=== PATIENT | male | born 1930 | race Caucasian/White ===

== ENCOUNTER 2016-06-14 10:45 | Inpatient (IN) ==
--- NOTE | 2016-06-14 15:35 | Pulmonology History & Physical ---
Date of Encounter: 06/14/16 Time of Encounter: 15:21 Assessment and Plan (1) Sepsis associated hypotension Current visit: Yes Status: Acute This elderly male with multiple comorbidities as previously outlined [facility] with [facility] shock secondary to MSSA bacteremia related to an infected left upper extremity AV fistula. The patient underwent surgical resection of the fistula, temporary hemodialysis catheter insertion and was treated appropriate antimicrobial agents based upon patient's allergy profile in the identification of MSSA from the blood. Patient is currently not hypotensive and has seemingly responded appropriately to medical measures for treatment of septic shock bacteremia and short-lived acute respiratory failure with hypoxia (underlying COPD plus possible aspiration pneumonia). Patient will be maintained on medications as delineated in his transfer sheet but most importantly he is to continue and complete a 6 week course of antibiotic therapy for MSSA endovascular infection (daptomycin). I also note the patient underwent evaluation for dysphagia and certainly is at risk of aspiration. Apparently from the speech pathology evaluation performed in [place], the patient was prescribed a grade honey thickened liquid diet. He will be reevaluated for this same situation while at [place]. Other medical therapies will be for provided for treatment of atrial fibrillation including anticoagulation with Coumadin. Should the patient's clinical status remained stable and he does not require ICU -type care. Nephrology service is aware of the patient and will be consulted for provision of dialytic support. Code(s): A41.9 - Sepsis, unspecified organism SNOMED Code(s): 58013516 History of Present Illness Chief complaint: Sepsis HPI: Mr. Stapleton is a 86 year old male transferred via life flight from [place] per request of the family as I understand it for continued care at [facility]. The patient presented to the local facility in [place] with altered mental status and fever. Ultimately, the patient was discovered to have localized infection of his left upper extremity AV fistula (end-stage renal disease patient) required resection of the same (2 1517) and underwent placement of a temporary left IJ catheter for hemodynamic dialysis. The other hospital course seemingly was complicated by the development of respiratory failure for which the patient required intubation for at least 1 or 2 days, possible aspiration pneumonia, encephalopathy. Patient did require administration of intravenous pressor agent for at least several days and at the time of the call to transfer this individual last week, he remained on low- dose pressor however that was titrated off perhaps 24-48 hours prior to the time of his transfer. This patient has an extensive past medical history which includes COPD, peripheral vascular disease for which she has a known abdominal aortic aneurysm , chronic atrial fibrillation and diastolic heart dysfunction, dementia, prostate cancer in the aforenoted end-stage renal disease. From review of the most recent progress note, the patient is currently receiving both daptomycin and meropenem for treatment of MSSA fistula infection (with bacteremia) and aspiration pneumonia respectively. The therapy for the aspiration pneumonia is seemingly complete at this time. Given the fact the patient had bacteremia however, will require a protracted course of daptomycin likely for 4 to 6 weeks assuming that he has sterilized blood cultures at this time and there is no evidence of dissemination of MSSA to other end organs. Patient is awake alert and communicative can answer very simple questions but is unable to provide any meaningful medical history. Past Med Surg Social Fam HX - Past Medical History Source: old records reviewed Medical history: aortic aneurysm, atrial fibrillation (Chronic), CHF, COPD, dementia, dialysis - Social History Smoking Status: Former smoker ROS unobtainable: due to mental status All Systems: A 10-system review of systems was performed and is negative for pertinent findings except as documented above in the HPI. Physical Examination Vital Signs: Vital Signs, Last 4 Hours Temp Pulse Resp BP Pulse Ox 06/14/16 15:01 100 06/14/16 15:00 97.6 F 82 16 114/81 97 General appearance: no acute distress, other (Elderly male appears chronically ill vitals reviewed) ENT: oropharynx moist Mallampati (class): 2 Neck: no lymphadenopathy Auscultation: bilateral: diminished breath sounds (Rhonchi bilaterally) Cardiovascular: irregular rhythm Gastrointestinal: normoactive bowel sounds Integumentary: other (No areas of hyperpigmentation over the feet and legs and arms bandaged left upper extremity from the site of AV fistula removal) Extremities: other (Note purple discoloration of left fifth toe) normal mental status, non-focal exam Results - Laboratory Findings Abnormal lab findings: Abnormal lab results POC Glucose 92 (58-89) H 06/14/16 14:52
[2016-06-14] MEDS ORDERED: Acetaminophen 325 MG TABLET PO PRN (15:57)
[2016-06-14] MEDS ORDERED: Naloxone 0.4 MG/ML INJ IVP PRN (15:57)
--- NOTE | 2016-06-14 16:25 | Event Note ---
Date of Encounter: 06/14/16 Time of Encounter: 16:22 I have reviewed outside laboratory data and we will listed in this note so that the information is not lost to the chart. From earlier today, the white count was 8.4 hemoglobin 9.5 platelet count of 85 the INR was 2.8 the INR the day before was 2.2 sodium 135 potassium 5.1 chloride 97 CO2 30 glucose 1:15 BUN 29 creatinine 3.25
[2016-06-14 17:46] LABS: INR 3.9
[2016-06-14 17:52] LABS: Prothrombin Time 43.6 Seconds (9.4-12.1)
[2016-06-14] MEDS: *HR* Warfarin 5 MG TABLET PO SCH (17:59)
[2016-06-14] MEDS: Famotidine 20 MG TABLET PO SCH (20:30)
[2016-06-14] MEDS ORDERED: traZODone 50 MG TABLET PO PRN (21:00)
[2016-06-14] MEDS: Ipratropium/Albuterol Neb 3 ML IH SCH (22:18)
[2016-06-15 03:25] LABS: Hematocrit 27.1 % (37.5-50.1); Hemoglobin 8.7 g/dL (12.9-16.9); Mean Corpuscular HGB Conc 32.1 g/dL (31.6-35.5); Mean Corpuscular Hemoglobin 34.8 pg (28.0-33.3); Mean Corpuscular Volume 108.4 fL (83.0-100.0); Nucleated Red Blood Cells 0.8 /100 WBC (0)
[2016-06-15 03:27] LABS: Immature Platelets 20.3 % (1.1-6.1); Mean Platelet Volume 12.3 fL (9.4-12.4); Red Cell Distribution Width 21.1 % (11.5-14.5)
[2016-06-15 03:38] LABS: Calcium 8.3 mg/dL (8.6-10.8); Potassium 5.2 mEq/L (3.5-4.5)
[2016-06-15 03:43] LABS: Platelet Count 91 K/mcL (140-400)
[2016-06-15 03:47] LABS: Lymphocytes # 0.5 K/mcL (0.6-4.6); Monocytes # 0.8 K/mcL (0.0-1.3); Neutrophils # 6.2 K/mcL (1.6-8.9); Platelet Estimate Decreased (Normal)
[2016-06-15 03:48] LABS: Large Platelets Present (Not Present); Polychromasia 1+ (Not Present); Target Cells 1+ (Not Present)
[2016-06-15 03:49] LABS: Anisocytosis 1+ (Not Present); Stomatocytes 1+ (Not Present)
[2016-06-15] MEDS: Ipratropium/Albuterol Neb 3 ML IH SCH ×4 (04:10→22:32)
[2016-06-15] MEDS: Levothyroxine 25 MCG TABLET PO SCH (06:41)
[2016-06-15 08:23] LABS: INR 5.6; Prothrombin Time 63.2 Seconds (9.4-12.1)
[2016-06-15] MEDS: predniSONE 10 MG TABLET PO SCH (08:34)
[2016-06-15] MEDS: Famotidine 20 MG TABLET PO SCH (08:34)
[2016-06-15] MEDS: Multivitamin Liquid 15 ML UDC PO SCH (08:35)
[2016-06-15] MEDS: *HR* Amiodarone 200 MG TABLET PO SCH (08:35)
--- NOTE | 2016-06-15 08:51 | Pulmonology Progress Note ---
Date of Encounter: 06/15/16 Time of Encounter: 08:49 Assessment and Plan (1) Sepsis associated hypotension Current Visit: Yes Status: Acute This elderly male with multiple comorbidities as previously outlined was [facility] with [facility] shock secondary to MSSA bacteremia related to an infected left upper extremity AV fistula. The patient underwent surgical resection of the fistula, temporary hemodialysis catheter insertion and was treated appropriate antimicrobial agents based upon patient's allergy profile in the identification of MSSA from the blood. Patient is currently not hypotensive and has seemingly responded appropriately to medical measures for treatment of septic shock bacteremia and short-lived acute respiratory failure with hypoxia (underlying COPD plus possible aspiration pneumonia). Patient will be maintained on medications as delineated in his transfer sheet but most importantly he is to continue and complete a 6 week course of antibiotic therapy for MSSA endovascular infection (daptomycin). Daptomycin was chosen as the antibiotic of choice given development of rash as a result of exposure to lactam drugs or my review of the infectious disease note from the [place] facility. Repeat blood cultures have been ordered in order to ensure the patient's bloodstream has been sterilized particularly in light of the need for placement of a more durable hemodialysis catheter. I also note the patient underwent evaluation for dysphagia and certainly is at risk of aspiration. Apparently from the speech pathology evaluation performed in [place], the patient was prescribed a grade honey thickened liquid diet. He will be reevaluated for this same situation while at [place]. Other medical therapies will be for provided for treatment of atrial fibrillation including anticoagulation with Coumadin. Coumadin is currently being held given elevation of INR which persists from evaluation of today's laboratory results. Should the patient's clinical status remained stable and he does not require ICU -type care. Nephrology service is aware of the patient and will be consulted for provision of dialytic support. Code(s): A41.9 - Sepsis, unspecified organism SNOMED Code(s): 50712285 Subjective Principal diagnosis: Sepsis Interval history: No acute overnight issues were noted per discussion with nursing staff. Patient 's hemodynamics are acceptable. He requires low-flow supplemental oxygen maintaining saturations in the upper 90% range. The patient is awake and alert this morning. He voices no complaints. He is mildly confused. Objective PUL Vital signs: Last Vital Signs Temp 97.5 F L 06/15/16 07:56 Pulse 93 06/15/16 07:00 Resp 14 06/15/16 07:00 BP 97/55 06/15/16 07:00 Pulse Ox 98 06/15/16 07:00 General appearance: no acute distress, other (Elderly male) Eyes: nonicteric ENT: oropharynx moist Neck: no lymphadenopathy, other (Left IJ HD catheter) Auscultation: bilateral: diminished breath sounds (Rhonchi bilaterally) Cardiovascular: irregular rhythm Gastrointestinal: normoactive bowel sounds, non-distended Integumentary: normal Extremities: edema, other (Note discoloration cyanosis of the left great toe, bluish discoloration of the other toes (similar to yesterday's evaluation). Pulses intact via Doppler per discussion with nursing staff.) Results - Laboratory Findings CBC and BMP: 06/15/16 03:17 06/15/16 03:17 PT/INR, D-dimer PT 63.2 Seconds (9.4-12.1) H* 06/15/16 07:42 Abnormal lab findings: Abnormal lab results RBC 2.50 M/mcL (4.19-5.50) L 06/15/16 03:17 Hgb 8.7 g/dL (12.9-16.9) L 06/15/16 03:17 Hct 27.1 % (37.5-50.1) L 06/15/16 03:17 MCV 108.4 fL (83.0-100.0) H 06/15/16 03:17 MCH 34.8 pg (28.0-33.3) H 06/15/16 03:17 RDW 21.1 % (11.5-14.5) H 06/15/16 03:17 Plt Count 91 K/mcL (140-400) L 06/15/16 03:17 Band Neutrophils % 10.0 % (0-4) H 06/15/16 03:17 Metamyelocytes % 2.0 % (0) H 06/15/16 03:17 Lymphocytes # 0.5 K/mcL (0.6-4.6) L 06/15/16 03:17 Nucleated RBCs/100 WBC 0.8 /100 WBC (0) H 06/15/16 03:17 Platelet Estimate Decreased (Normal) L 06/15/16 03:17 Large Platelets Present (Not Present) A 06/15/16 03:17 Immature Plt Fraction 20.3 % (1.1-6.1) H 06/15/16 03:17 Polychromasia 1+ (Not Present) A 06/15/16 03:17 Anisocytosis 1+ (Not Present) A 06/15/16 03:17 Target Cells 1+ (Not Present) A 06/15/16 03:17 Stomatocytes 1+ (Not Present) A 06/15/16 03:17 PT 63.2 Seconds (9.4-12.1) H* 06/15/16 07:42 INR 5.6 H* 06/15/16 07:42 Sodium 135 mEq/L (136-145) L 06/15/16 03:17 Potassium 5.2 mEq/L (3.5-4.5) H 06/15/16 03:17 BUN 43 mg/dL (8-26) H 06/15/16 03:17 Creatinine 4.36 mg/dL (0.72-1.25) H 06/15/16 03:17 Est GFR ( Amer) 16 (> 60) L 06/15/16 03:17 Est GFR (Non-Af Amer) 13 (> 60) L 06/15/16 03:17 POC Glucose 92 (58-89) H 06/14/16 14:52 Calcium 8.3 mg/dL (8.6-10.8) L 06/15/16 03:17 - Clinical Findings Intake & Output: Intake & Output 06/14/16 06/15/16 06/15/16 23:59 07:59 15:59 Intake Total 0 / 0 Output Total 0 / 0 0 / 0 Balance 0 / 0 0 / 0 Consult Discharge Plan - Plan Referrals: Carl Cormier DO [Primary Care Provider] -
[2016-06-15] MEDS ORDERED: Aspirin Enteric Coated 81 MG Tablet PO SCH (09:00)
--- NOTE | 2016-06-15 10:10 | Nephrology Consult Note ---
Date of Encounter: 06/15/16 Time of Encounter: 08:30 Assessment and Plan (1) ESRD (end stage renal disease) on dialysis Current Visit: Yes Status: Chronic Hx of ESRD on HD M/W/F. Patient of my colleague's Dr. Woodard. I search for his chronic/outpatient orders on the [facility], but since he has been out of the [facility] dialysis unit for so long (he was hospitalized in [place] since Apr), there were chronic orders, so I will empirically set him for HD tomorrow as follows: 3.5hr, 2K, 2.5Ca, 135Na, 35 CO2. He does not have much edema, so will target a weight near 88-89kg. Renal diet. Start Renal MTV CKD-BMD: trend Phos, Ca, Albumin (goal is 4 in the ESRD population) Anemia: see below Access: will check BCx to ensure that there is no ongoing bacteremia, which would then allow for placement of a Permacath. Please hold heparin (and if necessary consider heparin bridging) in anticipation of placing a Permacath. [facility] typically prefers to have "finalized" BCx before placing a Permacath and an INR <1.2. Will utilize the current left temporary HD catheter for HD tomorrow. Thank you for consulting the [facility] group. Will follow with you. (2) Anemia of chronic disease Current Visit: Yes Status: Chronic Could be multifactorial: ESRD, recent infection. I'll check iron studies and will empirically add BIJAN for a goal Hgb of 10-11. (3) MSSA (methicillin susceptible Staphylococcus aureus) infection Current Visit: Yes Status: Acute He was placed on Dapto; the pt had a reported allergic type response to Cephalosporins. Wound Care consult for the LUE: may need a wound vac Of note, if the pt will require Dapto, he may need a tunneled CVC (ideally avoid PICC lines in ESRD patients). At the outpatient dialysis unit, antiobiotic options are Vanco or Gent. (4) Hyperphosphatemia Current Visit: Yes Status: Chronic Will trend and continue the phos binder at current dosing Renal diet (low Phos and low K+) History of Present Illness - Reason for Consult Consult date: 06/15/16 end stage renal disease Requesting physician: Francesco Middleton - Chief Complaint ESRD, MSSA bacteremia and AVF infection - History of Present Illness 86 y/o WM with a pmh of ESRD, dementia, AF and et al who presented as a transfer from a distant outside hospital in [place]. The pt said he is from [place], [place], and his primary eclectic doctor is my colleague Dr. Woodard. His LUE AVF was excised per report and the wound in the LUE is draining. There is a left temporary dialysis catheter (it is placed rather odd and could be either in the base of the IJ or perhaps subclavian vein). He was not able to provide any signifiant or meaningful history. No family was present at bedside. I reviewed the progress notes and summarized history and discussed with Dr Middleton. He did not affirm N/V/D or chest pain. He voiced having a good appetite. I reviewed the [facility] to review his outpatient dialysis records: which did not have any recent findings, since he has been out of the local unit for at least a month. Past Med Surg Social Fam HX - Past Medical History Medical history: aortic aneurysm, atrial fibrillation (Chronic), CHF, COPD, dementia, dialysis - Past Surgical History Surgical History: cholecystectomy, IVC Filter - Social History Smoking Status: Former smoker Alcohol use: none Drug use: none - Family History Father Age: 70 Living Status: Age at : 70 Cause of : heart issues and stroke Hx Family Cardiac Disorders: Yes Hx Family Respiratory Disorders: No Hx Family Cancer: No Hx Family GI Disorders: No Hx Family Genitourinary Disorders: No Hx Family Endocrine Disorder: No Hx Family Musculoskeletal Disorders: No Hx Family Neuromuscular Disorders: No Hx Family Neurologic Disorders: No Hx Family HEENT Disorders: No Hx Family Autoimmune Disorders: No Hx Family Reproductive Disorders: No Hx Family Psychosocial Disorders: No Hx Family Medical Disorders: No Mother Living Status: Age at : 70 Cause of : cancer Medications and Allergies Amiodarone [Cordarone] 100 mg PO DAILY 06/14/16 [History] Aspirin [Lo-Dose Aspirin EC] 81 mg PO DAILY 06/14/16 [History] Donepezil [Aricept] 5 mg PO DAILY 06/14/16 [History] Famotidine [Heartburn Prevention] 20 mg PO DAILY 06/14/16 [History] Folic Acid/Vit Bcomp,C [Dialyvite Tablet] 1 tab PO DAILY 06/14/16 [History] Lactobacillus Acidophilus [Acidophilus] 1 tab PO BID 06/14/16 [History] Levothyroxine [Synthroid] 25 mcg PO DAILY 06/14/16 [History] Metoprolol Succinate/Hctz [Metoprolol ER-Hctz 25-12.5 mg] 1 tab PO BID 06/14/16 [History] Midodrine HCl 10 mg PO DAILY 06/14/16 [History] Sevelamer [Renvela] 800 mg PO TID 06/14/16 [History] Warfarin [Coumadin] 3.5 mg PO DAILY 06/14/16 [History] Allergies No Known Allergies Allergy (Verified 06/14/16 15:41) Review of Systems All Systems: reviewed and no additional remarkable complaints except as stated Exam - Vital Signs Vital signs: Initial Vital Signs Temp Pulse Resp BP Pulse Ox 97.6 F 82 16 114/81 97 06/14/16 15:00 06/14/16 15:00 06/14/16 15:00 06/14/16 15:00 06/14/16 15:00 Vital Signs - Last 8 Hours Temp Pulse Resp BP Pulse Ox 06/15/16 08:00 91 16 113/62 98 06/15/16 07:56 97.5 F L 06/15/16 07:00 93 14 97/55 98 06/15/16 06:00 88 18 90/55 100 06/15/16 05:00 98 14 119/74 99 06/15/16 04:10 18 98 06/15/16 04:00 83 14 119/68 99 06/15/16 03:00 87 12 104/64 98 Intake and Output 06/14/16 06/15/16 06/15/16 23:59 07:59 15:59 Intake Total 0 / 0 Output Total 0 / 0 0 / 0 Balance 0 / 0 0 / 0 Intake: Oral 0 / 0 Output: Urine 0 / 0 0 / 0 - General Appearance General appearance: well-developed, chronically ill, fatigue, frail EENT: ATNC, PERRL, mucous membranes moist Neck: supple Respiratory: clear Cardiology: no edema, regular rate, irregular rhythm, normal S1, normal S2 - Dialysis Access Additional Comments: LUE dressing was dirty and with the dressing off was draining. There is a left temporary HD catheter (appears to be either the base of the IJ or in the subclavian vein). Gastrointestinal: normoactive bowel sounds, no tenderness, no guarding Additional Comments: LUE wound Neurologic: no focal deficit, no asterixis, disoriented Musculoskeletal: no deformities, no erythema, no cyanosis Psychiatric: mood/affect appropriate, cooperative Results - Lab Results 06/15/16 03:17 06/15/16 03:17 Most recent lab results Calcium 8.3 mg/dL (8.6-10.8) L 06/15/16 03:17 I reviewed the above auto generated labs, meds, history, vitals, and available records plus progress notes. Consult Discharge Plan - Plan Referrals: Carl Cormier DO [Primary Care Provider] -
[2016-06-15] MEDS ORDERED: DAPTOmycin 600 MG in 0.9 % Sodium Chloride 100 ML IVPB SCH (17:00)
[2016-06-15] MEDS: *HR* Warfarin 5 MG TABLET PO SCH (18:40)
[2016-06-16 04:40] LABS: Basophils % 0.1 %; Hemoglobin 8.8 g/dL (12.9-16.9)
[2016-06-16 04:41] LABS: Eosinophils # 0.1 K/mcL (0.0-0.6); Hematocrit 27.8 % (37.5-50.1); Immature Granulocytes % 2.4 % (0-4); Immature Platelets 18.3 % (1.1-6.1); Lymphocytes # 0.5 K/mcL (0.6-4.6); Lymphocytes % 6.1 %; Mean Corpuscular HGB Conc 31.7 g/dL (31.6-35.5); Mean Corpuscular Hemoglobin 34.8 pg (28.0-33.3); Mean Corpuscular Volume 109.9 fL (83.0-100.0); Mean Platelet Volume 12.9 fL (9.4-12.4); Monocytes # 0.8 K/mcL (0.0-1.3); Monocytes % 9.1 %; Platelet Count 106 K/mcL (140-400); Red Blood Count 2.53 M/mcL (4.19-5.50); Red Cell Distribution Width 20.6 % (11.5-14.5); Segmented Neutrophils % 81.3 %
[2016-06-16 04:48] LABS: Neutrophils # 6.8 K/mcL (1.6-8.9)
[2016-06-16] MEDS: Ipratropium/Albuterol Neb 3 ML IH SCH ×4 (04:56→22:54)
[2016-06-16 04:58] LABS: Albumin 2.3 g/dL (3.5-5.0); Calcium 8.4 mg/dL (8.6-10.8); Phosphorous 6.9 mg/dL (2.3-4.7); Potassium 5.5 mEq/L (3.5-4.5)
[2016-06-16] MEDS: Levothyroxine 25 MCG TABLET PO SCH (06:16)
[2016-06-16] MEDS ORDERED: 0.9 % Sodium Chloride 250 ML IV PRN ×2 (07:49→11:56)
[2016-06-16] MEDS ORDERED: Albumin 25% 12.5gm/50mL 12.5 GM/50 ML IV.SOLN IVPB PRN ×2 (07:49→11:56)
--- NOTE | 2016-06-16 08:24 | Pulmonology Progress Note ---
<Leobardo Phipps - Last Filed: 06/16/16 18:22> Date of Encounter: 06/16/16 Time of Encounter: 08:10 Assessment and Plan (1) Sepsis associated hypotension Current Visit: Yes Status: Acute Patient transferred from [place], originally admitted for sepsis with hypotension. with MSSA Bacteremia, noted to have contaiminated dialysis fistula. Procedure note in records states fistula excised. In reviewing records it appears patient had a reaction to oxacillin. Patient has been continued on Daptomycin for what appears to be 12 days. Repeat cultures pending, if negative, IR to place permacath. (2) MSSA (methicillin susceptible Staphylococcus aureus) infection Current Visit: Yes Status: Acute Blood cultures pending, see plan above. (3) ESRD (end stage renal disease) on dialysis Current Visit: Yes Status: Chronic In discussion with nephrology, if blood cultures negative they plan to have patient NPO at midnight and permacath placed the following day by IR. Then can be discharged to continue dialysis through [facility] in [place]. Dialysis on Mon-Wed-Fri If needed, could consider tunnelled catheter placement. (4) Atrial fibrillation Current Visit: Yes Status: Chronic Chronic A fib on Warfarin. INR 5.6 yesterday, pending repeat INR today. Warfarin switched to dosing per pharmacy. Consider agents to reverse INR. Qualifiers: Atrial fibrillation type: chronic Qualified Code(s): I48.2 - Chronic atrial fibrillation (5) Anemia of chronic disease Current Visit: Yes Status: Chronic Stable, Hgb 8.7>8.8. (6) Hyperkalemia Current Visit: Yes Status: Acute Elevated at 5.5. Dialysis today. (7) Hyperphosphatemia Current Visit: Yes Status: Chronic Elevated at 6.9. Dialysis today Subjective Principal diagnosis: Sepsis Interval history: No acute overnight issues were noted per discussion with nursing staff. Patient 's hemodynamics are acceptable. He requires low-flow supplemental oxygen maintaining saturations in the upper 90% range. The patient is awake and alert this morning. He voices no complaints. States lack of appetite. Objective PUL Vital signs: Last Vital Signs Temp 95.8 F L 06/16/16 07:14 Pulse 82 06/16/16 08:04 Resp 16 06/16/16 06:00 BP 93/57 06/16/16 06:00 Pulse Ox 99 06/16/16 06:00 General appearance: no acute distress Eyes: nonicteric ENT: oropharynx moist Neck: supple Effort: normal Auscultation: bilateral: wheezes, rhonchi Cardiovascular: irregular rhythm Gastrointestinal: normoactive bowel sounds, soft, non-tender, non-distended Integumentary: other (areas of hyperpigmentation over the feet and legs and arms ; bandaged left upper extremity from the site of AV fistula removal.) Extremities: no edema, no clubbing, cool, other (1+ pulses bilaterally) Musculoskeletal: no deformities non-focal exam mood appropriate Results - Laboratory Findings CBC and BMP: 06/16/16 04:20 06/16/16 04:20 PT/INR, D-dimer PT 63.2 Seconds (9.4-12.1) H* 06/15/16 07:42 Abnormal lab findings: Abnormal lab results RBC 2.53 M/mcL (4.19-5.50) L 06/16/16 04:20 Hgb 8.8 g/dL (12.9-16.9) L 06/16/16 04:20 Hct 27.8 % (37.5-50.1) L 06/16/16 04:20 MCV 109.9 fL (83.0-100.0) H 06/16/16 04:20 MCH 34.8 pg (28.0-33.3) H 06/16/16 04:20 RDW 20.6 % (11.5-14.5) H 06/16/16 04:20 Plt Count 106 K/mcL (140-400) L 06/16/16 04:20 MPV 12.9 fL (9.4-12.4) H 06/16/16 04:20 Band Neutrophils % 10.0 % (0-4) H 06/15/16 03:17 Metamyelocytes % 2.0 % (0) H 06/15/16 03:17 Lymphocytes # 0.5 K/mcL (0.6-4.6) L 06/16/16 04:20 Nucleated RBCs/100 WBC 1.0 /100 WBC (0) H 06/16/16 04:20 Platelet Estimate Decreased (Normal) L 06/15/16 03:17 Large Platelets Present (Not Present) A 06/15/16 03:17 Immature Plt Fraction 18.3 % (1.1-6.1) H 06/16/16 04:20 Polychromasia 1+ (Not Present) A 06/15/16 03:17 Anisocytosis 1+ (Not Present) A 06/15/16 03:17 Target Cells 1+ (Not Present) A 06/15/16 03:17 Stomatocytes 1+ (Not Present) A 06/15/16 03:17 PT 63.2 Seconds (9.4-12.1) H* 06/15/16 07:42 INR 5.6 H* 06/15/16 07:42 Sodium 135 mEq/L (136-145) L 06/16/16 04:20 Potassium 5.5 mEq/L (3.5-4.5) H 06/16/16 04:20 BUN 55 mg/dL (8-26) H D 06/16/16 04:20 Creatinine 5.46 mg/dL (0.72-1.25) H 06/16/16 04:20 Est GFR ( Amer) 12 (> 60) L 06/16/16 04:20 Est GFR (Non-Af Amer) 10 (> 60) L 06/16/16 04:20 Glucose 114 mg/dL (70-99) H 06/16/16 04:20 POC Glucose 92 (58-89) H 06/14/16 14:52 Calcium 8.4 mg/dL (8.6-10.8) L 06/16/16 04:20 Phosphorus 6.9 mg/dL (2.3-4.7) H 06/16/16 04:20 Iron 51 mcg/dL (65-175) L 06/16/16 04:20 Transferrin 167 mg/dL (174-364) L 06/16/16 04:20 Ferritin 1381 ng/ml (22-275) H 06/16/16 04:20 Albumin 2.3 g/dL (3.5-5.0) L 06/16/16 04:20 PTH Intact 199.7 pg/ml (8.5-72.5) H 06/16/16 04:20 - Clinical Findings Intake & Output: Intake & Output 06/15/16 06/16/16 06/16/16 23:59 07:59 15:59 Intake Total 50 / 50 Balance 50 / 50 Weight 89.7 kg Consult Discharge Plan - Plan Referrals: Carl Cormier DO [Primary Care Provider] - <DaoNicole Daisy - Last Filed: 06/16/16 19:57> Date of Encounter: 06/16/16 Objective PUL Vital signs: Last Vital Signs Temp 97.9 F 06/16/16 15:43 Pulse 83 06/16/16 15:43 Resp 18 06/16/16 16:49 BP 92/60 06/16/16 15:43 Pulse Ox 98 06/16/16 16:49 Results - Laboratory Findings CBC and BMP: 06/16/16 04:20 06/16/16 04:20 PT/INR, D-dimer PT 64.5 Seconds (9.4-12.1) H* 06/16/16 11:25 Abnormal lab findings: Abnormal lab results RBC 2.53 M/mcL (4.19-5.50) L 06/16/16 04:20 Hgb 8.8 g/dL (12.9-16.9) L 06/16/16 04:20 Hct 27.8 % (37.5-50.1) L 06/16/16 04:20 MCV 109.9 fL (83.0-100.0) H 06/16/16 04:20 MCH 34.8 pg (28.0-33.3) H 06/16/16 04:20 RDW 20.6 % (11.5-14.5) H 06/16/16 04:20 Plt Count 106 K/mcL (140-400) L 06/16/16 04:20 MPV 12.9 fL (9.4-12.4) H 06/16/16 04:20 Band Neutrophils % 10.0 % (0-4) H 06/15/16 03:17 Metamyelocytes % 2.0 % (0) H 06/15/16 03:17 Lymphocytes # 0.5 K/mcL (0.6-4.6) L 06/16/16 04:20 Nucleated RBCs/100 WBC 1.0 /100 WBC (0) H 06/16/16 04:20 Platelet Estimate Decreased (Normal) L 06/15/16 03:17 Large Platelets Present (Not Present) A 06/15/16 03:17 Immature Plt Fraction 18.3 % (1.1-6.1) H 06/16/16 04:20 Polychromasia 1+ (Not Present) A 06/15/16 03:17 Anisocytosis 1+ (Not Present) A 06/15/16 03:17 Target Cells 1+ (Not Present) A 06/15/16 03:17 Stomatocytes 1+ (Not Present) A 06/15/16 03:17 PT 64.5 Seconds (9.4-12.1) H* 06/16/16 11:25 INR 5.7 H* 06/16/16 11:25 Sodium 135 mEq/L (136-145) L 06/16/16 04:20 Potassium 5.5 mEq/L (3.5-4.5) H 06/16/16 04:20 BUN 55 mg/dL (8-26) H D 06/16/16 04:20 Creatinine 5.46 mg/dL (0.72-1.25) H 06/16/16 04:20 Est GFR ( Amer) 12 (> 60) L 06/16/16 04:20 Est GFR (Non-Af Amer) 10 (> 60) L 06/16/16 04:20 Glucose 114 mg/dL (70-99) H 06/16/16 04:20 POC Glucose 92 (58-89) H 06/14/16 14:52 Calcium 8.4 mg/dL (8.6-10.8) L 06/16/16 04:20 Phosphorus 6.9 mg/dL (2.3-4.7) H 06/16/16 04:20 Iron 51 mcg/dL (65-175) L 06/16/16 04:20 Transferrin 167 mg/dL (174-364) L 06/16/16 04:20 Ferritin 1381 ng/ml (22-275) H 06/16/16 04:20 Creatine Kinase 20 Units/L (30-200) L 06/16/16 11:25 Albumin 2.3 g/dL (3.5-5.0) L 06/16/16 04:20 PTH Intact 199.7 pg/ml (8.5-72.5) H 06/16/16 04:20 - Clinical Findings Intake & Output: Intake & Output 06/16/16 06/16/16 06/16/16 07:59 15:59 23:59 Intake Total 600 / 600 0 / 0 Output Total 2099 / 2099 Balance -1500 / -1500 0 / 0 Weight 89.7 kg - Attending Attestation I examined this patient and my medical decision-making was reviewed with the AIRPLANE FLIGHT ATTENDANT/PA/Advanced Practice Nurse/Resident Physician. I agree with the documented findings, disposition and treatment plan as described except to the extent set forth below. Patient seen and examined. Labs, radiology, chart personally reviewed. 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 Nephrology following up with patient. Endorcine: blood glucose is monitored Lines: all lines checked and no evidence of infections Skin: skin care to prevent pressure ulcers per nursing routine care
[2016-06-16] MEDS: *HR* Amiodarone 200 MG TABLET PO SCH (08:34)
[2016-06-16] MEDS: Multivitamin Liquid 15 ML UDC PO SCH ×3 (08:36→10:51)
[2016-06-16] MEDS: predniSONE 10 MG TABLET PO SCH (08:37)
[2016-06-16] MEDS ORDERED: Aspirin 81 MG TAB.CHEW PO SCH (09:00)
[2016-06-16] MEDS ORDERED: Famotidine 20 MG TABLET PO SCH (09:00)
[2016-06-16] MEDS ORDERED: Renal Vitamin 1 MG CAPSULE PO SCH (09:00)
[2016-06-16] MEDS ORDERED: 0.9 % Sodium Chloride 2,000 ML ONE (09:38)
[2016-06-16] MEDS ORDERED: Albumin 25% 12.5gm/50mL 12.5 GM/50 ML IV.SOLN ONE (10:08)
--- NOTE | 2016-06-16 10:57 | Nephrology Progress Note ---
Date of Encounter: 06/16/16 Time of Encounter: 08:20 - Assessment and Plan (1) ESRD (end stage renal disease) on dialysis Current Visit: Yes Status: Chronic HD today. Pt was s/e while on HD this AM. Vitals, access pressures were reviewed. When his BCx return finalized, then he will need a Permacath. If he needs chronic Dapto, he may need a tunneled CVC vs a PICC Thank you. (2) Anemia of chronic disease Current Visit: Yes Status: Chronic (3) MSSA (methicillin susceptible Staphylococcus aureus) infection Current Visit: Yes Status: Acute (4) Hyperphosphatemia Current Visit: Yes Status: Chronic Subjective Principal diagnosis: Sepsis Interval history: Pt was seen/examined while on HD. He did not affirm N/V/D. Objective - Vital Signs Vital signs: Vital Signs Temp Pulse Resp BP Pulse Ox 06/16/16 10:42 81 22 81/55 99 06/16/16 09:55 77/51 06/16/16 09:40 77/51 06/16/16 09:25 95/56 06/16/16 09:10 93/60 06/16/16 09:00 85 22 83/55 99 06/16/16 08:55 97.5 F L 22 96/60 06/16/16 08:04 82 06/16/16 07:14 95.8 F L 06/16/16 06:00 82 16 93/57 99 06/16/16 05:00 82 12 97/64 100 06/16/16 04:56 16 98 06/16/16 04:00 81 14 99/62 100 06/16/16 03:00 96.8 F L 89 18 122/71 97 06/16/16 02:00 86 16 113/74 99 06/16/16 01:00 91 14 114/68 95 06/16/16 00:00 96.7 F L 94 16 118/85 96 06/15/16 23:00 91 12 121/59 95 06/15/16 22:32 17 95 06/15/16 22:00 88 14 131/79 96 06/15/16 21:00 96 16 125/68 94 L 06/15/16 20:00 100 16 130/68 93 L 06/15/16 19:00 97.5 F L 89 16 115/70 97 06/15/16 18:00 91 16 109/70 96 06/15/16 17:00 97 16 99/79 98 06/15/16 16:34 16 99 06/15/16 16:00 95 16 117/70 97 06/15/16 15:10 97.6 F 06/15/16 15:00 79 14 105/68 99 06/15/16 14:00 84 116/66 99 06/15/16 13:00 92 14 103/79 96 06/15/16 12:00 90 16 103/73 96 06/15/16 11:00 97.6 F 96 16 114/52 98 Intake and Output 06/15/16 06/16/16 06/16/16 23:59 07:59 15:59 Intake Total 50 / 50 15 / 15 600 / 600 Balance 50 / 50 15 / 15 600 / 600 Intake: Oral 50 / 50 15 / 15 Intake, Rinseback and 600 / 600 Flushes Other: Weight 89.7 kg Hemodialysis Net Fluid 600 Removed (mL) Patient Weight 06/16/16 23:59 Weight 89.7 kg - General Appearance Exam: General appearance: well-developed, chronically ill, fatigue, frail EENT: ATNC, PERRL, mucous membranes moist Neck: supple Respiratory: clear Cardiology: no edema, regular rate, irregular rhythm, normal S1, normal S2 - Dialysis Access Additional Comments: LUE dressing was dirty and with the dressing off was draining. There is a left temporary HD catheter (appears to be either the base of the IJ or in the subclavian vein). Gastrointestinal: normoactive bowel sounds, no tenderness, no guarding Additional Comments: LUE wound Neurologic: no focal deficit, no asterixis, disoriented Musculoskeletal: no deformities, no erythema, no cyanosis Psychiatric: mood/affect appropriate, cooperative - Lab 06/16/16 04:20 06/16/16 04:20 Most recent lab results Calcium 8.4 mg/dL (8.6-10.8) L 06/16/16 04:20 Phosphorus 6.9 mg/dL (2.3-4.7) H 06/16/16 04:20 Consult Discharge Plan - Plan Referrals: Carl Cormier DO [Primary Care Provider] -
[2016-06-16] MEDS ORDERED: traZODone 50 MG TABLET PO PRN (11:56)
[2016-06-16] MEDS ORDERED: Acetaminophen 325 MG TABLET PO PRN (11:56)
[2016-06-16] MEDS ORDERED: Naloxone 0.4 MG/ML INJ IVP PRN (11:56)
[2016-06-16 12:00] LABS: INR 5.7; Prothrombin Time 64.5 Seconds (9.4-12.1)
--- NOTE | 2016-06-16 13:25 | Internal Med History&Physical ---
<Dior Escobedo - Last Filed: 06/16/16 17:26> Date of Encounter: 06/16/16 Time of Encounter: 13:00 Assessment and Plan (1) Sepsis associated hypotension Current visit: Yes Status: Acute 1 improved- presently not on any pressers, continues on midorine- will continue to monitor BP- maintain >100 2 will hold metoprolol for systolic <100 3 we will continue with present ATB regime of Daptomycin. (2) Supratherapeutic INR Current visit: Yes Status: Acute 1 presently INR 5.7 - no s/sx of active bleed. Will hold coumadin for now. Monitor INR- Vit K (3) MSSA (methicillin susceptible Staphylococcus aureus) infection Current visit: Yes Status: Acute 1 patient blood cultures positive for MSSA originally given OXACILLIN however did have a reaction-papular macular rash. He was switched to daptomycin he is to receive daptomycin total 42 days post fistula excision-last day is 07/16/16. 2 continue to monitor CBC (4) Anemia of chronic disease Current visit: Yes Status: Chronic 1 presently patient's hemoglobin stable at 8.8 to continue to monitor CBC and transfuse as needed 2 continue with aranesp (5) Atrial fibrillation Current visit: Yes Status: Chronic 1 presently controlled rate we will continue with metoprolol with parameters to hold for systolic less than 100 rate less than 60. 2 we will continue with Coumadin and monitor INR daily dose to maintain INR 2- 3. Presently INR 5.7 we will hold Coumadin Qualifiers: Atrial fibrillation type: chronic Qualified Code(s): I48.2 - Chronic atrial fibrillation (6) ESRD (end stage renal disease) on dialysis Current visit: Yes Status: Chronic 1 she receives dialysis Thursday. Nephrology consulted for dialysis 2 monitor intake and output 3 daily weights 4 when nephrotoxins renal dose and probiotics 5 renal diet (7) DVT prophylaxis Current visit: Yes Status: Acute 1 she is on Coumadin (8) Physical deconditioning Current visit: Yes Status: Acute 1 she has extended hospitalization over a month NICU. We will consult PT and OT 2. May Require admission to ECF for extended therapy and strengthening (9) Pericardial friction rub present Current visit: Yes Status: Acute 1 Upon assessment noted a faint pericardial friction rub. This appears to be new. He denies any CP, EKG appears stable no diffuse ST elevation or WI depression. will obtain echo Internal Medicine - H&P: HPI Chief complaint: sepsis Admitted From: Intrahospital Transfer Plans for Post Hospital Care: Home History of present illness: Mr. Stapleton is a 86 year old male past medical history of end-stage renal disease requiring dialysis Thursday chronic atrial fibrillation CHF COPD dementia aortic aneurysm. Patient is presently confused information obtained from medical records as well as nursing staff. According medical records this patient was transferred via med flight to this facility from outlying facility in [place] (per family request) where he had been hospitalized for a little over a month. He had been admitted for septic shock secondary to MSSA bacteria related to infected left upper extremity AV fistula. AV fistula was removed and antibiotic treatment was initiated . He initially received oxacillin however. He developed a rash and was switched to daptomycin. Due to MSSA endovascular infection daptomycin should be continued and complete 6 week course of antibiotic therapy. Presently he is not on any pressors he is on very little oxygen support maintain oxygen saturation greater than 92%. He is being followed by nephrology services and received dialysis this a.m. without any complications. During assessment did note a faint pericardial friction rub, this appears to be new. He denies any CP He appears to be hemodynamically stable and has been admitted to medical floor for further treatment. I reviewed case with Dr Del Castillo who agrees with plan Past Med Surg Social Fam HX - Past Medical History Medical history: aortic aneurysm, atrial fibrillation (Chronic), CHF, COPD, dementia, dialysis - Past Surgical History Surgical History: cholecystectomy, IVC Filter - Social History Smoking Status: Former smoker Alcohol use: none Drug use: none - Family History Father Age: 70 Living Status: Age at : 70 Cause of : heart issues and stroke Hx Family Cardiac Disorders: Yes Hx Family Respiratory Disorders: No Hx Family Cancer: No Hx Family GI Disorders: No Hx Family Genitourinary Disorders: No Hx Family Endocrine Disorder: No Hx Family Musculoskeletal Disorders: No Hx Family Neuromuscular Disorders: No Hx Family Neurologic Disorders: No Hx Family HEENT Disorders: No Hx Family Autoimmune Disorders: No Hx Family Reproductive Disorders: No Hx Family Psychosocial Disorders: No Hx Family Medical Disorders: No Mother Living Status: Age at : 70 Cause of : cancer Internal Medicine - H&P: Meds Amiodarone [Cordarone] 100 mg PO DAILY 06/14/16 [History] Aspirin [Lo-Dose Aspirin EC] 81 mg PO DAILY 06/14/16 [History] Donepezil [Aricept] 5 mg PO DAILY 06/14/16 [History] Famotidine [Heartburn Prevention] 20 mg PO DAILY 06/14/16 [History] Folic Acid/Vit Bcomp,C [Dialyvite Tablet] 1 tab PO DAILY 06/14/16 [History] Lactobacillus Acidophilus [Acidophilus] 1 tab PO BID 06/14/16 [History] Levothyroxine [Synthroid] 25 mcg PO DAILY 06/14/16 [History] Metoprolol Succinate/Hctz [Metoprolol ER-Hctz 25-12.5 mg] 1 tab PO BID 06/14/16 [History] Midodrine HCl 10 mg PO DAILY 06/14/16 [History] Sevelamer [Renvela] 800 mg PO TID 06/14/16 [History] Warfarin [Coumadin] 3.5 mg PO DAILY 06/14/16 [History] Allergies Oxacillin Allergy (Verified 06/16/16 14:31) Rash ROS unobtainable: due to mental status All Systems PM: A 10-system review of systems was performed and is negative for pertinent findings except as documented above in the HPI. - Constitutional Vitals: Temp Pulse Resp BP Pulse Ox 97.5 F L 87 22 90/44 99 06/16/16 08:55 06/16/16 11:00 06/16/16 12:10 06/16/16 12:10 06/16/16 11:00 General appearance: Present: disheveled, A&O X 2, pleasant - Head Head exam: Present: atraumatic, normocephalic - Respiratory Respiratory exam: Present: rhonchi, wheezes. Absent: accessory muscle use, rales - Cardiovascular Cardiovascular exam: Present: irregular rhythm, rubs, +S1, +S2. Absent: diastolic murmur, gallop, systolic murmur - GI/Abdominal GI/Abdominal exam: Present: normal bowel sounds, soft, no peritoneal signs. Absent: distended, tenderness - Extremities Exam Extremities exam: Present: warm, radial pulses palpable and symetrical. Absent : calf tenderness, cyanotic, pedal edema - Neurological Exam Neurological exam: Present: alert, no focal deficits, strengths equal and symetr throughout. Absent: pronater drift, facial droop, speech deficit - Skin Skin exam: Present: dry, intact Additional comments: Ecchymotic areas covering upper and lower extremities at various stages of healing Internal Med - H&P Results - Labs CBC & Chem 7: 06/16/16 04:20 06/16/16 04:20 Labs: Short CBC 06/16/16 Range/Units 04:20 WBC 8.3 (4.3-11.1) K/mcL Hgb 8.8 L (12.9-16.9) g/dL Hct 27.8 L (37.5-50.1) % Plt Count 106 L (140-400) K/mcL Neutrophils # 6.8 (1.6-8.9) K/mcL BMP 06/16/16 04:20 Sodium 135 L Potassium 5.5 H Chloride 100 Carbon Dioxide 23 BUN 55 H D Creatinine 5.46 H Glucose 114 H Calcium 8.4 L Liver Function 06/16/16 Range/Units 04:20 Albumin 2.3 L (3.5-5.0) g/dL <García Del Castillo - Last Filed: 06/17/16 15:21> Date of Encounter: 06/17/16 Internal Medicine - H&P: HPI History of present illness: Mr. Stapleton is a 86 year old male All Systems PM: A 10-system review of systems was performed and is negative for pertinent findings except as documented above in the HPI. - Constitutional Vitals: Temp Pulse Resp BP Pulse Ox 97.5 F L 78 16 88/44 100 06/17/16 12:58 06/17/16 12:58 06/17/16 12:58 06/17/16 12:58 06/17/16 12:58 Internal Med - H&P Results - Labs CBC & Chem 7: 06/17/16 09:25 06/17/16 06:31 Labs: Short CBC 06/17/16 Range/Units 09:25 WBC 7.1 (4.3-11.1) K/mcL Hgb 8.4 L (12.9-16.9) g/dL Hct 26.8 L (37.5-50.1) % Plt Count 101 L (140-400) K/mcL Neutrophils # 5.5 (1.6-8.9) K/mcL BMP 06/17/16 06:31 Sodium 136 Potassium 4.6 H Chloride 99 Carbon Dioxide 26 BUN 35 H D Creatinine 3.90 H Glucose 71 Calcium 8.2 L - ABG Interpretation ABG results: 06/17/16 13:30 ABG pH 7.31 L ABG pCO2 56 H ABG pO2 98 ABG HCO3 28.2 H ABG Total CO2 29.9 H ABG O2 Saturation 97 ABG Base Excess 1.4 - Impressions ITS Impressions Chest X-Ray 06/17/16 10:49 IMPRESSION: 1. Airspace and interstitial opacities bilaterally which either reflect pulmonary edema or multifocal pneumonia. 2. Small bilateral pleural effusions. 3. Left central venous catheter with the tip overlying the distal left brachiocephalic vein. D/ / 06/17/2016 13:08:07 Erin Henriquez MD / Adriane Davies Interpreting Provider: Erin Henriquez MD - Attending Attestation I examined this patient and my medical decision-making was reviewed with the Advanced Practice Provider. I agree with the documented findings, disposition and treatment plan as described except to the extent set forth below. The patient was transferred to our care from the ICU today after being treated for MSSA sepsis. On exam he is in no acute distress, confused. Heart is regular S1-S2. Lungs are coarse bilaterally. We will continue treatment with intravenous daptomycin as the patient has a well -documented allergy to oxacillin. We will hold Lasix today given the rising creatinine. The patient is full code and this was discussed with patient's family at the bedside.
[2016-06-16] MEDS: Silvasorb 44.4 ML TUBE TP SCH (17:08)
[2016-06-16] MEDS ORDERED: *HR* Phytonadione 5 MG TABLET PO ONE ×3 (17:26→20:07)
[2016-06-16] MEDS ORDERED: Warfarin perPT PO PRN ×2 (18:00)
[2016-06-16 19:14] LABS: Hepatitis B Surface Antigen Nonreactive (Nonreactive)
[2016-06-17] MEDS: Ipratropium/Albuterol Neb 3 ML IH SCH ×4 (04:28→22:35)
[2016-06-17] MEDS ORDERED: Levothyroxine 25 MCG TABLET PO SCH (06:30)
[2016-06-17 06:42] LABS: Prothrombin Time 52.6 Seconds (9.4-12.1)
[2016-06-17 06:44] LABS: INR 4.6
[2016-06-17 06:48] LABS: Calcium 8.2 mg/dL (8.6-10.8); Potassium 4.6 mEq/L (3.5-4.5)
[2016-06-17] MEDS ORDERED: Famotidine 20 MG TABLET PO SCH (09:00)
[2016-06-17] MEDS ORDERED: *HR* Amiodarone 200 MG TABLET PO SCH (09:00)
[2016-06-17] MEDS ORDERED: predniSONE 10 MG TABLET PO SCH (09:00)
[2016-06-17] MEDS ORDERED: Multivitamin Liquid 15 ML UDC PO SCH (09:00)
[2016-06-17] MEDS ORDERED: Aspirin 81 MG TAB.CHEW PO SCH (09:00)
[2016-06-17 09:35] LABS: Basophils % 0.1 %; Eosinophils # 0.1 K/mcL (0.0-0.6); Eosinophils % 1.1 %; Hematocrit 26.8 % (37.5-50.1); Hemoglobin 8.4 g/dL (12.9-16.9); Immature Granulocytes % 1.5 % (0-4); Lymphocytes # 0.5 K/mcL (0.6-4.6); Lymphocytes % 7.4 %; Mean Corpuscular HGB Conc 31.3 g/dL (31.6-35.5); Mean Corpuscular Hemoglobin 34.3 pg (28.0-33.3); Mean Corpuscular Volume 109.4 fL (83.0-100.0); Mean Platelet Volume 13.2 fL (9.4-12.4); Monocytes # 0.9 K/mcL (0.0-1.3); Neutrophils # 5.5 K/mcL (1.6-8.9); Nucleated Red Blood Cells 0.4 /100 WBC (0); Platelet Count 101 K/mcL (140-400); Red Blood Count 2.45 M/mcL (4.19-5.50); Red Cell Distribution Width 20.7 % (11.5-14.5); Segmented Neutrophils % 76.9 %
--- NOTE | 2016-06-17 09:45 | Internal Med Progress Note ---
<Manish Gardner - Last Filed: 06/17/16 09:43> Date of Encounter: 06/17/16 Time of Encounter: 09:43 - Assessment and plan (1) AV fistula infection Current Visit: Yes Status: Acute Assessment and plan: Diagnosed at facility in [place] supposedly with MSSA. Patient was initially treated with oxacillin and had an allergic reaction. Patient is currently on daptomycin. This infection was surgically addressed in [place]. Infection appears to be improving, white count was normal, no other signs or symptoms of Infection. Continue daptomycin. Qualifiers: Encounter type: subsequent encounter Qualified Code(s): T82.7XXD - Infection and inflammatory reaction due to other cardiac and vascular devices, implants and grafts, subsequent encounter (2) Sepsis associated hypotension Current Visit: Yes Status: Acute Assessment and plan: Secondary to infected AV fistula Improving at this time. Blood pressure stable. Continue current antibiotic treatment with daptomycin. (3) Supratherapeutic INR Current Visit: Yes Status: Acute Assessment and plan: INR is 4.6 today. Was 5.7 yesterday and patient was given 3.75 mg of vitamin K. There is no evidence of active bleeding. No indication for FFP at this time. Continue to hold Coumadin. (4) Anemia of chronic disease Current Visit: Yes Status: Chronic Assessment and plan: Stable at this time. No evidence of active bleeding. Continue erythropoietin stimulating agents per nephrology. (5) Atrial fibrillation Current Visit: Yes Status: Chronic Assessment and plan: Rate controlled. Currently anticoagulated with Coumadin. Coumadin is being held due to supratherapeutic INR as discussed above. Qualifiers: Atrial fibrillation type: chronic Qualified Code(s): I48.2 - Chronic atrial fibrillation (6) ESRD (end stage renal disease) on dialysis Current Visit: Yes Status: Chronic Assessment and plan: Nephrology is following. Patient currently has a temporary hemodialysis catheter for access. Once INR is suitable patient will likely need permacath placement by interventional radiology. (7) Physical deconditioning Current Visit: Yes Status: Acute Assessment and plan: Patient is extremely weak this time. Will likely require ECF at discharge. PT/ OT is seeing the patient. (8) DVT prophylaxis Current Visit: Yes Status: Acute Assessment and plan: Not indicated at this time as the patient is on Coumadin and supratherapeutic with his INR as discussed above. - Subjective Interval history: Patient seen and examined at bedside. Patient is somewhat lethargic and confused. Alert and oriented 2. He does deny that he is in any pain. Spoke with the daughter bedside who states he appears weaker than normal but this is his baseline mental status. - Constitutional Vitals: Temp Pulse Resp BP Pulse Ox 97.4 F L 84 20 92/59 95 06/17/16 07:32 06/17/16 07:32 06/17/16 07:32 06/17/16 07:32 06/17/16 07:32 General appearance: Present: A&O X 2, pleasant, no acute distress - Respiratory Respiratory exam: Present: decreased breath sounds. Absent: rales, rhonchi, wheezes - Cardiovascular Cardiovascular exam: Present: irregular rhythm. Absent: gallop, rubs, systolic murmur, tachycardia - GI/Abdominal GI/Abdominal exam: Present: normal bowel sounds, soft. Absent: distended, tenderness - Extremities Exam Extremities exam: Present: pedal edema (Trace). Absent: tenderness - Neurological Exam Neurological exam: Present: alert, altered, no focal deficits. Absent: oriented X3 Internal Medicine: Result - Labs CBC & Chem 7: 06/16/16 04:20 06/17/16 06:31 Labs: BMP 06/17/16 06:31 Sodium 136 Potassium 4.6 H Chloride 99 Carbon Dioxide 26 BUN 35 H D Creatinine 3.90 H Glucose 71 Calcium 8.2 L - ABG Interpretation ABG results: PT/INR, D-dimer PT 52.6 Seconds (9.4-12.1) H* 06/17/16 06:31 Consult Discharge Plan - Plan Referrals: Carl Cormier DO [Primary Care Provider] - <Trae Angel H - Last Filed: 06/17/16 10:51> Date of Encounter: 06/17/16 - Constitutional Vitals: Temp Pulse Resp BP Pulse Ox 97.4 F L 84 20 92/59 95 06/17/16 07:32 06/17/16 07:32 06/17/16 07:32 06/17/16 07:32 06/17/16 07:32 Internal Medicine: Result - Labs CBC & Chem 7: 06/17/16 09:25 06/17/16 06:31 Labs: Short CBC 06/17/16 Range/Units 09:25 WBC 7.1 (4.3-11.1) K/mcL Hgb 8.4 L (12.9-16.9) g/dL Hct 26.8 L (37.5-50.1) % Plt Count 101 L (140-400) K/mcL Neutrophils # 5.5 (1.6-8.9) K/mcL BMP 06/17/16 06:31 Sodium 136 Potassium 4.6 H Chloride 99 Carbon Dioxide 26 BUN 35 H D Creatinine 3.90 H Glucose 71 Calcium 8.2 L - ABG Interpretation ABG results: PT/INR, D-dimer PT 52.6 Seconds (9.4-12.1) H* 06/17/16 06:31 - Attending Attestation Sepsis secondary to left upper extremity AV fistula wound infection, likely MSSA We will try to obtain the cultures from [place] to consider other antibiotic. Daptomycin day 13 of 42? repeat wound culture COmpleted 7 days of merrem. Check CXR consider CT scan of the chest /ABG if the patient's mental status worsens I examined this patient and my medical decision-making was reviewed with the CLINICAL RESEARCH ASSISTANT/PA/Advanced Practice Nurse/Resident Physician. I agree with the documented findings, disposition and treatment plan as described except to the extent set forth below.
--- NOTE | 2016-06-17 09:54 | ECHO - Doppler Report ---
Echocardiogram Name: Tawanda Stapleton Date of Study: 06/17/2016 Date: 1930 Ht: 66.0 in Medical Record#: [id number] Age: 86 Wt: 195.0 lb Gender: Male BSA: 1.98 Order #: [id number] Location: [facility] Room #: 2A47 Reading Physician: Rosie Alva DO Pot[employer] Sacking Machine Operator: Wilver Cueva RN Ordering Physician: Dior Escobedo CNP Primary Physician: Carl Cormier DO Indications: Friction Rub Impressions: LVEF 50-55%. Normal left ventricular size and systolic function. Indeterminate diastolic function. RV is normal in size with moderate reduction in function. Mild aortic regurgitation. Moderate mitral regurgitation. Moderate tricuspid regurgitation. Mild pulmonic regurgitation. Moderate pulmonary hypertension. There is a small sized pericardial effusion. There is no echocardiographic evidence of tamponade physiology. Left Ventricular Wall Motion: Rest Echo Findings The apex wall was hypokinetic. The apical septal, mid inferior septal, basal inferior septal, mid anterior septal and basal anterior septal yarbrough were dyskinetic. All other wall segments showed normal motion. Findings: Study Quality * Technically adequate exam. ECG Findings * Atrial fibrillation. Left Ventricle * Indeterminate diastolic function. * LVEF 50-55%. * LV size and wall thickness appear normal. Left Atrium * Severely dilated left atrium. Mitral Valve * No mitral stenosis. * Mildly calcified mitral valve leaflets. * Moderate mitral regurgitation. Aortic Valve * Aortic valve not well visualized. * Mild aortic regurgitation. * No aortic stenosis. Tricuspid Valve * Normal tricuspid valve structure. * Estimated RA pressure is 8 mmHg. * Estimated RVSP is 54 mmHg. * Moderate pulmonary hypertension. * Moderate tricuspid regurgitation. Pulmonic Valve * Pulmonic valve is not well visualized. * No pulmonic stenosis. * Mild pulmonic regurgitation. Pulmonary Artery * Normal visualized portions of the main pulmonary artery. Right Ventricle * Normal RV size with moderate reduction in function. Right Atrium * Mildly dilated right atrium. Interatrial Septum * No evidence of PFO by color Doppler. IVC * The IVC is not dilated. * < 50% respiratory change. Aorta * Normally sized aortic root. Pericardium * There is a small pericardial effusion present. No tamponade. History Hypertension History of CAD/PTCA Myocardial Infarction Congestive Heart Failure 03/03/2013 a Previous Echo was performed. Measurements: BP: 92/ 59 2D Normal Values IVSd: 1.00 cm 0.6 - 1.0 cm LVIDd: 4.80 cm 3.7 - 5.6 cm LVPWd: 1.00 cm 0.6 - 1.1 cm LVIDs: 3.50 cm 1.5 - 3.6 cm LA: 5.20 cm 2.0 - 4.0cm %FS: 27.10 cm >25 % LVOT Diam: 2.00 cm LA volume: 148 Mitral Valve Peak E:1.11 m/sec Peak E' Lat Daniel:6.24 cm/s Peak E' Med Daniel:6.04 cm/s E/E' Lat Ratio:17.8 E/E' Med Ratio:18.4 Aortic Valve AI pressure Half-time: 397.00 msec Tricuspid Valve TV Regurg Peak Grad: 46.00mmHg Updated by Rosie Alva on 06/17/2016 9:47:31 AM electronically signed on 06/17/2016 9:48:20 AM with status of Final Wall Motion Choi: 1=Normal, 2=Hypokinesis, 3=Akinesis, 4=Dyskinesis, 5=Aneurysmal, 6=Hyperkinetic, X=Not Visualized (Blank)=Missing
--- NOTE | 2016-06-17 10:57 | Nephrology Progress Note ---
Date of Encounter: 06/17/16 Time of Encounter: 09:15 - Assessment and Plan (1) ESRD (end stage renal disease) on dialysis Current Visit: Yes Status: Chronic Next HD is planned for tomorrow. Met his daughter who works here at [place] Follow a renal protective strategy Renal diet When his BCx return finalized, then he will need a Permacath. If he needs chronic Dapto, he may need a tunneled CVC vs a PICC Thank you. (2) Anemia of chronic disease Current Visit: Yes Status: Chronic Goal Hgb is 10-11 (3) MSSA (methicillin susceptible Staphylococcus aureus) infection Current Visit: Yes Status: Acute See above (4) Hyperphosphatemia Current Visit: Yes Status: Chronic Renal diet Subjective Principal diagnosis: Sepsis Interval history: Pt was seen/examined. He did not affirm N/V/D. Objective - Vital Signs Vital signs: Vital Signs Temp Pulse Resp BP Pulse Ox 06/17/16 10:52 20 95 06/17/16 07:32 97.4 F L 84 20 92/59 95 06/17/16 04:28 20 75 L 06/17/16 03:56 97.5 F L 84 19 76/43 97 06/17/16 00:19 97.4 F L 87 19 92/62 96 06/16/16 22:54 18 77 L 06/16/16 19:57 98.1 F 84 18 92/27 95 06/16/16 16:49 18 98 06/16/16 15:43 97.9 F 83 18 92/60 98 06/16/16 14:11 131/68 06/16/16 13:50 97.4 F L 88 18 131/68 95 06/16/16 12:10 22 90/44 06/16/16 11:55 90/44 06/16/16 11:40 90/45 06/16/16 11:25 92/45 06/16/16 11:10 79/50 06/16/16 11:00 87 20 79/50 99 06/16/16 10:57 20 99 Intake and Output 06/16/16 06/17/16 06/17/16 23:59 07:59 15:59 Intake Total 0 / 0 Balance 0 / 0 Intake: Oral 0 / 0 Other: Meal Dinner Percent of Meal Consumed 0% Weight 88.8 kg Patient Weight 06/17/16 23:59 Weight 88.8 kg - General Appearance Exam: General appearance: well-developed, chronically ill, fatigue, frail EENT: ATNC, PERRL, mucous membranes moist Neck: supple Respiratory: clear Cardiology: no edema, regular rate, irregular rhythm, normal S1, normal S2 - Dialysis Access Additional Comments: LUE dressing was dirty and with the dressing off was draining. There is a left temporary HD catheter (appears to be either the base of the IJ or in the subclavian vein). Gastrointestinal: normoactive bowel sounds, no tenderness, no guarding Additional Comments: LUE wound Neurologic: no focal deficit, no asterixis, disoriented Musculoskeletal: no deformities, no erythema, no cyanosis Psychiatric: mood/affect appropriate, cooperative - Lab 06/18/16 05:40 06/18/16 05:40 Most recent lab results Calcium 8.2 mg/dL (8.6-10.8) L 06/17/16 06:31 Phosphorus 6.9 mg/dL (2.3-4.7) H 06/16/16 04:20 Consult Discharge Plan - Plan Referrals: Carl Cormier DO [Primary Care Provider] - (possible ecf placement )
[2016-06-17] MEDS: Silvasorb 44.4 ML TUBE TP SCH (12:46)
--- NOTE | 2016-06-17 13:12 | Palliative - Consult Note ---
Date of Encounter: 06/17/16 Time of Encounter: 13:05 - Assessment and Plan (1) Decreased oral intake Current Visit: Yes Status: Acute Assessment and plan: Patient daughter states po liquids has been issues and pt dislikes thickened liquids. Albumin 2.3. D/W Janell passenger attendant, magic cups ordered. Will monitor po intake. (2) Counseling regarding advanced care planning and goals of care Current Visit: Yes Status: Acute Assessment and plan: Patient is pleasantly confused - unable to participate in goals of care discussion. Daughter Donna is at bedside and she works here at [place]. She states that pt has completed advanced directives and living will is found on the record. Daughter states pt and reside in [place] for winter and live in [facility]. She states that he was fairly independent, could do most of ADL's and ambulated on a walker until he fell on 2/5 and ended up in [facility]. Discussed code status - daughter states that he has expressed he wanted resuscitation, however, would not want prolonged life support. Will continue to follow hospital course, some concern over feeding and nutritional status. Daughter states pt dislikes thickened liquids. Will d/w dieticians. (3) AV fistula infection Current Visit: Yes Status: Acute Qualifiers: Encounter type: subsequent encounter Qualified Code(s): T82.7XXD - Infection and inflammatory reaction due to other cardiac and vascular devices, implants and grafts, subsequent encounter (4) ESRD (end stage renal disease) on dialysis Current Visit: Yes Status: Chronic (5) Supratherapeutic INR Current Visit: Yes Status: Acute Palliative-CN HPI - Data of Consult Consult date: 06/17/16 Requesting Physician: Trae Angel Primary Care Provider: Carl Cormier - Consult Narrative History of present illness: Mr. Stapleton is a 86 year old male with a history of end stage renal disease on dialysis, who was in [place] at the beginning of the month, fell out of bed, and was taken to hospital. Treated for sepsis and infection of fistula. Also has history of COPD, CHF, and dementia. He had prolonged hospital course and pt and desired to come closer to home for treatment, so arrangements made for transport to [place]. Patient remains on IV antibiotics. Temp dialysis catheter in place. Has had subtherapeutic INR - has decreased to 4.6 today - daughter states has been quite some time since pt had Coumadin. Blood cultures completed here at [place] negative thus far. Upon my visit, he appears comfortable and in no distress. He denies any pain or difficulty breathing. He is not oriented to place, but after re-orienting him, a few minutes later he was able to tell me he was in the hospital. Cannot tell me the names of his children. Asking to "lie down". Has recently ate breakfast - pt with wet cough upon my entering room. Explained to pt would be best to keep head elevated after eating. CC: Trae Angel Past Med Surg Social Fam HX - Past Medical History Medical history: aortic aneurysm, atrial fibrillation (Chronic), CHF, COPD, dementia, dialysis - Past Surgical History Surgical History: cholecystectomy, IVC Filter - Social History Smoking Status: Former smoker Alcohol use: none Drug use: none - Family History Father Age: 70 Living Status: Age at : 70 Cause of : heart issues and stroke Hx Family Cardiac Disorders: Yes Hx Family Respiratory Disorders: No Hx Family Cancer: No Hx Family GI Disorders: No Hx Family Genitourinary Disorders: No Hx Family Endocrine Disorder: No Hx Family Musculoskeletal Disorders: No Hx Family Neuromuscular Disorders: No Hx Family Neurologic Disorders: No Hx Family HEENT Disorders: No Hx Family Autoimmune Disorders: No Hx Family Reproductive Disorders: No Hx Family Psychosocial Disorders: No Hx Family Medical Disorders: No Mother Living Status: Age at : 70 Cause of : cancer Medications and Allergies Amiodarone [Cordarone] 100 mg PO DAILY 06/14/16 [History] Aspirin [Lo-Dose Aspirin EC] 81 mg PO DAILY 06/14/16 [History] Donepezil [Aricept] 5 mg PO DAILY 06/14/16 [History] Famotidine [Heartburn Prevention] 20 mg PO DAILY 06/14/16 [History] Folic Acid/Vit Bcomp,C [Dialyvite Tablet] 1 tab PO DAILY 06/14/16 [History] Lactobacillus Acidophilus [Acidophilus] 1 tab PO BID 06/14/16 [History] Levothyroxine [Synthroid] 25 mcg PO DAILY 06/14/16 [History] Metoprolol Succinate/Hctz [Metoprolol ER-Hctz 25-12.5 mg] 1 tab PO BID 06/14/16 [History] Midodrine HCl 10 mg PO DAILY 06/14/16 [History] Sevelamer [Renvela] 800 mg PO TID 06/14/16 [History] Warfarin [Coumadin] 3.5 mg PO DAILY 06/14/16 [History] Allergies Oxacillin Allergy (Verified 06/16/16 14:31) Rash ROS unobtainable: due to mental status Palliative Care-Exam - Constitutional Vitals: Temp Pulse Resp BP Pulse Ox 97.5 F L 78 16 88/44 100 06/17/16 12:58 06/17/16 12:58 06/17/16 12:58 06/17/16 12:58 06/17/16 12:58 General appearance: Present: no acute distress - Head Head Exam: Present: normal inspection, normocephalic - Eye Eye exam: Present: normal appearance, PERRL - Respiratory Respiratory exam: Present: decreased breath sounds, CTAB Additional comments: Shallow inspiratory effort - Cardiovascular Cardiovascular exam: Present: irregular rhythm - GI/Abdominal Exam GI/Abdominal exam: Present: normal bowel sounds, soft - Extremities Exam Additional comments: 2+ bilateral pedal edema - Neurological Exam Neurological exam: Present: alert Additional comments: Oriented to name only. Reoriented and was able to state a few minutes later he was in [facility] - Skin Skin exam: Present: dry, pallor, warm Internal Medicine - CN: Reslt - Labs CBC & Chem 7: 06/17/16 09:25 06/17/16 06:31 Labs: Short CBC 06/17/16 Range/Units 09:25 WBC 7.1 (4.3-11.1) K/mcL Hgb 8.4 L (12.9-16.9) g/dL Hct 26.8 L (37.5-50.1) % Plt Count 101 L (140-400) K/mcL Neutrophils # 5.5 (1.6-8.9) K/mcL BMP 06/17/16 06:31 Sodium 136 Potassium 4.6 H Chloride 99 Carbon Dioxide 26 BUN 35 H D Creatinine 3.90 H Glucose 71 Calcium 8.2 L - ABG Interpretation ABG results: PT/INR, D-dimer PT 52.6 Seconds (9.4-12.1) H* 06/17/16 06:31 - Impressions Impressions Chest X-Ray 06/17/16 10:49 IMPRESSION: 1. Airspace and interstitial opacities bilaterally which either reflect pulmonary edema or multifocal pneumonia. 2. Small bilateral pleural effusions. 3. Left central venous catheter with the tip overlying the distal left brachiocephalic vein. D/ / Erin Henriquez MD / Erin Henriquez MD Interpreting Provider: Erin Henriquez MD Consult Discharge Plan - Plan Referrals: Carl Cormier DO [Primary Care Provider] - (possible ecf placement ) Palliative Quality Palliative Quality: Screen for Code Status: Yes, Screen for Goals of Care: Yes, Screen for Pain: Yes, If Pain Regimen Started, Initiate Bowel Regimen: NA, Screen for Nausea/Vomitting: NA Code Status: 06/14/16 15:57 Resuscitation Status: Active [RES] Routine Comment: Resuscitation Status: Full Code
[2016-06-17 13:47] LABS: ABG Base Excess 1.4 mEq/L (-2.0 to 3.0); ABG HCO3 28.2 mEQ/L (21-27); ABG Oxygen Saturation 97 % (95-98); ABG PCO2 56 mmHg (35-45); ABG PH 7.31 pH Units (7.32-7.45); ABG PO2 98 mmHg (85-104); ABG TCO2 29.9 mEq/L (20-26)
[2016-06-17 13:48] LABS: Blood Gas Liter Flow 2 L/MIN; Blood Gas Respiration Rate 28
--- NOTE | 2016-06-17 16:17 | Electrocardiograph Report ---
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
[2016-06-17] MEDS ORDERED: Naloxone 0.4 MG/ML INJ IVP PRN (16:44)
[2016-06-17] MEDS ORDERED: Acetaminophen 325 MG TABLET PO PRN (16:44)
[2016-06-17] MEDS ORDERED: traZODone 50 MG TABLET PO PRN (16:44)
--- NOTE | 2016-06-17 16:55 | Pulmonology Progress Note ---
<Leobardo Phipps - Last Filed: 06/17/16 17:18> Date of Encounter: 06/17/16 Time of Encounter: 16:54 Assessment and Plan (1) Sepsis associated hypotension Current Visit: Yes Status: Acute Patient transferred from [place], originally admitted for sepsis with hypotension. with MSSA Bacteremia, noted to have contaiminated dialysis fistula. Procedure note in records states fistula excised. In reviewing records it appears patient had a reaction to oxacillin. Patient has been continued on Daptomycin, request sent to [place] to retrieve culture results and sensitivity. Continue Midodrine 10mg TID. Consider albumin if BP declines. (2) MSSA (methicillin susceptible Staphylococcus aureus) infection Current Visit: Yes Status: Acute Blood cultures pending and previous culture results requested. See plan above. (3) ESRD (end stage renal disease) on dialysis Current Visit: Yes Status: Chronic Plan for dialysis tomorrow. In discussion with nephrology, if blood cultures negative they plan to have patient NPO at midnight and permacath placed the following day by IR. Then can be discharged to continue dialysis through [facility] in [place]. Dialysis on Mon-Wed-Fri If needed, could consider tunnelled catheter placement. (4) Atrial fibrillation Current Visit: Yes Status: Chronic Chronic A fib on Warfarin. INR 4.6 today. Warfarin switched to dosing per pharmacy. Consider agents to reverse INR. Qualifiers: Atrial fibrillation type: chronic Qualified Code(s): I48.2 - Chronic atrial fibrillation (5) Anemia of chronic disease Current Visit: Yes Status: Chronic Stable, Hgb 8.7>8.8>8.4 (6) Hyperkalemia Current Visit: Yes Status: Acute Improved K+ 5.5>4.6. Plan for Dialysis tomorrow. (7) Hyperphosphatemia Current Visit: Yes Status: Chronic Elevated at 6.9 yesterday. Will recheck tomorrow. Plan for Dialysis tomorrow. 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 Cardiovascular: chronic A fib. GI: Nutrition per dietary and GI prophylaxis per routine Heme: Warfarin being held for supratheraputic INR. ID: Continue antibiotic Renal: Dialysis tomorrow. Nephrology following patient. Skin: skin care to prevent pressure ulcers per nursing routine care Subjective Principal diagnosis: Sepsis Interval history: Patient returned to ICU for concerns of oxygen saturation decline and hypotension. Current oxygen saturation 100% on 3 LMP via nasal cannula. Most recent BP 105/69. Objective PUL Vital signs: Last Vital Signs Temp 97.4 F L 06/17/16 15:44 Pulse 75 06/17/16 15:44 Resp 20 06/17/16 15:44 BP 105/69 06/17/16 15:44 Pulse Ox 90 L 06/17/16 15:44 General appearance: no acute distress, asleep, other ENT: oropharynx moist Neck: supple Effort: mildly labored (with abdominal involvement. ) Auscultation: bilateral: rhonchi (coarse upper airway sounds) Cardiovascular: irregular rhythm Gastrointestinal: normoactive bowel sounds, soft, non-tender, non-distended Integumentary: other (areas of hyperpigmentation over the feet and legs and arms ; bandaged left upper extremity from the site of AV fistula removal.) Extremities: no edema, no clubbing, cool Musculoskeletal: no deformities non-focal exam (opens eyes to voice, nodding to questioning.) Results - Laboratory Findings CBC and BMP: 06/17/16 09:25 06/17/16 06:31 ABG ABG pH 7.31 pH Units (7.32-7.45) L 06/17/16 13:30 ABG pCO2 56 mmHg (35-45) H 06/17/16 13:30 ABG pO2 98 mmHg (85-104) 06/17/16 13:30 ABG O2 Saturation 97 % (95-98) 06/17/16 13:30 PT/INR, D-dimer PT 52.6 Seconds (9.4-12.1) H* 06/17/16 06:31 Abnormal lab findings: Abnormal lab results RBC 2.45 M/mcL (4.19-5.50) L 06/17/16 09:25 Hgb 8.4 g/dL (12.9-16.9) L 06/17/16 09:25 Hct 26.8 % (37.5-50.1) L 06/17/16 09:25 MCV 109.4 fL (83.0-100.0) H 06/17/16 09:25 MCH 34.3 pg (28.0-33.3) H 06/17/16 09:25 MCHC 31.3 g/dL (31.6-35.5) L 06/17/16 09:25 RDW 20.7 % (11.5-14.5) H 06/17/16 09:25 Plt Count 101 K/mcL (140-400) L 06/17/16 09:25 MPV 13.2 fL (9.4-12.4) H 06/17/16 09:25 Band Neutrophils % 10.0 % (0-4) H 06/15/16 03:17 Metamyelocytes % 2.0 % (0) H 06/15/16 03:17 Lymphocytes # 0.5 K/mcL (0.6-4.6) L 06/17/16 09:25 Nucleated RBCs/100 WBC 0.4 /100 WBC (0) H 06/17/16 09:25 Platelet Estimate Decreased (Normal) L 06/15/16 03:17 Large Platelets Present (Not Present) A 06/15/16 03:17 Immature Plt Fraction 18.3 % (1.1-6.1) H 06/16/16 04:20 Polychromasia 1+ (Not Present) A 06/15/16 03:17 Anisocytosis 1+ (Not Present) A 06/15/16 03:17 Target Cells 1+ (Not Present) A 06/15/16 03:17 Stomatocytes 1+ (Not Present) A 06/15/16 03:17 PT 52.6 Seconds (9.4-12.1) H* 06/17/16 06:31 INR 4.6 H* 06/17/16 06:31 ABG pH 7.31 pH Units (7.32-7.45) L 06/17/16 13:30 ABG pCO2 56 mmHg (35-45) H 06/17/16 13:30 ABG HCO3 28.2 mEQ/L (21-27) H 06/17/16 13:30 ABG Total CO2 29.9 mEq/L (20-26) H 06/17/16 13:30 Potassium 4.6 mEq/L (3.5-4.5) H 06/17/16 06:31 BUN 35 mg/dL (8-26) H D 06/17/16 06:31 Creatinine 3.90 mg/dL (0.72-1.25) H 06/17/16 06:31 Est GFR ( Amer) 18 (> 60) L 06/17/16 06:31 Est GFR (Non-Af Amer) 15 (> 60) L 06/17/16 06:31 POC Glucose 107 (58-89) H 06/17/16 16:37 Calcium 8.2 mg/dL (8.6-10.8) L 06/17/16 06:31 Phosphorus 6.9 mg/dL (2.3-4.7) H 06/16/16 04:20 Iron 51 mcg/dL (65-175) L 06/16/16 04:20 Transferrin 167 mg/dL (174-364) L 06/16/16 04:20 Ferritin 1381 ng/ml (22-275) H 06/16/16 04:20 Creatine Kinase 20 Units/L (30-200) L 06/16/16 11:25 Albumin 2.3 g/dL (3.5-5.0) L 06/16/16 04:20 PTH Intact 199.7 pg/ml (8.5-72.5) H 06/16/16 04:20 - Microbiology Findings Microbiology Findings: Microbiology, Last 48 Hours 06/15/16 10:38 Blood Culture - Preliminary Peripheral Venipuncture No growth. 06/15/16 14:55 Blood Culture - Preliminary Peripheral Venipuncture No growth. - Clinical Findings Intake & Output: Intake & Output 06/17/16 06/17/16 06/17/16 07:59 15:59 23:59 Weight 88.8 kg Consult Discharge Plan - Plan Referrals: Carl Cormier DO [Primary Care Provider] - (possible ecf placement ) <Nicole Dc - Last Filed: 06/17/16 20:40> Date of Encounter: 06/17/16 Objective PUL Vital signs: Last Vital Signs Temp 97.6 F 06/17/16 20:29 Pulse 77 06/17/16 17:26 Resp 20 06/17/16 17:26 BP 81/56 06/17/16 17:26 Pulse Ox 99 06/17/16 17:26 Results - Laboratory Findings CBC and BMP: 06/17/16 09:25 06/17/16 06:31 ABG ABG pH 7.31 pH Units (7.32-7.45) L 06/17/16 13:30 ABG pCO2 56 mmHg (35-45) H 06/17/16 13:30 ABG pO2 98 mmHg (85-104) 06/17/16 13:30 ABG O2 Saturation 97 % (95-98) 06/17/16 13:30 PT/INR, D-dimer PT 52.6 Seconds (9.4-12.1) H* 06/17/16 06:31 Abnormal lab findings: Abnormal lab results RBC 2.45 M/mcL (4.19-5.50) L 06/17/16 09:25 Hgb 8.4 g/dL (12.9-16.9) L 06/17/16 09:25 Hct 26.8 % (37.5-50.1) L 06/17/16 09:25 MCV 109.4 fL (83.0-100.0) H 06/17/16 09:25 MCH 34.3 pg (28.0-33.3) H 06/17/16 09:25 MCHC 31.3 g/dL (31.6-35.5) L 06/17/16 09:25 RDW 20.7 % (11.5-14.5) H 06/17/16 09:25 Plt Count 101 K/mcL (140-400) L 06/17/16 09:25 MPV 13.2 fL (9.4-12.4) H 06/17/16 09:25 Band Neutrophils % 10.0 % (0-4) H 06/15/16 03:17 Metamyelocytes % 2.0 % (0) H 06/15/16 03:17 Lymphocytes # 0.5 K/mcL (0.6-4.6) L 06/17/16 09:25 Nucleated RBCs/100 WBC 0.4 /100 WBC (0) H 06/17/16 09:25 Platelet Estimate Decreased (Normal) L 06/15/16 03:17 Large Platelets Present (Not Present) A 06/15/16 03:17 Immature Plt Fraction 18.3 % (1.1-6.1) H 06/16/16 04:20 Polychromasia 1+ (Not Present) A 06/15/16 03:17 Anisocytosis 1+ (Not Present) A 06/15/16 03:17 Target Cells 1+ (Not Present) A 06/15/16 03:17 Stomatocytes 1+ (Not Present) A 06/15/16 03:17 PT 52.6 Seconds (9.4-12.1) H* 06/17/16 06:31 INR 4.6 H* 06/17/16 06:31 ABG pH 7.31 pH Units (7.32-7.45) L 06/17/16 13:30 ABG pCO2 56 mmHg (35-45) H 06/17/16 13:30 ABG HCO3 28.2 mEQ/L (21-27) H 06/17/16 13:30 ABG Total CO2 29.9 mEq/L (20-26) H 06/17/16 13:30 Potassium 4.6 mEq/L (3.5-4.5) H 06/17/16 06:31 BUN 35 mg/dL (8-26) H D 06/17/16 06:31 Creatinine 3.90 mg/dL (0.72-1.25) H 06/17/16 06:31 Est GFR ( Amer) 18 (> 60) L 06/17/16 06:31 Est GFR (Non-Af Amer) 15 (> 60) L 06/17/16 06:31 POC Glucose 107 (58-89) H 06/17/16 16:37 Calcium 8.2 mg/dL (8.6-10.8) L 06/17/16 06:31 Phosphorus 6.9 mg/dL (2.3-4.7) H 06/16/16 04:20 Iron 51 mcg/dL (65-175) L 06/16/16 04:20 Transferrin 167 mg/dL (174-364) L 06/16/16 04:20 Ferritin 1381 ng/ml (22-275) H 06/16/16 04:20 Creatine Kinase 20 Units/L (30-200) L 06/16/16 11:25 Albumin 2.3 g/dL (3.5-5.0) L 06/16/16 04:20 PTH Intact 199.7 pg/ml (8.5-72.5) H 06/16/16 04:20 - Microbiology Findings Microbiology Findings: Microbiology, Last 48 Hours 06/15/16 10:38 Blood Culture - Preliminary Peripheral Venipuncture No growth. 06/15/16 14:55 Blood Culture - Preliminary Peripheral Venipuncture No growth. - Clinical Findings Intake & Output: Intake & Output 06/17/16 06/17/16 06/17/16 07:59 15:59 23:59 Weight 88.8 kg - Attending Attestation I examined this patient and my medical decision-making was reviewed with the BENCH CHEMIST/PA/Advanced Practice Nurse/Resident Physician. I agree with the documented findings, disposition and treatment plan as described except to the extent set forth below. Patient seen and examined. Labs, radiology, chart personally reviewed. 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 Will treat with Albumin, if no response, will start vasopressors. GI: Nutrition per dietary and GI prophylaxis per routine Heme: DVT prophylaxis per routine ID: Continue antibiotics and plan to de-escalation Renal; urine out put and renal funtion reviewed Endorcine: blood glucose is monitored Lines: all lines checked and no evidence of infections Skin: skin care to prevent pressure ulcers per nursing routine care Patient has multiple medical problems and his condition could deteriorate quickly.
[2016-06-17] MEDS ORDERED: DAPTOmycin 600 MG in 0.9 % Sodium Chloride 100 ML IVPB SCH (17:00)
[2016-06-18] MEDS: Hydrocortisone Sodium Succ 100 MG/2 ML VIAL IVP SCH ×3 (00:29→17:01)
[2016-06-18] MEDS: Ipratropium/Albuterol Neb 3 ML IH SCH ×4 (04:07→22:03)
[2016-06-18 05:57] LABS: INR 2.1; Prothrombin Time 22.7 Seconds (9.4-12.1)
[2016-06-18 05:58] LABS: Calcium 8.3 mg/dL (8.6-10.8); Potassium 5.2 mEq/L (3.5-4.5)
[2016-06-18 05:59] LABS: Basophils % 0.1 %; Eosinophils % 0.1 %; Hematocrit 26.9 % (37.5-50.1); Hemoglobin 8.4 g/dL (12.9-16.9); Immature Granulocytes % 1.6 % (0-4); Lymphocytes # 0.5 K/mcL (0.6-4.6); Lymphocytes % 6.7 %; Mean Corpuscular HGB Conc 31.2 g/dL (31.6-35.5); Mean Corpuscular Volume 108.9 fL (83.0-100.0); Monocytes # 0.5 K/mcL (0.0-1.3); Monocytes % 6.4 %; Neutrophils # 6.3 K/mcL (1.6-8.9); Nucleated Red Blood Cells 0.3 /100 WBC (0); Platelet Count 124 K/mcL (140-400); Red Blood Count 2.47 M/mcL (4.19-5.50); Segmented Neutrophils % 85.1 %
[2016-06-18] MEDS: Levothyroxine 25 MCG TABLET PO SCH ×2 (05:59→09:05)
--- NOTE | 2016-06-18 06:27 | Event Note ---
Date of Encounter: 06/17/16 Time of Encounter: 16:00 Please note this is a late entry from yesterday, 06/17/16. Throughout the day the patient was experiencing relative hypotension with MAPs approximately 65. The patient was seen and examined by myself and there is no acute change in mental status noted. Patient was also noted to have decreasing oxygen saturation. Physical exam was concerning for pulmonary edema with diffuse rales bilaterally. Chest x-ray also performed revealed signs of pulmonary edema. Given that the patient is end-stage renal disease and anuric, and the concern for fluid overload, IV fluids were not an option for blood pressure support. 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 I also spoke with the ICU team and transferred the patient to the ICU for closer monitoring and to allow for the rapid institution of pressors and or continuous renal replacement due to hypotension in the setting of pulmonary edema. Sign out was given to the ICU team, consult was placed for critical care in the ICU team assumed care upon transfer. We appreciate their input.
--- NOTE | 2016-06-18 08:07 | Pulmonology Progress Note ---
<DaoNicole M - Last Filed: 06/18/16 10:59> Date of Encounter: 06/18/16 Objective PUL Vital signs: Last Vital Signs Temp 96 F L 06/18/16 08:00 Pulse 76 06/18/16 09:00 Resp 18 06/18/16 09:00 BP 109/77 06/18/16 09:00 Pulse Ox 100 06/18/16 09:00 Results - Laboratory Findings CBC and BMP: 06/18/16 05:40 06/18/16 05:40 ABG ABG pH 7.31 pH Units (7.32-7.45) L 06/17/16 13:30 ABG pCO2 56 mmHg (35-45) H 06/17/16 13:30 ABG pO2 98 mmHg (85-104) 06/17/16 13:30 ABG O2 Saturation 97 % (95-98) 06/17/16 13:30 PT/INR, D-dimer PT 22.7 Seconds (9.4-12.1) H D 06/18/16 05:40 Abnormal lab findings: Abnormal lab results RBC 2.47 M/mcL (4.19-5.50) L 06/18/16 05:40 Hgb 8.4 g/dL (12.9-16.9) L 06/18/16 05:40 Hct 26.9 % (37.5-50.1) L 06/18/16 05:40 MCV 108.9 fL (83.0-100.0) H 06/18/16 05:40 MCH 34.0 pg (28.0-33.3) H 06/18/16 05:40 MCHC 31.2 g/dL (31.6-35.5) L 06/18/16 05:40 RDW 20.0 % (11.5-14.5) H 06/18/16 05:40 Plt Count 124 K/mcL (140-400) L 06/18/16 05:40 MPV 13.0 fL (9.4-12.4) H 06/18/16 05:40 Band Neutrophils % 10.0 % (0-4) H 06/15/16 03:17 Metamyelocytes % 2.0 % (0) H 06/15/16 03:17 Lymphocytes # 0.5 K/mcL (0.6-4.6) L 06/18/16 05:40 Nucleated RBCs/100 WBC 0.3 /100 WBC (0) H 06/18/16 05:40 Platelet Estimate Decreased (Normal) L 06/15/16 03:17 Large Platelets Present (Not Present) A 06/15/16 03:17 Immature Plt Fraction 18.3 % (1.1-6.1) H 06/16/16 04:20 Polychromasia 1+ (Not Present) A 06/15/16 03:17 Anisocytosis 1+ (Not Present) A 06/15/16 03:17 Target Cells 1+ (Not Present) A 06/15/16 03:17 Stomatocytes 1+ (Not Present) A 06/15/16 03:17 PT 22.7 Seconds (9.4-12.1) H D 06/18/16 05:40 ABG pH 7.31 pH Units (7.32-7.45) L 06/17/16 13:30 ABG pCO2 56 mmHg (35-45) H 06/17/16 13:30 ABG HCO3 28.2 mEQ/L (21-27) H 06/17/16 13:30 ABG Total CO2 29.9 mEq/L (20-26) H 06/17/16 13:30 Potassium 5.2 mEq/L (3.5-4.5) H 06/18/16 05:40 BUN 48 mg/dL (8-26) H D 06/18/16 05:40 Creatinine 4.82 mg/dL (0.72-1.25) H 06/18/16 05:40 Est GFR ( Amer) 14 (> 60) L 06/18/16 05:40 Est GFR (Non-Af Amer) 12 (> 60) L 06/18/16 05:40 Glucose 113 mg/dL (70-99) H 06/18/16 05:40 POC Glucose 122 (58-89) H 06/18/16 07:14 Calcium 8.3 mg/dL (8.6-10.8) L 06/18/16 05:40 Phosphorus 6.9 mg/dL (2.3-4.7) H 06/16/16 04:20 Iron 51 mcg/dL (65-175) L 06/16/16 04:20 Transferrin 167 mg/dL (174-364) L 06/16/16 04:20 Ferritin 1381 ng/ml (22-275) H 06/16/16 04:20 Creatine Kinase 20 Units/L (30-200) L 06/16/16 11:25 Albumin 2.3 g/dL (3.5-5.0) L 06/16/16 04:20 PTH Intact 199.7 pg/ml (8.5-72.5) H 06/16/16 04:20 - Microbiology Findings Microbiology Findings: Microbiology, Last 48 Hours 06/15/16 10:38 Blood Culture - Preliminary Peripheral Venipuncture No growth. 06/15/16 14:55 Blood Culture - Preliminary Peripheral Venipuncture No growth. - Clinical Findings Intake & Output: Intake & Output 06/17/16 06/18/16 06/18/16 23:59 07:59 15:59 Intake Total 0 / 0 0 / 0 Output Total 0 / 0 Balance 0 / 0 0 / 0 Consult Discharge Plan - Plan Referrals: Carl Cormier DO [Primary Care Provider] - (possible ecf placement ) - Attending Attestation I examined this patient and my medical decision-making was reviewed with the MEAT CUTTING BLOCK REPAIRER/PA/Advanced Practice Nurse/Resident Physician. I agree with the documented findings, disposition and treatment plan as described except to the extent set forth below. Patient seen and examined. Labs, radiology, chart personally reviewed. 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 After HD, will consider thoracentesis. Patient has multiple medical problems and he is weak, physical therapy. Cardiovascular: BP acceptable, I suspect his baseline is low. GI: Nutrition per dietary and GI prophylaxis per routine Heme: DVT prophylaxis per routine ID: Continue antibiotics and plan to de-escalation Renal; urine out put and renal funtion reviewed Endorcine: blood glucose is monitored Lines: all lines checked and no evidence of infections Skin: skin care to prevent pressure ulcers per nursing routine care I'm hoping we can transfer him back to the floor in next 1-2 days. <Leobardo Phipps - Last Filed: 06/18/16 12:48> Date of Encounter: 06/18/16 Time of Encounter: 07:40 Assessment and Plan (1) Sepsis associated hypotension Current Visit: Yes Status: Acute Patient transferred from [place], originally admitted for sepsis with hypotension. with MSSA Bacteremia, noted to have contaiminated dialysis fistula. Procedure note in records states fistula excised. In reviewing records it appears patient had a reaction to oxacillin. Patient has been continued on Daptomycin, request sent to [place] to retrieve culture results and sensitivity. Continue Midodrine 10mg TID. Consider albumin if BP declines. (2) MSSA (methicillin susceptible Staphylococcus aureus) infection Current Visit: Yes Status: Acute Blood cultures pending and previous culture results requested. See plan above. (3) ESRD (end stage renal disease) on dialysis Current Visit: Yes Status: Chronic Plan for dialysis today. In discussion with nephrology, if blood cultures negative they plan to have patient NPO at midnight and permacath placed the following day by IR. Then can be discharged to continue dialysis through [facility] in [place]. Dialysis on Mon-Wed-Fri If needed, could consider tunnelled catheter placement. (4) Atrial fibrillation Current Visit: Yes Status: Chronic Chronic A fib on Warfarin. INR 2.1 today. Warfarin switched to dosing per pharmacy. Qualifiers: Atrial fibrillation type: chronic Qualified Code(s): I48.2 - Chronic atrial fibrillation (5) Anemia of chronic disease Current Visit: Yes Status: Chronic Stable, Hgb 8.7>8.8>8.4>8.4 (6) Hyperkalemia Current Visit: Yes Status: Acute K+ 5.5>4.6>5.2 Plan for Dialysis today. 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 Cardiovascular: chronic A fib. GI: Nutrition per dietary (thin liquids) and GI prophylaxis per routine Heme: Warfarin per pharmacy ID: Continue antibiotic Renal: Dialysis today. Nephrology following patient. Skin: skin care to prevent pressure ulcers per nursing routine care Subjective Principal diagnosis: Sepsis Interval history: Patient continues to remove nasal cannula with oxygen saturation dropping as result, though quickly returns to adequate levels with 3L via NC. Did require ventimask for a short period overnight. Objective PUL Vital signs: Last Vital Signs Temp 96 F L 06/18/16 07:15 Pulse 82 06/18/16 06:00 Resp 14 06/18/16 06:00 BP 111/65 03/01/17 06:00 Pulse Ox 100 06/18/16 06:00 General appearance: no acute distress, alert Eyes: nonicteric ENT: oropharynx moist Neck: supple Effort: normal Auscultation: bilateral: rhonchi Cardiovascular: irregular rhythm Gastrointestinal: hypoactive bowel sounds, soft, non-tender, non-distended Integumentary: other (areas of hyperpigmentation over the feet and legs and arms ; bandaged left upper extremity from the site of AV fistula removal.) Extremities: no edema, no clubbing, pink and warm Musculoskeletal: no deformities non-focal exam mood appropriate, affect normal Results - Laboratory Findings CBC and BMP: 06/18/16 05:40 06/18/16 05:40 ABG ABG pH 7.31 pH Units (7.32-7.45) L 06/17/16 13:30 ABG pCO2 56 mmHg (35-45) H 06/17/16 13:30 ABG pO2 98 mmHg (85-104) 06/17/16 13:30 ABG O2 Saturation 97 % (95-98) 06/17/16 13:30 PT/INR, D-dimer PT 22.7 Seconds (9.4-12.1) H D 06/18/16 05:40 Abnormal lab findings: Abnormal lab results RBC 2.47 M/mcL (4.19-5.50) L 06/18/16 05:40 Hgb 8.4 g/dL (12.9-16.9) L 06/18/16 05:40 Hct 26.9 % (37.5-50.1) L 06/18/16 05:40 MCV 108.9 fL (83.0-100.0) H 06/18/16 05:40 MCH 34.0 pg (28.0-33.3) H 06/18/16 05:40 MCHC 31.2 g/dL (31.6-35.5) L 06/18/16 05:40 RDW 20.0 % (11.5-14.5) H 06/18/16 05:40 Plt Count 124 K/mcL (140-400) L 06/18/16 05:40 MPV 13.0 fL (9.4-12.4) H 06/18/16 05:40 Band Neutrophils % 10.0 % (0-4) H 06/15/16 03:17 Metamyelocytes % 2.0 % (0) H 06/15/16 03:17 Lymphocytes # 0.5 K/mcL (0.6-4.6) L 06/18/16 05:40 Nucleated RBCs/100 WBC 0.3 /100 WBC (0) H 06/18/16 05:40 Platelet Estimate Decreased (Normal) L 06/15/16 03:17 Large Platelets Present (Not Present) A 06/15/16 03:17 Immature Plt Fraction 18.3 % (1.1-6.1) H 06/16/16 04:20 Polychromasia 1+ (Not Present) A 06/15/16 03:17 Anisocytosis 1+ (Not Present) A 06/15/16 03:17 Target Cells 1+ (Not Present) A 06/15/16 03:17 Stomatocytes 1+ (Not Present) A 06/15/16 03:17 PT 22.7 Seconds (9.4-12.1) H D 06/18/16 05:40 ABG pH 7.31 pH Units (7.32-7.45) L 06/17/16 13:30 ABG pCO2 56 mmHg (35-45) H 06/17/16 13:30 ABG HCO3 28.2 mEQ/L (21-27) H 06/17/16 13:30 ABG Total CO2 29.9 mEq/L (20-26) H 06/17/16 13:30 Potassium 5.2 mEq/L (3.5-4.5) H 06/18/16 05:40 BUN 48 mg/dL (8-26) H D 06/18/16 05:40 Creatinine 4.82 mg/dL (0.72-1.25) H 06/18/16 05:40 Est GFR ( Amer) 14 (> 60) L 06/18/16 05:40 Est GFR (Non-Af Amer) 12 (> 60) L 06/18/16 05:40 Glucose 113 mg/dL (70-99) H 06/18/16 05:40 POC Glucose 122 (58-89) H 06/18/16 07:14 Calcium 8.3 mg/dL (8.6-10.8) L 06/18/16 05:40 Phosphorus 6.9 mg/dL (2.3-4.7) H 06/16/16 04:20 Iron 51 mcg/dL (65-175) L 06/16/16 04:20 Transferrin 167 mg/dL (174-364) L 06/16/16 04:20 Ferritin 1381 ng/ml (22-275) H 06/16/16 04:20 Creatine Kinase 20 Units/L (30-200) L 06/16/16 11:25 Albumin 2.3 g/dL (3.5-5.0) L 06/16/16 04:20 PTH Intact 199.7 pg/ml (8.5-72.5) H 06/16/16 04:20 - Microbiology Findings Microbiology Findings: Microbiology, Last 48 Hours 06/15/16 10:38 Blood Culture - Preliminary Peripheral Venipuncture No growth. 06/15/16 14:55 Blood Culture - Preliminary Peripheral Venipuncture No growth. - Clinical Findings Intake & Output: Intake & Output 06/17/16 06/18/16 06/18/16 23:59 07:59 15:59 Intake Total 0 / 0 0 / 0 Output Total 0 / 0 Balance 0 / 0 0 / 0
[2016-06-18] MEDS ORDERED: 0.9 % Sodium Chloride 250 ML IV PRN (08:42)
[2016-06-18] MEDS ORDERED: Albumin 25% 12.5gm/50mL 12.5 GM/50 ML IV.SOLN IVPB PRN (08:42)
[2016-06-18] MEDS ORDERED: predniSONE 10 MG TABLET PO SCH (09:00)
[2016-06-18] MEDS: Multivitamin Liquid 15 ML UDC PO SCH (09:03)
[2016-06-18] MEDS: Aspirin 81 MG TAB.CHEW PO SCH (09:04)
[2016-06-18] MEDS: Famotidine 20 MG TABLET PO SCH (09:05)
[2016-06-18] MEDS: *HR* Amiodarone 200 MG TABLET PO SCH (09:06)
[2016-06-18] MEDS: Silvasorb 44.4 ML TUBE TP SCH (09:09)
--- NOTE | 2016-06-18 10:51 | Nephrology Progress Note ---
Date of Encounter: 06/18/16 Time of Encounter: 08:45 - Assessment and Plan (1) ESRD (end stage renal disease) on dialysis Current Visit: Yes Status: Chronic Next HD is planned for today. Will cautiously plan for Hemodialysis if his hemodynamics support it; adding prn Albumin for intradialytic hypotension If his volume status needs further correction on (tomorrow), then would plan for UF tomorrow. Follow a renal protective strategy including renal diet. When his BCx return finalized, then he will need a Permacath. If he needs chronic Dapto, he may need a tunneled CVC vs a PICC Thank you. (2) Anemia of chronic disease Current Visit: Yes Status: Chronic Goal Hgb is 10-11 (3) MSSA (methicillin susceptible Staphylococcus aureus) infection Current Visit: Yes Status: Acute (4) Hyperphosphatemia Current Visit: Yes Status: Chronic Subjective Principal diagnosis: Sepsis Interval history: Pt was seen/examined. He did not affirm N/V/D. Transferred back to the ICU d/t hypoxemia and hypotension. He did not affirm or report any new major complaints. Objective - Vital Signs Vital signs: Vital Signs Temp Pulse Resp BP Pulse Ox 06/18/16 09:00 76 18 109/77 100 06/18/16 08:00 96 F L 70 18 120/63 100 06/18/16 07:15 96 F L 06/18/16 07:00 70 18 109/89 100 06/18/16 06:00 82 14 111/65 100 06/18/16 05:00 80 12 103/62 91 L 06/18/16 04:07 16 92 L 06/18/16 04:00 96.2 F L 83 16 106/85 97 06/18/16 03:00 88 18 106/79 93 L 06/18/16 02:00 89 16 94/50 91 L 06/18/16 01:00 80 18 102/64 94 L 06/18/16 00:00 96.9 F L 70 14 97/62 97 06/17/16 23:00 89 16 101/60 96 06/17/16 22:35 20 98 06/17/16 22:00 70 20 108/62 98 06/17/16 21:00 69 20 90/58 100 06/17/16 20:29 97.6 F 06/17/16 17:26 77 20 81/56 99 06/17/16 16:47 74 06/17/16 15:44 97.4 F L 75 20 105/69 90 L 06/17/16 12:58 97.5 F L 78 16 88/44 100 06/17/16 10:52 20 95 Intake and Output 06/17/16 06/18/16 06/18/16 23:59 07:59 15:59 Intake Total 0 / 0 0 / 0 Output Total 0 / 0 Balance 0 / 0 0 / 0 Intake: Oral 0 / 0 0 / 0 Output: Urine 0 / 0 Other: # Voids 0 # Bowel Movement Diapers 0 Blood Glucose* 122 122 - General Appearance Exam: General appearance: well-developed, chronically ill, fatigue, frail EENT: ATNC, PERRL, mucous membranes moist Neck: supple Respiratory: clear Cardiology: no edema, regular rate, irregular rhythm, normal S1, normal S2 - Dialysis Access Additional Comments: LUE dressing was dirty and with the dressing off was draining. There is a left temporary HD catheter (appears to be either the base of the IJ or in the subclavian vein). Gastrointestinal: normoactive bowel sounds, no tenderness, no guarding Additional Comments: LUE wound Neurologic: no focal deficit, no asterixis, disoriented Musculoskeletal: no deformities, no erythema, no cyanosis Psychiatric: mood/affect appropriate, cooperative - Lab 06/18/16 05:40 06/18/16 05:40 Most recent lab results ABG pH 7.31 pH Units (7.32-7.45) L 06/17/16 13:30 ABG pCO2 56 mmHg (35-45) H 06/17/16 13:30 ABG pO2 98 mmHg (85-104) 06/17/16 13:30 ABG HCO3 28.2 mEQ/L (21-27) H 06/17/16 13:30 ABG O2 Saturation 97 % (95-98) 06/17/16 13:30 Calcium 8.3 mg/dL (8.6-10.8) L 06/18/16 05:40 Phosphorus 6.9 mg/dL (2.3-4.7) H 06/16/16 04:20 Consult Discharge Plan - Plan Referrals: Carl Cormier DO [Primary Care Provider] - (possible ecf placement )
[2016-06-18] MEDS ORDERED: Albumin 25% 12.5gm/50mL 12.5 GM/50 ML IV.SOLN ONE (15:36)
[2016-06-18] MEDS ORDERED: 0.9 % Sodium Chloride 2,000 ML ONE (15:36)
[2016-06-19] MEDS: Hydrocortisone Sodium Succ 100 MG/2 ML VIAL IVP SCH (01:19)
[2016-06-19] MEDS: Ipratropium/Albuterol Neb 3 ML IH SCH ×4 (04:12→23:02)
[2016-06-19 04:28] LABS: INR 1.7; Prothrombin Time 18.4 Seconds (9.4-12.1)
[2016-06-19 04:55] LABS: Calcium 8.3 mg/dL (8.6-10.8); Potassium 4.2 mEq/L (3.5-4.5)
[2016-06-19] MEDS: Levothyroxine 25 MCG TABLET PO SCH (06:33)
--- NOTE | 2016-06-19 07:51 | Pulmonology Progress Note ---
<Leobardo Phipps - Last Filed: 06/19/16 14:30> Date of Encounter: 06/19/16 Time of Encounter: 07:48 Assessment and Plan (1) Sepsis associated hypotension Current Visit: Yes Status: Acute Patient transferred from [place], originally admitted for sepsis with hypotension. with MSSA Bacteremia, noted to have contaminated dialysis graph. Procedure note in records states fistula excised. In reviewing records it appears patient had a reaction to oxacillin. Continue Daptomycin (last day 07/16/16), request sent to [place] to retrieve culture results and sensitivity. Continued conversation to confirm antibiotic schedule base on previous infected graph. Monitor CK weekly while on daptomycin. Continue Midodrine 10mg TID. (2) MSSA (methicillin susceptible Staphylococcus aureus) infection Current Visit: Yes Status: Acute Blood cultures pending and previous culture results requested. Preliminary cultures show no growth. See plan above. (3) ESRD (end stage renal disease) on dialysis Current Visit: Yes Status: Chronic Patient to be NPO at midnight and permacath placed by IR tomorrow morning. Need to touch base with IR to see about tunnelled catheter placement for continued antibiotics. Then can be discharged to continue dialysis through [facility] in [place]. Dialysis on Mon-Thu-Thu, seen by Dr. Fisher. (4) Atrial fibrillation Current Visit: Yes Status: Chronic Chronic A fib on Warfarin. Controlled currently with metoprolol INR 1.7 today. Warfarin dosing per pharmacy. Qualifiers: Atrial fibrillation type: chronic Qualified Code(s): I48.2 - Chronic atrial fibrillation (5) Anemia of chronic disease Current Visit: Yes Status: Chronic Stable, Hgb 8.7>8.8>8.4>8.4 (6) Hyperkalemia Current Visit: Yes Status: Acute K+ 5.5>4.6>5.2>4.2 Plan for Dialysis . (7) COPD exacerbation Current Visit: Yes Status: Acute Acceptable oxygenation and ventilation, current saturation 100% on 3L via NC. Continue Duoneb. Stress dose hydrocortisone discontinued, transitioned to prednisone. Can began to wean steroids. (8) DVT prophylaxis Current Visit: Yes Status: Acute CALL CENTER OPERATIONS MANAGER: Patient follows commands Pulmonary: Acceptable oxygenation and ventilation, current saturation 100% on 3L via NC. Can likely begin to taper steroids. Cardiovascular: chronic A fib. GI: Nutrition per dietary (thin liquids) and GI prophylaxis per routine Heme: Warfarin per pharmacy ID: Continue antibiotic Renal: Dialysis M-W-F. Nephrology following patient. Skin: skin care to prevent pressure ulcers per nursing routine care Subjective Principal diagnosis: Sepsis Interval history: Patient continues appropriate oxygenation with 3L via NC. States he is feeling better today. Denies having an appetite, but states he will try to eat breakfast. Objective PUL Vital signs: Last Vital Signs Temp 97.0 F L 06/19/16 04:23 Pulse 89 06/19/16 06:00 Resp 16 06/19/16 06:00 BP 111/62 06/19/16 06:00 Pulse Ox 100 06/19/16 06:00 General appearance: no acute distress, alert Eyes: nonicteric ENT: oropharynx moist Neck: supple Effort: normal Cardiovascular: irregular rhythm (rate controlled) Gastrointestinal: normoactive bowel sounds, soft, non-tender, non-distended Integumentary: other (areas of hyperpigmentation over the feet and legs and arms ; bandaged left upper extremity from the site of AV fistula removal.) Extremities: no edema, no clubbing, pink and warm Musculoskeletal: no deformities Gait: normal posture non-focal exam mood appropriate, affect normal Results - Laboratory Findings CBC and BMP: 06/18/16 05:40 06/19/16 03:45 ABG ABG pH 7.31 pH Units (7.32-7.45) L 06/17/16 13:30 ABG pCO2 56 mmHg (35-45) H 06/17/16 13:30 ABG pO2 98 mmHg (85-104) 06/17/16 13:30 ABG O2 Saturation 97 % (95-98) 06/17/16 13:30 PT/INR, D-dimer PT 18.4 Seconds (9.4-12.1) H 06/19/16 03:45 Abnormal lab findings: Abnormal lab results RBC 2.47 M/mcL (4.19-5.50) L 06/18/16 05:40 Hgb 8.4 g/dL (12.9-16.9) L 06/18/16 05:40 Hct 26.9 % (37.5-50.1) L 06/18/16 05:40 MCV 108.9 fL (83.0-100.0) H 06/18/16 05:40 MCH 34.0 pg (28.0-33.3) H 06/18/16 05:40 MCHC 31.2 g/dL (31.6-35.5) L 06/18/16 05:40 RDW 20.0 % (11.5-14.5) H 06/18/16 05:40 Plt Count 124 K/mcL (140-400) L 06/18/16 05:40 MPV 13.0 fL (9.4-12.4) H 06/18/16 05:40 Band Neutrophils % 10.0 % (0-4) H 06/15/16 03:17 Metamyelocytes % 2.0 % (0) H 06/15/16 03:17 Lymphocytes # 0.5 K/mcL (0.6-4.6) L 06/18/16 05:40 Nucleated RBCs/100 WBC 0.3 /100 WBC (0) H 06/18/16 05:40 Platelet Estimate Decreased (Normal) L 06/15/16 03:17 Large Platelets Present (Not Present) A 06/15/16 03:17 Immature Plt Fraction 18.3 % (1.1-6.1) H 06/16/16 04:20 Polychromasia 1+ (Not Present) A 06/15/16 03:17 Anisocytosis 1+ (Not Present) A 06/15/16 03:17 Target Cells 1+ (Not Present) A 06/15/16 03:17 Stomatocytes 1+ (Not Present) A 06/15/16 03:17 PT 18.4 Seconds (9.4-12.1) H 06/19/16 03:45 ABG pH 7.31 pH Units (7.32-7.45) L 06/17/16 13:30 ABG pCO2 56 mmHg (35-45) H 06/17/16 13:30 ABG HCO3 28.2 mEQ/L (21-27) H 06/17/16 13:30 ABG Total CO2 29.9 mEq/L (20-26) H 06/17/16 13:30 BUN 28 mg/dL (8-26) H D 06/19/16 03:45 Creatinine 3.30 mg/dL (0.72-1.25) H 06/19/16 03:45 Est GFR ( Amer) 22 (> 60) L 06/19/16 03:45 Est GFR (Non-Af Amer) 18 (> 60) L 06/19/16 03:45 POC Glucose 103 (58-89) H 06/19/16 07:14 Calcium 8.3 mg/dL (8.6-10.8) L 06/19/16 03:45 Phosphorus 6.9 mg/dL (2.3-4.7) H 06/16/16 04:20 Iron 51 mcg/dL (65-175) L 06/16/16 04:20 Transferrin 167 mg/dL (174-364) L 06/16/16 04:20 Ferritin 1381 ng/ml (22-275) H 06/16/16 04:20 Creatine Kinase 20 Units/L (30-200) L 06/16/16 11:25 Albumin 2.3 g/dL (3.5-5.0) L 06/16/16 04:20 PTH Intact 199.7 pg/ml (8.5-72.5) H 06/16/16 04:20 - Microbiology Findings Microbiology Findings: Microbiology, Last 48 Hours 06/17/16 11:20 Wound Culture - Final Incision No growth. 06/15/16 10:38 Blood Culture - Preliminary Peripheral Venipuncture No growth. 06/15/16 14:55 Blood Culture - Preliminary Peripheral Venipuncture No growth. - Clinical Findings Intake & Output: Intake & Output 06/18/16 06/18/16 06/19/16 15:59 23:59 07:59 Intake Total 600 / 600 30 / 30 Output Total 0 / 0 6600 / 6600 0 / 0 Balance 600 / 600 -6570 / -6570 0 / 0 Weight 88.8 kg 88.2 kg Consult Discharge Plan - Plan Referrals: Carl Cormier DO [Primary Care Provider] - (possible ecf placement ) <Nicole Dc - Last Filed: 06/19/16 15:19> Date of Encounter: 06/19/16 Objective PUL Vital signs: Last Vital Signs Temp 96.7 F L 06/19/16 11:28 Pulse 86 06/19/16 14:00 Resp 20 06/19/16 14:00 BP 104/63 06/19/16 14:00 Pulse Ox 100 06/19/16 14:00 Results - Laboratory Findings CBC and BMP: 06/18/16 05:40 06/19/16 03:45 ABG ABG pH 7.31 pH Units (7.32-7.45) L 06/17/16 13:30 ABG pCO2 56 mmHg (35-45) H 06/17/16 13:30 ABG pO2 98 mmHg (85-104) 06/17/16 13:30 ABG O2 Saturation 97 % (95-98) 06/17/16 13:30 PT/INR, D-dimer PT 18.4 Seconds (9.4-12.1) H 06/19/16 03:45 Abnormal lab findings: Abnormal lab results RBC 2.47 M/mcL (4.19-5.50) L 06/18/16 05:40 Hgb 8.4 g/dL (12.9-16.9) L 06/18/16 05:40 Hct 26.9 % (37.5-50.1) L 06/18/16 05:40 MCV 108.9 fL (83.0-100.0) H 06/18/16 05:40 MCH 34.0 pg (28.0-33.3) H 06/18/16 05:40 MCHC 31.2 g/dL (31.6-35.5) L 06/18/16 05:40 RDW 20.0 % (11.5-14.5) H 06/18/16 05:40 Plt Count 124 K/mcL (140-400) L 06/18/16 05:40 MPV 13.0 fL (9.4-12.4) H 06/18/16 05:40 Band Neutrophils % 10.0 % (0-4) H 06/15/16 03:17 Metamyelocytes % 2.0 % (0) H 06/15/16 03:17 Lymphocytes # 0.5 K/mcL (0.6-4.6) L 06/18/16 05:40 Nucleated RBCs/100 WBC 0.3 /100 WBC (0) H 06/18/16 05:40 Platelet Estimate Decreased (Normal) L 06/15/16 03:17 Large Platelets Present (Not Present) A 06/15/16 03:17 Immature Plt Fraction 18.3 % (1.1-6.1) H 06/16/16 04:20 Polychromasia 1+ (Not Present) A 06/15/16 03:17 Anisocytosis 1+ (Not Present) A 06/15/16 03:17 Target Cells 1+ (Not Present) A 06/15/16 03:17 Stomatocytes 1+ (Not Present) A 06/15/16 03:17 PT 18.4 Seconds (9.4-12.1) H 06/19/16 03:45 ABG pH 7.31 pH Units (7.32-7.45) L 06/17/16 13:30 ABG pCO2 56 mmHg (35-45) H 06/17/16 13:30 ABG HCO3 28.2 mEQ/L (21-27) H 06/17/16 13:30 ABG Total CO2 29.9 mEq/L (20-26) H 06/17/16 13:30 BUN 28 mg/dL (8-26) H D 06/19/16 03:45 Creatinine 3.30 mg/dL (0.72-1.25) H 06/19/16 03:45 Est GFR ( Amer) 22 (> 60) L 06/19/16 03:45 Est GFR (Non-Af Amer) 18 (> 60) L 06/19/16 03:45 POC Glucose 104 (58-89) H 06/19/16 11:10 Calcium 8.3 mg/dL (8.6-10.8) L 06/19/16 03:45 Phosphorus 6.9 mg/dL (2.3-4.7) H 06/16/16 04:20 Iron 51 mcg/dL (65-175) L 06/16/16 04:20 Transferrin 167 mg/dL (174-364) L 06/16/16 04:20 Ferritin 1381 ng/ml (22-275) H 06/16/16 04:20 Creatine Kinase 20 Units/L (30-200) L 06/16/16 11:25 Albumin 2.3 g/dL (3.5-5.0) L 06/16/16 04:20 PTH Intact 199.7 pg/ml (8.5-72.5) H 06/16/16 04:20 - Microbiology Findings Microbiology Findings: Microbiology, Last 48 Hours 06/17/16 11:20 Wound Culture - Final Incision No growth. - Clinical Findings Intake & Output: Intake & Output 06/18/16 06/19/16 06/19/16 23:59 07:59 15:59 Intake Total Output Total 6600 / 6600 0 / 0 0 / 0 Balance -6570 / -6570 0 / 0 0 / 0 Weight 88.2 kg - Attending Attestation I examined this patient and my medical decision-making was reviewed with the CALL CENTER OPERATIONS MANAGER/PA/Advanced Practice Nurse/Resident Physician. I agree with the documented findings, disposition and treatment plan as described except to the extent set forth below. Patient seen and examined. Labs, radiology, chart personally reviewed. Agree with resident's history and physical, assessment, plan with following comments: CALL CENTER OPERATIONS MANAGER: Patient follows commands, Pulmonary: Acceptable oxygenation and ventilation Cardiovascular: stable GI: Nutrition per dietary and GI prophylaxis per routine Heme: DVT prophylaxis per routine ID: Continue antibiotics and plan to de-escalation. Needs at least 4 weeks Renal; Nephrology. follow-up Endorcine: blood glucose is monitored Lines: all lines checked and no evidence of infections Skin: skin care to prevent pressure ulcers per nursing routine care Patient can be transferred to the floor.
--- NOTE | 2016-06-19 08:46 | Nephrology Progress Note ---
Date of Encounter: 06/19/16 Time of Encounter: 08:44 - Assessment and Plan (1) ESRD (end stage renal disease) on dialysis Current Visit: Yes Status: Chronic Plan for HD tomorrow Once INR down and negative blood culture will need to be NPO for permacath placement Avoid nephrotoxins if possible (2) MSSA (methicillin susceptible Staphylococcus aureus) infection Current Visit: Yes Status: Acute per primary team (3) Anemia of chronic disease Current Visit: Yes Status: Chronic Goal 10-11 Hgb 8.4 on 06/18; no new hgb today Subjective Principal diagnosis: Sepsis Interval history: Patient seen and examined in ICU. Sitting up in bed, has ate 100% of his breakfast, answers questions appropriately. Objective - Vital Signs Vital signs: Vital Signs Temp Pulse Resp BP Pulse Ox 06/19/16 07:49 96.6 F L 06/19/16 06:00 89 16 111/62 100 06/19/16 05:00 86 20 106/68 100 06/19/16 04:23 97.0 F L 06/19/16 04:12 20 97 06/19/16 04:00 80 15 107/63 98 06/19/16 03:00 81 12 101/75 97 06/19/16 02:00 82 11 105/68 97 06/19/16 01:00 86 20 114/68 98 06/19/16 00:47 96.5 F L 06/19/16 00:00 82 20 115/74 98 06/18/16 23:00 76 20 113/68 100 06/18/16 22:03 20 93 L 06/18/16 22:00 81 18 117/63 100 06/18/16 21:00 79 20 103/60 94 L 06/18/16 20:00 96.4 F L 69 12 99/68 100 06/18/16 19:59 76 06/18/16 19:00 76 12 100/54 100 06/18/16 18:05 22 92/51 06/18/16 18:00 76 20 100/52 98 06/18/16 17:50 96/50 06/18/16 17:35 92/56 06/18/16 17:25 83/25 06/18/16 17:20 83/25 06/18/16 17:12 16 98 06/18/16 17:05 92/56 06/18/16 17:00 73 20 92/56 100 06/18/16 16:50 107/49 06/18/16 16:35 99/61 06/18/16 16:20 93/57 06/18/16 16:05 95/60 06/18/16 16:00 96.4 F L 81 16 95/60 96 06/18/16 15:50 91/57 06/18/16 15:35 91/53 06/18/16 15:20 91/56 06/18/16 15:05 105/59 06/18/16 15:00 71 20 105/59 99 06/18/16 14:50 113/96 06/18/16 14:35 96.7 F L 24 114/76 06/18/16 14:11 71 18 112/66 99 06/18/16 13:00 69 18 105/57 99 06/18/16 12:00 96.7 F L 68 18 98/53 94 L 06/18/16 11:20 96.7 F L 06/18/16 11:16 66 18 98/68 100 06/18/16 10:00 77 18 88/55 100 06/18/16 09:00 76 18 109/77 100 Intake and Output 06/18/16 06/19/16 06/19/16 23:59 07:59 15:59 Intake Total 30 / 30 Output Total 6600 / 6600 0 / 0 Balance -6570 / -6570 0 / 0 Intake: Oral 30 / 30 Output: Urine 0 / 0 Total Dialysis Output 3600 / 3600 Total Dialysis Output 3000 / 3000 Catheter 0 / 0 Other: Meal vanilla pudding Percent of Meal Consumed 100% Weight 88.2 kg Blood Glucose* 119 103 Hemodialysis Net Fluid 3600 Removed (mL) Patient Weight 06/19/16 23:59 Weight 88.2 kg - General Appearance General appearance: Present: well-developed, well-nourished EENT: Present: ATNC, mucous membranes moist, hearing intact, vision intact Neck: Present: supple Respiratory: Present: clear Cardiology: Present: no edema, normal S1, normal S2 Dialysis Vascular Access: Venous Catheter Gastrointestinal: Present: no tenderness, no guarding Integumentary: Present: warm and dry Neurologic: Present: alert and oriented x3 Psychiatric: Present: mood/affect appropriate, cooperative - Lab 06/18/16 05:40 06/19/16 03:45 Most recent lab results ABG pH 7.31 pH Units (7.32-7.45) L 06/17/16 13:30 ABG pCO2 56 mmHg (35-45) H 06/17/16 13:30 ABG pO2 98 mmHg (85-104) 06/17/16 13:30 ABG HCO3 28.2 mEQ/L (21-27) H 06/17/16 13:30 ABG O2 Saturation 97 % (95-98) 06/17/16 13:30 Calcium 8.3 mg/dL (8.6-10.8) L 06/19/16 03:45 Phosphorus 6.9 mg/dL (2.3-4.7) H 06/16/16 04:20 Consult Discharge Plan - Plan Referrals: Carl Cormier DO [Primary Care Provider] - (possible ecf placement )
[2016-06-19] MEDS ORDERED: predniSONE 10 MG TABLET PO SCH ×2 (09:00→13:20)
[2016-06-19] MEDS: Famotidine 20 MG TABLET PO SCH (09:14)
[2016-06-19] MEDS: *HR* Amiodarone 200 MG TABLET PO SCH (09:14)
[2016-06-19] MEDS: Multivitamin Liquid 15 ML UDC PO SCH (09:14)
[2016-06-19] MEDS: Aspirin 81 MG TAB.CHEW PO SCH (09:14)
[2016-06-19] MEDS: Silvasorb 44.4 ML TUBE TP SCH (09:16)
[2016-06-19] MEDS ORDERED: Acetaminophen 325 MG TABLET PO PRN (14:13)
[2016-06-19] MEDS ORDERED: traZODone 50 MG TABLET PO PRN (14:13)
[2016-06-19] MEDS ORDERED: Naloxone 0.4 MG/ML INJ IVP PRN (14:13)
[2016-06-19] MEDS ORDERED: Albumin 25% 12.5gm/50mL 12.5 GM/50 ML IV.SOLN IVPB PRN (14:13)
--- NOTE | 2016-06-19 14:51 | Palliative Progress Note ---
Date of Encounter: 06/19/16 Time of Encounter: 14:45 - Assessment and plan (1) Decreased oral intake Current Visit: Yes Status: Acute Assessment and plan: Barium swallow results noted and pt downgraded to honey thick liquids. Ate well for breakfast this am, pt didn't want lunch. Will continue to monitor. I discussed concern of aspiration with family, that with weakened state and prolonged hospital stay, he remains at risk and it is unknown if his dysphagia will improve. When asked if pt had ever expressed his wishes re: artificial nutrition, they said he has specifically stated he did not desire a feeding tube and they would honor his wishes. Will follow. (2) Counseling regarding advanced care planning and goals of care Current Visit: Yes Status: Acute (3) AV fistula infection Current Visit: Yes Status: Acute Qualifiers: Encounter type: subsequent encounter Qualified Code(s): T82.7XXD - Infection and inflammatory reaction due to other cardiac and vascular devices, implants and grafts, subsequent encounter (4) ESRD (end stage renal disease) on dialysis Current Visit: Yes Status: Chronic (5) Supratherapeutic INR Current Visit: Yes Status: Acute - Time Spent With Patient Total time spent is greater than 50% in coordination of care (as documented) at patient's floor/unit and/or counseling patient: 25 - 35 minutes - Subjective Interval history: Patient awake and alert. Pleasantly confused. Denies in pain and appears in no distress. and 2 daughters at bedside. Scheduled for Permacath placement tomorrow at 0900 and will have dialysis afterward. - Constitutional Vitals: Abnormal lab results RBC 2.47 M/mcL (4.19-5.50) L 06/18/16 05:40 Hgb 8.4 g/dL (12.9-16.9) L 06/18/16 05:40 Hct 26.9 % (37.5-50.1) L 06/18/16 05:40 MCV 108.9 fL (83.0-100.0) H 06/18/16 05:40 MCH 34.0 pg (28.0-33.3) H 06/18/16 05:40 MCHC 31.2 g/dL (31.6-35.5) L 06/18/16 05:40 RDW 20.0 % (11.5-14.5) H 06/18/16 05:40 Plt Count 124 K/mcL (140-400) L 06/18/16 05:40 MPV 13.0 fL (9.4-12.4) H 06/18/16 05:40 Band Neutrophils % 10.0 % (0-4) H 06/15/16 03:17 Metamyelocytes % 2.0 % (0) H 06/15/16 03:17 Lymphocytes # 0.5 K/mcL (0.6-4.6) L 06/18/16 05:40 Nucleated RBCs/100 WBC 0.3 /100 WBC (0) H 06/18/16 05:40 Platelet Estimate Decreased (Normal) L 06/15/16 03:17 Large Platelets Present (Not Present) A 06/15/16 03:17 Immature Plt Fraction 18.3 % (1.1-6.1) H 06/16/16 04:20 Polychromasia 1+ (Not Present) A 06/15/16 03:17 Anisocytosis 1+ (Not Present) A 06/15/16 03:17 Target Cells 1+ (Not Present) A 06/15/16 03:17 Stomatocytes 1+ (Not Present) A 06/15/16 03:17 PT 18.4 Seconds (9.4-12.1) H 06/19/16 03:45 ABG pH 7.31 pH Units (7.32-7.45) L 06/17/16 13:30 ABG pCO2 56 mmHg (35-45) H 06/17/16 13:30 ABG HCO3 28.2 mEQ/L (21-27) H 06/17/16 13:30 ABG Total CO2 29.9 mEq/L (20-26) H 06/17/16 13:30 BUN 28 mg/dL (8-26) H D 06/19/16 03:45 Creatinine 3.30 mg/dL (0.72-1.25) H 06/19/16 03:45 Est GFR ( Amer) 22 (> 60) L 06/19/16 03:45 Est GFR (Non-Af Amer) 18 (> 60) L 06/19/16 03:45 POC Glucose 104 (58-89) H 06/19/16 11:10 Calcium 8.3 mg/dL (8.6-10.8) L 06/19/16 03:45 Phosphorus 6.9 mg/dL (2.3-4.7) H 06/16/16 04:20 Iron 51 mcg/dL (65-175) L 06/16/16 04:20 Transferrin 167 mg/dL (174-364) L 06/16/16 04:20 Ferritin 1381 ng/ml (22-275) H 06/16/16 04:20 Creatine Kinase 20 Units/L (30-200) L 06/16/16 11:25 Albumin 2.3 g/dL (3.5-5.0) L 06/16/16 04:20 PTH Intact 199.7 pg/ml (8.5-72.5) H 06/16/16 04:20 General appearance: Present: no acute distress - Respiratory Respiratory exam: Present: decreased breath sounds, CTAB Additional comments: Faint expiratory wheezes anterior lung white. - Cardiovascular Cardiovascular exam: Present: irregular rhythm - GI/Abdominal GI/Abdominal exam: Present: normal bowel sounds, soft - Extremities Exam Extremities exam: Present: normal capillary refill, normal inspection Additional comments: 1+ edema bilateral lower extremities - Neurological Exam Neurological exam: Present: alert Additional comments: pleasantly confused - Skin Skin exam: Present: dry, pallor, warm Palliative Quality Palliative Quality: Screen for Code Status: Yes, Screen for Goals of Care: Yes, Screen for Pain: Yes, If Pain Regimen Started, Initiate Bowel Regimen: NA, Screen for Nausea/Vomitting: NA Code Status: 06/14/16 15:57 Resuscitation Status: Active [RES] Routine Comment: Resuscitation Status: Full Code - Labs CBC & Chem 7: 06/18/16 05:40 06/19/16 03:45 Labs: Laboratory Results - last 24 hr 06/18/16 06/18/16 06/19/16 15:53 20:10 03:45 PT 18.4 H INR 1.7 Sodium Potassium Chloride Carbon Dioxide BUN Creatinine Est GFR ( Amer) Est GFR (Non-Af Amer) BUN/Creatinine Ratio Glucose POC Glucose 126 H 119 H Calculated Osmolality Calcium 06/19/16 06/19/16 06/19/16 03:45 07:14 11:10 PT INR Sodium 139 Potassium 4.2 D Chloride 101 Carbon Dioxide 28 BUN 28 H D Creatinine 3.30 H Est GFR ( Amer) 22 L Est GFR (Non-Af Amer) 18 L BUN/Creatinine Ratio 8 Glucose 94 POC Glucose 103 H 104 H Calculated Osmolality 293 Calcium 8.3 L - Impressions Impressions Chest X-Ray 06/17/16 10:49 IMPRESSION: 1. Airspace and interstitial opacities bilaterally which either reflect pulmonary edema or multifocal pneumonia. 2. Small bilateral pleural effusions. 3. Left central venous catheter with the tip overlying the distal left brachiocephalic vein. D/ / 06/17/2016 13:08:07 Erin Henriquez MD / Adriane Davies Interpreting Provider: Erin Henriquez MD - ABG Interpretation ABG results: ABG ABG pH 7.31 pH Units (7.32-7.45) L 06/17/16 13:30 ABG pCO2 56 mmHg (35-45) H 06/17/16 13:30 ABG pO2 98 mmHg (85-104) 06/17/16 13:30 ABG O2 Saturation 97 % (95-98) 06/17/16 13:30 PT/INR, D-dimer PT 18.4 Seconds (9.4-12.1) H 06/19/16 03:45 Consult Discharge Plan - Plan Referrals: Carl Cormier DO [Primary Care Provider] - (possible ecf placement )
[2016-06-19] MEDS: DAPTOmycin 600 MG in 0.9 % Sodium Chloride 100 ML IVPB SCH (17:08)
[2016-06-20 03:00] LABS: Eosinophils % 0.3 %; Hematocrit 26.4 % (37.5-50.1); Immature Granulocytes % 1.2 % (0-4); Lymphocytes # 0.4 K/mcL (0.6-4.6); Mean Corpuscular HGB Conc 30.3 g/dL (31.6-35.5); Mean Corpuscular Hemoglobin 33.6 pg (28.0-33.3); Mean Corpuscular Volume 110.9 fL (83.0-100.0); Mean Platelet Volume 11.7 fL (9.4-12.4); Monocytes % 13.7 %; Neutrophils # 5.8 K/mcL (1.6-8.9); Nucleated Red Blood Cells 0.3 /100 WBC (0); Platelet Count 140 K/mcL (140-400); Red Blood Count 2.38 M/mcL (4.19-5.50); Red Cell Distribution Width 20.1 % (11.5-14.5); Segmented Neutrophils % 78.8 %
[2016-06-20 03:06] LABS: INR 1.6; Prothrombin Time 17.7 Seconds (9.4-12.1)
[2016-06-20 03:12] LABS: Calcium 8.4 mg/dL (8.6-10.8); Potassium 4.3 mEq/L (3.5-4.5)
[2016-06-20 03:44] LABS: Anisocytosis 2+ (Not Present); Macrocytosis Present (Not Present); Platelet Estimate Normal (Normal)
[2016-06-20] MEDS: Levothyroxine 25 MCG TABLET PO SCH (03:54)
[2016-06-20] MEDS: Ipratropium/Albuterol Neb 3 ML IH SCH ×4 (04:15→22:53)
[2016-06-20] MEDS ORDERED: *HR* Heparin 10,000 UNIT/10 ML VIAL IV PRN (07:54)
[2016-06-20] MEDS ORDERED: Albumin 25% 12.5gm/50mL 12.5 GM/50 ML IV.SOLN IVPB PRN (07:54)
[2016-06-20] MEDS ORDERED: 0.9 % Sodium Chloride 250 ML IV PRN (07:54)
[2016-06-20] MEDS ORDERED: 0.9 % Sodium Chloride 1,000 ML PRIME SCH (08:00)
[2016-06-20] MEDS ORDERED: 0.9 % Sodium Chloride 2,000 ML ONE (08:09)
--- NOTE | 2016-06-20 08:18 | Pulmonology Progress Note ---
<Leobardo Phipps - Last Filed: 06/20/16 15:39> Date of Encounter: 06/20/16 Time of Encounter: 07:35 Assessment and Plan (1) Sepsis associated hypotension Current Visit: Yes Status: Acute Patient transferred from [place], originally admitted for sepsis with hypotension. with MSSA Bacteremia, noted to have contaminated dialysis graph. Procedure note in records states fistula excised. In reviewing records it appears patient had a reaction to oxacillin. Continue Daptomycin (last day 07/16/16), request sent to [place] to retrieve culture results and sensitivity. Continued conversation to confirm antibiotic schedule base on previous infected graph. Monitor CK weekly while on daptomycin. Continue Midodrine 10mg TID. (2) MSSA (methicillin susceptible Staphylococcus aureus) infection Current Visit: Yes Status: Acute Blood cultures pending and previous culture results requested. Preliminary cultures show no growth. See plan above. (3) ESRD (end stage renal disease) on dialysis Current Visit: Yes Status: Chronic Patient to have permacath and tunnelled catheter placed by IR today. Then can be discharged to continue dialysis through [facility] in [place]. Dialysis on Thu-Thu-Thu, seen by Dr. Fisher. (4) Atrial fibrillation Current Visit: Yes Status: Chronic Chronic A fib on Warfarin. Controlled currently with metoprolol INR 1.6 today. Warfarin dosing per pharmacy. Qualifiers: Atrial fibrillation type: chronic Qualified Code(s): I48.2 - Chronic atrial fibrillation (5) Anemia of chronic disease Current Visit: Yes Status: Chronic Stable, Hgb 8.7>8.4>8.0 (6) Hyperkalemia Current Visit: Yes Status: Acute K+ 5.5>4.2>4.3 Plan for Dialysis --. (7) COPD exacerbation Current Visit: Yes Status: Acute Acceptable oxygenation and ventilation, current saturation 100% on 3L via NC. Continue Duoneb. Stress dose hydrocortisone discontinued, transitioned to prednisone. Can began to wean steroids. 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 Can likely taper steroids. Cardiovascular: chronic A fib. GI: Nutrition per dietary (thin liquids-NPO currently for permacath placement) and GI prophylaxis per routine Heme: Warfarin per pharmacy ID: Continue antibiotic Renal: Dialysis -W-. Nephrology following patient. Skin: skin care to prevent pressure ulcers per nursing routine care Subjective Principal diagnosis: Sepsis Interval history: Patient continues appropriate oxygenation with 3L via NC. He denies any complaints this morning. Dialysis is planned for when patient returns from IR placement of permacath and tunnelled catheter. Objective PUL Vital signs: Last Vital Signs Temp 97.1 F L 06/20/16 05:10 Pulse 92 06/20/16 08:08 Resp 19 06/20/16 08:08 BP 99/63 06/20/16 08:08 Pulse Ox 100 06/20/16 08:08 General appearance: no acute distress Eyes: nonicteric ENT: oropharynx moist Neck: supple Effort: normal, other (upper airway congestion) Cardiovascular: irregular rhythm Gastrointestinal: normoactive bowel sounds, soft, non-tender, non-distended Integumentary: other (reas of hyperpigmentation over the feet and legs and arms) Extremities: no edema, no clubbing, pink and warm (multiple areas of discoloration, unchanged during admission.) Musculoskeletal: no deformities normal mental status, non-focal exam mood appropriate, affect normal Results - Laboratory Findings CBC and BMP: 06/20/16 02:55 06/20/16 02:55 ABG ABG pH 7.31 pH Units (7.32-7.45) L 06/17/16 13:30 ABG pCO2 56 mmHg (35-45) H 06/17/16 13:30 ABG pO2 98 mmHg (85-104) 06/17/16 13:30 ABG O2 Saturation 97 % (95-98) 06/17/16 13:30 PT/INR, D-dimer PT 17.7 Seconds (9.4-12.1) H 06/20/16 02:55 Abnormal lab findings: Abnormal lab results RBC 2.38 M/mcL (4.19-5.50) L 06/20/16 02:55 Hgb 8.0 g/dL (12.9-16.9) L 06/20/16 02:55 Hct 26.4 % (37.5-50.1) L 06/20/16 02:55 MCV 110.9 fL (83.0-100.0) H 06/20/16 02:55 MCH 33.6 pg (28.0-33.3) H 06/20/16 02:55 MCHC 30.3 g/dL (31.6-35.5) L 06/20/16 02:55 RDW 20.1 % (11.5-14.5) H 06/20/16 02:55 Band Neutrophils % 10.0 % (0-4) H 06/15/16 03:17 Metamyelocytes % 2.0 % (0) H 06/15/16 03:17 Lymphocytes # 0.4 K/mcL (0.6-4.6) L 06/20/16 02:55 Nucleated RBCs/100 WBC 0.3 /100 WBC (0) H 06/20/16 02:55 Large Platelets Present (Not Present) A 06/15/16 03:17 Immature Plt Fraction 18.3 % (1.1-6.1) H 06/16/16 04:20 Polychromasia 1+ (Not Present) A 06/15/16 03:17 Anisocytosis 2+ (Not Present) A 06/20/16 02:55 Macrocytosis Present (Not Present) A 06/20/16 02:55 Target Cells 1+ (Not Present) A 06/15/16 03:17 Stomatocytes 1+ (Not Present) A 06/15/16 03:17 PT 17.7 Seconds (9.4-12.1) H 06/20/16 02:55 ABG pH 7.31 pH Units (7.32-7.45) L 06/17/16 13:30 ABG pCO2 56 mmHg (35-45) H 06/17/16 13:30 ABG HCO3 28.2 mEQ/L (21-27) H 06/17/16 13:30 ABG Total CO2 29.9 mEq/L (20-26) H 06/17/16 13:30 BUN 40 mg/dL (8-26) H D 06/20/16 02:55 Creatinine 4.37 mg/dL (0.72-1.25) H 06/20/16 02:55 Est GFR ( Amer) 16 (> 60) L 06/20/16 02:55 Est GFR (Non-Af Amer) 13 (> 60) L 06/20/16 02:55 Glucose 102 mg/dL (70-99) H 06/20/16 02:55 POC Glucose 103 (58-89) H 06/20/16 07:50 Calculated Osmolality 302 (280-300) H 06/20/16 02:55 Calcium 8.4 mg/dL (8.6-10.8) L 06/20/16 02:55 Phosphorus 6.9 mg/dL (2.3-4.7) H 06/16/16 04:20 Iron 51 mcg/dL (65-175) L 06/16/16 04:20 Transferrin 167 mg/dL (174-364) L 06/16/16 04:20 Ferritin 1381 ng/ml (22-275) H 06/16/16 04:20 Creatine Kinase 20 Units/L (30-200) L 06/16/16 11:25 Albumin 2.3 g/dL (3.5-5.0) L 06/16/16 04:20 PTH Intact 199.7 pg/ml (8.5-72.5) H 06/16/16 04:20 - Microbiology Findings Microbiology Findings: Microbiology, Last 48 Hours 06/17/16 11:20 Wound Culture - Final Incision No growth. - Clinical Findings Intake & Output: Intake & Output 06/19/16 06/20/16 06/20/16 23:59 07:59 15:59 Intake Total 50 / 50 Balance 50 / 50 Weight 87.543 kg Consult Discharge Plan - Plan Referrals: Carl Cormier DO [Primary Care Provider] - (possible ecf placement ) Prescriptions: Daptomycin 600 mg IV Q48H #13 vial <Nicole Dc - Last Filed: 06/20/16 16:13> Objective PUL Vital signs: Last Vital Signs Temp 97.1 F L 06/20/16 12:05 Pulse 80 06/20/16 14:00 Resp 22 06/20/16 15:35 BP 89/56 06/20/16 15:35 Pulse Ox 100 06/20/16 14:00 Results - Laboratory Findings CBC and BMP: 06/20/16 02:55 06/20/16 02:55 ABG ABG pH 7.31 pH Units (7.32-7.45) L 06/17/16 13:30 ABG pCO2 56 mmHg (35-45) H 06/17/16 13:30 ABG pO2 98 mmHg (85-104) 06/17/16 13:30 ABG O2 Saturation 97 % (95-98) 06/17/16 13:30 PT/INR, D-dimer PT 17.7 Seconds (9.4-12.1) H 06/20/16 02:55 Abnormal lab findings: Abnormal lab results RBC 2.38 M/mcL (4.19-5.50) L 06/20/16 02:55 Hgb 8.0 g/dL (12.9-16.9) L 06/20/16 02:55 Hct 26.4 % (37.5-50.1) L 06/20/16 02:55 MCV 110.9 fL (83.0-100.0) H 06/20/16 02:55 MCH 33.6 pg (28.0-33.3) H 06/20/16 02:55 MCHC 30.3 g/dL (31.6-35.5) L 06/20/16 02:55 RDW 20.1 % (11.5-14.5) H 06/20/16 02:55 Band Neutrophils % 10.0 % (0-4) H 06/15/16 03:17 Metamyelocytes % 2.0 % (0) H 06/15/16 03:17 Lymphocytes # 0.4 K/mcL (0.6-4.6) L 06/20/16 02:55 Nucleated RBCs/100 WBC 0.3 /100 WBC (0) H 06/20/16 02:55 Large Platelets Present (Not Present) A 06/15/16 03:17 Immature Plt Fraction 18.3 % (1.1-6.1) H 06/16/16 04:20 Polychromasia 1+ (Not Present) A 06/15/16 03:17 Anisocytosis 2+ (Not Present) A 06/20/16 02:55 Macrocytosis Present (Not Present) A 06/20/16 02:55 Target Cells 1+ (Not Present) A 06/15/16 03:17 Stomatocytes 1+ (Not Present) A 06/15/16 03:17 PT 17.7 Seconds (9.4-12.1) H 06/20/16 02:55 ABG pH 7.31 pH Units (7.32-7.45) L 06/17/16 13:30 ABG pCO2 56 mmHg (35-45) H 06/17/16 13:30 ABG HCO3 28.2 mEQ/L (21-27) H 06/17/16 13:30 ABG Total CO2 29.9 mEq/L (20-26) H 06/17/16 13:30 BUN 40 mg/dL (8-26) H D 06/20/16 02:55 Creatinine 4.37 mg/dL (0.72-1.25) H 06/20/16 02:55 Est GFR ( Amer) 16 (> 60) L 06/20/16 02:55 Est GFR (Non-Af Amer) 13 (> 60) L 06/20/16 02:55 Glucose 102 mg/dL (70-99) H 06/20/16 02:55 POC Glucose 91 (58-89) H 06/20/16 15:34 Calculated Osmolality 302 (280-300) H 06/20/16 02:55 Calcium 8.4 mg/dL (8.6-10.8) L 06/20/16 02:55 Phosphorus 6.9 mg/dL (2.3-4.7) H 06/16/16 04:20 Iron 51 mcg/dL (65-175) L 06/16/16 04:20 Transferrin 167 mg/dL (174-364) L 06/16/16 04:20 Ferritin 1381 ng/ml (22-275) H 06/16/16 04:20 Creatine Kinase 20 Units/L (30-200) L 06/16/16 11:25 Albumin 2.3 g/dL (3.5-5.0) L 06/16/16 04:20 PTH Intact 199.7 pg/ml (8.5-72.5) H 06/16/16 04:20 - Microbiology Findings Microbiology Findings: Microbiology, Last 48 Hours 06/15/16 14:55 Blood Culture - Final Peripheral Venipuncture No growth. 06/17/16 11:20 Wound Culture - Final Incision No growth. - Clinical Findings Intake & Output: Intake & Output 06/20/16 06/20/16 06/20/16 07:59 15:59 23:59 Intake Total 50 / 50 600 / 600 Output Total 3600 / 3600 Balance 50 / 50 -3000 / -3000 Weight 87.543 kg 87.543 kg - Attending Attestation I examined this patient and my medical decision-making was reviewed with the WOUND CARE RN/PA/Advanced Practice Nurse/Resident Physician. I agree with the documented findings, disposition and treatment plan as described except to the extent set forth below. Patient seen and examined. Labs, radiology, chart personally reviewed. 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 Renal; HD today and patient was transferred to floor. Endorcine: blood glucose is monitored Lines: all lines checked and no evidence of infections Skin: skin care to prevent pressure ulcers per nursing routine care
--- NOTE | 2016-06-20 09:42 | Palliative Progress Note ---
Date of Encounter: 06/20/16 Time of Encounter: 09:40 - Assessment and plan (1) Decreased oral intake Current Visit: Yes Status: Acute Assessment and plan: Continue to encourage oral intake and modified diet with honey thick liquids. Monitor (2) Counseling regarding advanced care planning and goals of care Current Visit: Yes Status: Acute Assessment and plan: Patient and 2 daughters at bedside. They are aware of plan for permacath and intermediate card tender line for IV antibiotics. D/C plan is for [facility]. Discussed code status once again, and all family desire full code status to continue, however, states he would not want intermediate card tender life support. Palliative will follow at a distance. (3) AV fistula infection Current Visit: Yes Status: Acute Qualifiers: Encounter type: subsequent encounter Qualified Code(s): T82.7XXD - Infection and inflammatory reaction due to other cardiac and vascular devices, implants and grafts, subsequent encounter (4) ESRD (end stage renal disease) on dialysis Current Visit: Yes Status: Chronic (5) Supratherapeutic INR Current Visit: Yes Status: Acute - Time Spent With Patient Total time spent is greater than 50% in coordination of care (as documented) at patient's floor/unit and/or counseling patient: 25 - 35 minutes - Subjective Interval history: Patient awake and alert. Will be headed down to IR soon for permacath and tunneled line for antibiotics. Denies any pain or discomfort. Denies dyspnea. - Constitutional Vitals: Abnormal lab results RBC 2.38 M/mcL (4.19-5.50) L 06/20/16 02:55 Hgb 8.0 g/dL (12.9-16.9) L 06/20/16 02:55 Hct 26.4 % (37.5-50.1) L 06/20/16 02:55 MCV 110.9 fL (83.0-100.0) H 06/20/16 02:55 MCH 33.6 pg (28.0-33.3) H 06/20/16 02:55 MCHC 30.3 g/dL (31.6-35.5) L 06/20/16 02:55 RDW 20.1 % (11.5-14.5) H 06/20/16 02:55 Band Neutrophils % 10.0 % (0-4) H 06/15/16 03:17 Metamyelocytes % 2.0 % (0) H 06/15/16 03:17 Lymphocytes # 0.4 K/mcL (0.6-4.6) L 06/20/16 02:55 Nucleated RBCs/100 WBC 0.3 /100 WBC (0) H 06/20/16 02:55 Large Platelets Present (Not Present) A 06/15/16 03:17 Immature Plt Fraction 18.3 % (1.1-6.1) H 06/16/16 04:20 Polychromasia 1+ (Not Present) A 06/15/16 03:17 Anisocytosis 2+ (Not Present) A 06/20/16 02:55 Macrocytosis Present (Not Present) A 06/20/16 02:55 Target Cells 1+ (Not Present) A 06/15/16 03:17 Stomatocytes 1+ (Not Present) A 06/15/16 03:17 PT 17.7 Seconds (9.4-12.1) H 06/20/16 02:55 ABG pH 7.31 pH Units (7.32-7.45) L 06/17/16 13:30 ABG pCO2 56 mmHg (35-45) H 06/17/16 13:30 ABG HCO3 28.2 mEQ/L (21-27) H 06/17/16 13:30 ABG Total CO2 29.9 mEq/L (20-26) H 06/17/16 13:30 BUN 40 mg/dL (8-26) H D 06/20/16 02:55 Creatinine 4.37 mg/dL (0.72-1.25) H 06/20/16 02:55 Est GFR ( Amer) 16 (> 60) L 06/20/16 02:55 Est GFR (Non-Af Amer) 13 (> 60) L 06/20/16 02:55 Glucose 102 mg/dL (70-99) H 06/20/16 02:55 POC Glucose 103 (58-89) H 06/20/16 07:50 Calculated Osmolality 302 (280-300) H 06/20/16 02:55 Calcium 8.4 mg/dL (8.6-10.8) L 06/20/16 02:55 Phosphorus 6.9 mg/dL (2.3-4.7) H 06/16/16 04:20 Iron 51 mcg/dL (65-175) L 06/16/16 04:20 Transferrin 167 mg/dL (174-364) L 06/16/16 04:20 Ferritin 1381 ng/ml (22-275) H 06/16/16 04:20 Creatine Kinase 20 Units/L (30-200) L 06/16/16 11:25 Albumin 2.3 g/dL (3.5-5.0) L 06/16/16 04:20 PTH Intact 199.7 pg/ml (8.5-72.5) H 06/16/16 04:20 General appearance: Present: no acute distress - Respiratory Respiratory exam: Present: decreased breath sounds, CTAB - Cardiovascular Cardiovascular exam: Present: irregular rhythm - GI/Abdominal GI/Abdominal exam: Present: normal bowel sounds, soft - Extremities Exam Extremities exam: Present: normal capillary refill, normal inspection - Neurological Exam Neurological exam: Present: alert Additional comments: Pleasantly confused. - Psychiatric Psychiatric exam: Present: flat affect - Skin Skin exam: Present: dry, pallor, warm Palliative Quality Palliative Quality: Screen for Code Status: Yes, Screen for Goals of Care: Yes, Screen for Pain: Yes, If Pain Regimen Started, Initiate Bowel Regimen: NA, Screen for Nausea/Vomitting: NA Code Status: 06/14/16 15:57 Resuscitation Status: Active [RES] Routine Comment: Resuscitation Status: Full Code - Labs CBC & Chem 7: 06/20/16 02:55 06/20/16 02:55 Labs: Laboratory Results - last 24 hr 06/19/16 06/19/16 06/20/16 11:10 20:00 02:55 WBC 7.4 RBC 2.38 L Hgb 8.0 L Hct 26.4 L MCV 110.9 H MCH 33.6 H MCHC 30.3 L RDW 20.1 H Plt Count 140 MPV 11.7 Immature Gran % 1.2 Seg Neutrophils % 78.8 Lymphocytes % 6.0 Monocytes % 13.7 Eosinophils % 0.3 Basophils % 0.0 Neutrophils # 5.8 Lymphocytes # 0.4 L Monocytes # 1.0 Eosinophils # 0.0 Basophils # 0.0 Nucleated RBCs/100 WBC 0.3 H Platelet Estimate Normal Anisocytosis 2+ A Macrocytosis Present A PT INR Sodium Potassium Chloride Carbon Dioxide BUN Creatinine Est GFR ( Amer) Est GFR (Non-Af Amer) BUN/Creatinine Ratio Glucose POC Glucose 104 H 114 H Calculated Osmolality Calcium 06/20/16 06/20/16 06/20/16 02:55 02:55 07:50 WBC RBC Hgb Hct MCV MCH MCHC RDW Plt Count MPV Immature Gran % Seg Neutrophils % Lymphocytes % Monocytes % Eosinophils % Basophils % Neutrophils # Lymphocytes # Monocytes # Eosinophils # Basophils # Nucleated RBCs/100 WBC Platelet Estimate Anisocytosis Macrocytosis PT 17.7 H INR 1.6 Sodium 141 Potassium 4.3 Chloride 102 Carbon Dioxide 27 BUN 40 H D Creatinine 4.37 H Est GFR ( Amer) 16 L Est GFR (Non-Af Amer) 13 L BUN/Creatinine Ratio 9 Glucose 102 H POC Glucose 103 H Calculated Osmolality 302 H Calcium 8.4 L - Impressions Impressions Chest X-Ray 06/17/16 10:49 IMPRESSION: 1. Airspace and interstitial opacities bilaterally which either reflect pulmonary edema or multifocal pneumonia. 2. Small bilateral pleural effusions. 3. Left central venous catheter with the tip overlying the distal left brachiocephalic vein. D/ / 06/17/2016 13:08:07 Erin Henriquez MD / Adriane Davies Interpreting Provider: Erin Henriquez MD - ABG Interpretation ABG results: ABG ABG pH 7.31 pH Units (7.32-7.45) L 06/17/16 13:30 ABG pCO2 56 mmHg (35-45) H 06/17/16 13:30 ABG pO2 98 mmHg (85-104) 06/17/16 13:30 ABG O2 Saturation 97 % (95-98) 06/17/16 13:30 PT/INR, D-dimer PT 17.7 Seconds (9.4-12.1) H 06/20/16 02:55 Consult Discharge Plan - Plan Referrals: Carl Cormier DO [Primary Care Provider] - (possible ecf placement )
[2016-06-20] MEDS ORDERED: Heparin 1,000 UNITS/500 mL NS 500 ML ONE (09:59)
[2016-06-20] MEDS ORDERED: *HR* Midazolam HCl 2 MG/2 ML VIAL IV PRN (10:11)
[2016-06-20] MEDS ORDERED: *HR* FentaNYL (PF) 100 MCG/2 ML VIAL IV PRN (10:11)
[2016-06-20] MEDS ORDERED: Clindamycin 600 MG/50 ML 600 MG/50 ML IV.SOLN IVPB ONE (10:11)
[2016-06-20] MEDS ORDERED: 0.9 % Sodium Chloride 500 ML ONE (10:19)
--- NOTE | 2016-06-20 11:32 | Nephrology Progress Note ---
Date of Encounter: 06/20/16 Time of Encounter: 11:30 - Assessment and Plan (1) ESRD (end stage renal disease) on dialysis Current Visit: Yes Status: Chronic Will continue HD MWF and as needed. Recommend renal diet. Adjust medication for renal function. Will perform additional dialysis as needed. (2) MSSA (methicillin susceptible Staphylococcus aureus) infection Current Visit: Yes Status: Acute Will continue antibiotics. (3) Anemia of chronic disease Current Visit: Yes Status: Chronic Follow hemoglobin. Transfuse as needed. Subjective Principal diagnosis: Sepsis Interval history: Patient seen and evaluated. His family is at the bedside. No new complaints. He is feeling better. Pain is controlled and he has an increasing appetite. Objective - Vital Signs Vital signs: Vital Signs Temp Pulse Resp BP Pulse Ox 06/20/16 11:21 107 14 103/54 100 06/20/16 11:15 91 12 111/60 99 06/20/16 11:10 79 12 108/64 99 06/20/16 11:05 82 11 105/64 100 06/20/16 11:00 100 17 107/53 98 06/20/16 10:55 82 12 102/56 99 06/20/16 10:50 97 12 98/47 97 06/20/16 10:45 77 19 89/50 100 06/20/16 10:40 77 26 98/48 100 06/20/16 10:36 71 14 91/54 100 06/20/16 10:27 66 20 117/70 100 06/20/16 10:23 82 19 109/36 100 06/20/16 10:00 89 11 98/47 98 06/20/16 08:13 92 06/20/16 08:08 92 19 99/63 100 06/20/16 05:10 97.1 F L 06/20/16 04:27 80 19 94/72 100 06/20/16 04:16 16 98 06/20/16 02:42 79 16 104/62 100 06/20/16 00:39 97.6 F 79 20 99/61 100 06/19/16 23:03 80 17 100 06/19/16 22:25 80 18 121/76 100 06/19/16 20:41 97.6 F 06/19/16 20:39 89 16 116/94 100 06/19/16 19:06 81 16 112/79 100 06/19/16 18:16 81 16 117/65 100 06/19/16 16:28 16 100 06/19/16 16:00 96.7 F L 86 20 101/63 100 06/19/16 14:00 86 20 104/63 100 06/19/16 12:00 91 20 117/66 100 Intake and Output 06/19/16 06/20/16 06/20/16 23:59 07:59 15:59 Intake Total 20 50 / 50 Balance 50 / 50 Intake: Oral 50 / 50 Other: Stool Size Moderate Stool Consistency formed Stool Characteristics Normal for Patient Stool Color Brown # Bowel Movements 1 Weight 87.543 kg Blood Glucose* 114 103 Patient Weight 06/20/16 23:59 Weight 87.543 kg - General Appearance General appearance: Present: well-developed, well-nourished EENT: Present: ATNC Neck: Present: supple Respiratory: Present: clear Cardiology: Present: regular rate, regular rhythm Gastrointestinal: Present: normoactive bowel sounds Integumentary: Present: warm and dry Neurologic: Present: alert and oriented x3 Musculoskeletal: Present: no cyanosis Psychiatric: Present: mood/affect appropriate - Lab 06/20/16 02:55 06/20/16 02:55 Most recent lab results ABG pH 7.31 pH Units (7.32-7.45) L 06/17/16 13:30 ABG pCO2 56 mmHg (35-45) H 06/17/16 13:30 ABG pO2 98 mmHg (85-104) 06/17/16 13:30 ABG HCO3 28.2 mEQ/L (21-27) H 06/17/16 13:30 ABG O2 Saturation 97 % (95-98) 06/17/16 13:30 Calcium 8.4 mg/dL (8.6-10.8) L 06/20/16 02:55 Phosphorus 6.9 mg/dL (2.3-4.7) H 06/16/16 04:20 Consult Discharge Plan - Plan Referrals: Carl Cormier DO [Primary Care Provider] - (possible ecf placement )
--- NOTE | 2016-06-20 12:29 | IR Procedure Note ---
Date of procedure: 06/20/16 Consent Obtained: Verbal consent Timeout: Correct patient and procedure verified, Correct site verified, Time out performed, Skin prep completed Local anesthetic: Lidocaine 1% Indications: Sepsis, MSSA bacteremia, renal insuffiency Procedure Performed: Tunneled HD and small bore cathter placement Site/Technique: Right attempted, but left side successful. Detailed in dictation. Results/Findings: Left IJV access for sb and tunneled HD catheter Estimated blood loss (cc): 3 Complications: None; Tolerated procedure well Post Procedure Treatment Plan: Monitoring in pts unit room
[2016-06-20] MEDS: Famotidine 20 MG TABLET PO SCH (13:35)
[2016-06-20] MEDS: Multivitamin Liquid 15 ML UDC PO SCH (13:35)
[2016-06-20] MEDS: *HR* Amiodarone 200 MG TABLET PO SCH (13:37)
[2016-06-20] MEDS: Aspirin 81 MG TAB.CHEW PO SCH (13:37)
[2016-06-20] MEDS: Silvasorb 44.4 ML TUBE TP SCH (14:49)
[2016-06-20] MEDS ORDERED: Warfarin perPT PO PRN (18:00)
[2016-06-21] MEDS: Ipratropium/Albuterol Neb 3 ML IH SCH ×4 (03:43→22:09)
[2016-06-21 04:13] LABS: Hemoglobin 7.8 g/dL (12.9-16.9); Mean Corpuscular Hemoglobin 33.6 pg (28.0-33.3); Mean Corpuscular Volume 112.1 fL (83.0-100.0); Mean Platelet Volume 12.2 fL (9.4-12.4); Platelet Count 114 K/mcL (140-400); Red Blood Count 2.32 M/mcL (4.19-5.50)
[2016-06-21 04:14] LABS: INR 1.8; Prothrombin Time 19.6 Seconds (9.4-12.1)
[2016-06-21 04:24] LABS: Calcium 8.3 mg/dL (8.6-10.8); Potassium 4.3 mEq/L (3.5-4.5)
[2016-06-21] MEDS: Levothyroxine 25 MCG TABLET PO SCH (05:25)
[2016-06-21] MEDS: Aspirin 81 MG TAB.CHEW PO SCH (08:15)
[2016-06-21] MEDS: Famotidine 20 MG TABLET PO SCH (08:15)
[2016-06-21] MEDS: *HR* Amiodarone 200 MG TABLET PO SCH (08:59)
[2016-06-21] MEDS: Multivitamin Liquid 15 ML UDC PO SCH (08:59)
--- NOTE | 2016-06-21 10:40 | Internal Med Progress Note ---
Date of Encounter: 06/21/16 Time of Encounter: 10:36 - Assessment and plan (1) AV fistula infection Current Visit: Yes Status: Acute Assessment and plan: MSSA bacteremia Diagnosed at facility in [place] supposedly with MSSA. Patient was initially treated with oxacillin and had an allergic reaction. Patient is currently on daptomycin. This infection was surgically addressed in [place]. Infection appears to be improving, white count was normal, no other signs or symptoms of Infection. Continue daptomycin. Continue Daptomycin (last day 07/16/16), request sent to [place] to retrieve culture results and sensitivity. Qualifiers: Encounter type: subsequent encounter Qualified Code(s): T82.7XXD - Infection and inflammatory reaction due to other cardiac and vascular devices, implants and grafts, subsequent encounter (2) Hyperkalemia Current Visit: Yes Status: Acute (3) MSSA (methicillin susceptible Staphylococcus aureus) infection Current Visit: Yes Status: Acute (4) Supratherapeutic INR Current Visit: Yes Status: Acute Assessment and plan: Was reversed with vitamin K. There is no evidence of active bleeding. Continue Coumadin per pharmacy dosing. (5) Anemia of chronic disease Current Visit: Yes Status: Chronic Assessment and plan: May give 1 unit of RBCs monitor CBC No evidence of active bleeding. Continue erythropoietin stimulating agents per nephrology. (6) ESRD (end stage renal disease) on dialysis Current Visit: Yes Status: Chronic Assessment and plan: Nephrology is following. Continue dialysis Has hemodialysis catheter for access. Followed by Dr Fisher (7) Hyperphosphatemia Current Visit: Yes Status: Chronic (8) Hypotension Current Visit: Yes Status: Acute Assessment and plan: Was transferred to the ICU due to severe hypotension in the low 60s Continue Midodrine Qualifiers: Hypotension type: unspecified hypotension type Qualified Code(s): I95.9 - Hypotension, unspecified - Time Spent With Patient Greater than 35 minutes - Subjective Interval history: Confused, disoriented in time and place, denies any pain, feels slightly short of breath, unable to complete review of systems due to confusion - Constitutional Vitals: Temp Pulse Resp BP Pulse Ox 97.3 F L 83 16 99/60 86 L 06/21/16 03:29 06/21/16 03:29 06/21/16 10:04 06/21/16 03:06/21/16 10:04 General appearance: Present: A&O X 1, pleasant, no acute distress - Head Head exam: Present: atraumatic, normocephalic - Eye Eye exam: Present: PERRL, conjuntiva pink, sclera anicteric Pupils: Present: PERRL - Neck Neck exam general surgery: Present: supple, trachea midline. Absent: lymphadenopathy - Respiratory Respiratory exam: Present: CTAB, rales (Findings diffuse crackles, no wheezing) . Absent: accessory muscle use, rhonchi, wheezes - Cardiovascular Cardiovascular exam: Present: RRR, +S1, +S2. Absent: diastolic murmur, gallop, rubs, systolic murmur - GI/Abdominal GI/Abdominal exam: Present: normal bowel sounds, soft, no peritoneal signs. Absent: distended, tenderness - Extremities Exam Extremities exam: Present: pedal edema (+1 pitting edema both lower extremities) , warm, radial pulses palpable and symetrical. Absent: calf tenderness, cyanotic Additional comments: Left upper extremity wound without signs of infection covered by dressing - Neurological Exam Neurological exam: Present: CN II-XII intact, no focal deficits. Absent: oriented X3, pronater drift, facial droop, speech deficit - Skin Skin exam: Present: dry, intact Additional comments: Left subclavian dialysis catheter Internal Medicine: Result - Labs CBC & Chem 7: 06/21/16 04:00 06/21/16 04:00 Labs: Short CBC 06/21/16 Range/Units 04:00 WBC 6.7 (4.3-11.1) K/mcL Hgb 7.8 L (12.9-16.9) g/dL Hct 26.0 L (37.5-50.1) % Plt Count 114 L (140-400) K/mcL BMP 06/21/16 04:00 Sodium 139 Potassium 4.3 Chloride 102 Carbon Dioxide 29 BUN 25 D Creatinine 3.33 H Glucose 84 Calcium 8.3 L - ABG Interpretation ABG results: ABG ABG pH 7.31 pH Units (7.32-7.45) L 06/17/16 13:30 ABG pCO2 56 mmHg (35-45) H 06/17/16 13:30 ABG pO2 98 mmHg (85-104) 06/17/16 13:30 ABG O2 Saturation 97 % (95-98) 06/17/16 13:30 PT/INR, D-dimer PT 19.6 Seconds (9.4-12.1) H 06/21/16 04:00 - Impressions Impressions Videofluoroscopic Swallow 06/18/16 00:01 IMPRESSION: Aspiration of nectar thick barium and thin barium residuals. Please see separate speech pathology report for full discussion of findings and recommendations. D/ / 06/18/2016 11:20:06 Jennifer Henriquez MD / Adriane Davies Interpreting Provider: Jennifer Henriquez MD Guidance Needle Placement Ultrasound 06/20/16 00:00 IMPRESSION: Successful ultrasound and fluoroscopy guided tunneled small bore central infusion catheter, as well as tunneled hemodialysis catheter placement. These may be used immediately. Successful temporary hemodialysis catheter removal. D/ / Kurtis Graves MD / Kurtis Graves MD Interpreting Provider: Kurtis Graves MD Insertion Non-Tunneled Catheter 06/20/16 00:00 IMPRESSION: Successful ultrasound and fluoroscopy guided tunneled small bore central infusion catheter, as well as tunneled hemodialysis catheter placement. These may be used immediately. Successful temporary hemodialysis catheter removal. D/ / Kurtis Graves MD / Kurtis Graves MD Interpreting Provider: Kurtis Graves MD Insertion Non-Tunneled Catheter 06/20/16 00:00 IMPRESSION: Successful ultrasound and fluoroscopy guided tunneled small bore central infusion catheter, as well as tunneled hemodialysis catheter placement. These may be used immediately. Successful temporary hemodialysis catheter removal. D/ / Kurtis Graves MD / Kurtis Graves MD Interpreting Provider: Kurtis Graves MD Vena Cavagram, [place] 06/20/16 00:00 IMPRESSION: Successful ultrasound and fluoroscopy guided tunneled small bore central infusion catheter, as well as tunneled hemodialysis catheter placement. These may be used immediately. Successful temporary hemodialysis catheter removal. D/ / Kurtis Graves MD / Kurtis Graves MD Interpreting Provider: Kurtis Graves MD Consult Discharge Plan - Plan Referrals: Carl Cormier DO [Primary Care Provider] - (possible ecf placement ) Prescriptions: Daptomycin 600 mg IV Q48H #13 vial
--- NOTE | 2016-06-21 10:56 | Nephrology Progress Note ---
Date of Encounter: 06/21/16 Time of Encounter: 10:54 - Assessment and Plan (1) ESRD (end stage renal disease) on dialysis Current Visit: Yes Status: Chronic Will continue HD MWF and as needed. Recommend renal diet. Adjust medication for renal function. Will perform additional dialysis as needed. (2) MSSA (methicillin susceptible Staphylococcus aureus) infection Current Visit: Yes Status: Acute Will continue antibiotics. (3) Anemia of chronic disease Current Visit: Yes Status: Chronic Follow hemoglobin. Transfuse as needed. Subjective Principal diagnosis: Sepsis Interval history: Patient seen and evaluated. No new complaints. He is feeling better. Pain is controlled and he has an increasing appetite. Objective - Vital Signs Vital signs: Vital Signs Temp Pulse Resp BP Pulse Ox 06/21/16 10:04 16 86 L 06/21/16 03:45 20 94 L 06/21/16 03:29 97.3 F L 83 16 99/60 95 06/20/16 23:33 97.8 F 92 20 97/54 92 L 06/20/16 22:54 28 87 L 06/20/16 19:37 97.4 F L 88 18 109/66 97 06/20/16 16:37 18 95 06/20/16 16:19 96.3 F L 78 18 102/60 95 06/20/16 15:35 22 103/56 06/20/16 15:20 89/56 06/20/16 15:05 103/55 06/20/16 14:50 92/54 06/20/16 14:35 87/56 06/20/16 14:20 83/56 06/20/16 14:05 96/46 06/20/16 14:00 80 14 89/52 100 06/20/16 13:55 97/53 06/20/16 13:50 101/55 06/20/16 13:35 88/53 06/20/16 13:20 97/58 06/20/16 13:05 95/85 06/20/16 12:50 109/63 06/20/16 12:35 110/72 06/20/16 12:20 109/58 06/20/16 12:14 107 14 109/58 100 06/20/16 12:05 97.1 F L 18 109/58 06/20/16 11:21 107 14 103/54 100 06/20/16 11:15 91 12 111/60 99 06/20/16 11:10 79 12 108/64 99 06/20/16 11:05 82 11 105/64 100 06/20/16 11:00 100 17 107/53 98 06/20/16 10:55 82 12 102/56 99 Intake and Output 06/20/16 06/21/16 06/21/16 23:59 07:59 15:59 Intake Total 0 / 0 120 / 120 Output Total 0 / 0 Balance 0 / 0 120 / 120 Intake: Oral 0 / 0 120 / 120 Output: Urine 0 / 0 Other: Meal APPLESAUCE WITH MEDS Weight 83.3 kg Patient Weight 06/21/16 23:59 Weight 83.3 kg - General Appearance General appearance: Present: well-developed, well-nourished EENT: Present: ATNC Neck: Present: supple Respiratory: Present: clear Cardiology: Present: no edema, regular rate, regular rhythm Gastrointestinal: Present: normoactive bowel sounds, no tenderness Integumentary: Present: warm and dry Musculoskeletal: Present: no cyanosis Psychiatric: Present: cooperative - Lab 06/21/16 04:00 06/21/16 04:00 Most recent lab results ABG pH 7.31 pH Units (7.32-7.45) L 06/17/16 13:30 ABG pCO2 56 mmHg (35-45) H 06/17/16 13:30 ABG pO2 98 mmHg (85-104) 06/17/16 13:30 ABG HCO3 28.2 mEQ/L (21-27) H 06/17/16 13:30 ABG O2 Saturation 97 % (95-98) 06/17/16 13:30 Calcium 8.3 mg/dL (8.6-10.8) L 06/21/16 04:00 Phosphorus 6.9 mg/dL (2.3-4.7) H 06/16/16 04:20 Consult Discharge Plan - Plan Referrals: Carl Cormier DO [Primary Care Provider] - (possible ecf placement ) Prescriptions: Daptomycin 600 mg IV Q48H #13 vial
[2016-06-21] MEDS: Silvasorb 44.4 ML TUBE TP SCH (17:44)
[2016-06-21] MEDS: DAPTOmycin 600 MG in 0.9 % Sodium Chloride 100 ML IVPB SCH (18:48)
[2016-06-22] MEDS: Ipratropium/Albuterol Neb 3 ML IH SCH ×5 (04:25→22:30)
[2016-06-22 04:39] LABS: INR 2.5; Prothrombin Time 27.3 Seconds (9.4-12.1)
[2016-06-22 04:47] LABS: Hematocrit 28.3 % (37.5-50.1); Hemoglobin 8.6 g/dL (12.9-16.9); Mean Corpuscular HGB Conc 30.4 g/dL (31.6-35.5); Mean Corpuscular Hemoglobin 32.5 pg (28.0-33.3); Mean Corpuscular Volume 106.8 fL (83.0-100.0); Mean Platelet Volume 13.2 fL (9.4-12.4); Platelet Count 108 K/mcL (140-400); Red Blood Count 2.65 M/mcL (4.19-5.50); Red Cell Distribution Width 22.1 % (11.5-14.5)
[2016-06-22 04:48] LABS: Calcium 8.2 mg/dL (8.6-10.8); Potassium 4.7 mEq/L (3.5-4.5)
[2016-06-22] MEDS: Levothyroxine 25 MCG TABLET PO SCH (05:56)
[2016-06-22] MEDS: Aspirin 81 MG TAB.CHEW PO SCH (08:54)
[2016-06-22] MEDS: *HR* Amiodarone 200 MG TABLET PO SCH (08:55)
[2016-06-22] MEDS: Multivitamin Liquid 15 ML UDC PO SCH (08:55)
[2016-06-22] MEDS: Famotidine 20 MG TABLET PO SCH (08:57)
--- NOTE | 2016-06-22 09:50 | Nephrology Progress Note ---
Date of Encounter: 06/22/16 Time of Encounter: 09:47 - Assessment and Plan (1) ESRD (end stage renal disease) on dialysis Current Visit: Yes Status: Chronic Will continue HD MWF and as needed. Recommend renal diet. Adjust medication for renal function. Will perform additional dialysis as needed. (2) MSSA (methicillin susceptible Staphylococcus aureus) infection Current Visit: Yes Status: Acute Will continue antibiotics. (3) Anemia of chronic disease Current Visit: Yes Status: Chronic Follow hemoglobin. Transfuse as needed. On Aranesp. Subjective Principal diagnosis: Sepsis Interval history: Patient seen and evaluated. He is asleep and comfortable . Objective - Vital Signs Vital signs: Vital Signs Temp Pulse Resp BP Pulse Ox 06/22/16 09:27 18 93 L 06/22/16 07:30 97.1 F L 93 18 93/61 92 L 06/22/16 04:25 18 95 06/22/16 00:05 98.6 F 95 16 98/58 99 06/21/16 22:09 20 91 L 06/21/16 20:09 97.7 F 99 17 100/61 93 L 06/21/16 16:08 97.6 F 82 18 105/68 95 06/21/16 16:02 18 95 06/21/16 13:54 97.6 F 86 16 100/62 94 L 06/21/16 13:39 97.7 F 86 16 06/21/16 10:04 16 86 L Intake and Output 06/21/16 06/22/16 06/22/16 23:59 07:59 15:59 Intake Total 350 / 350 100 / 100 Balance 350 / 350 100 / 100 Intake: Oral 100 / 100 Blood Product 350 / 350 Rbcs Leuko Poor As-3 2nd 350 / 350 Unit [id number] Other: Meal Breakfast Percent of Meal Consumed 5% - General Appearance General appearance: Present: well-developed, well-nourished EENT: Present: ATNC Additional Comments: respirations are unlabored. Cardiology: Present: regular rate Additional Comments: asleep. - Lab 06/22/16 04:20 06/22/16 04:20 Most recent lab results ABG pH 7.31 pH Units (7.32-7.45) L 06/17/16 13:30 ABG pCO2 56 mmHg (35-45) H 06/17/16 13:30 ABG pO2 98 mmHg (85-104) 06/17/16 13:30 ABG HCO3 28.2 mEQ/L (21-27) H 06/17/16 13:30 ABG O2 Saturation 97 % (95-98) 06/17/16 13:30 Calcium 8.2 mg/dL (8.6-10.8) L 06/22/16 04:20 Phosphorus 6.9 mg/dL (2.3-4.7) H 06/16/16 04:20 Consult Discharge Plan - Plan Referrals: Carl Cormier DO [Primary Care Provider] - (possible ecf placement ) Prescriptions: Daptomycin 600 mg IV Q48H #13 vial
--- NOTE | 2016-06-22 10:36 | Internal Med Progress Note ---
Date of Encounter: 06/22/16 Time of Encounter: 10:34 - Assessment and plan (1) AV fistula infection Current Visit: Yes Status: Acute Assessment and plan: MSSA bacteremia Diagnosed at facility in [place] supposedly with MSSA. Patient was initially treated with oxacillin and had an allergic reaction. Patient is currently on daptomycin. This infection was surgically addressed in [place]. Infection appears to be improving, white count was normal, no other signs or symptoms of Infection. Continue Daptomycin (last day 07/16/16), request sent to [place] to retrieve culture results and sensitivity. Check a CPK in the morning Qualifiers: Encounter type: subsequent encounter Qualified Code(s): T82.7XXD - Infection and inflammatory reaction due to other cardiac and vascular devices, implants and grafts, subsequent encounter (2) Hyperkalemia Current Visit: Yes Status: Acute Assessment and plan: Monitor (3) MSSA (methicillin susceptible Staphylococcus aureus) infection Current Visit: Yes Status: Acute (4) Supratherapeutic INR Current Visit: Yes Status: Acute Assessment and plan: Was reversed with vitamin K. There is no evidence of active bleeding. Continue Coumadin per pharmacy dosing. (5) Anemia of chronic disease Current Visit: Yes Status: Chronic Assessment and plan: 1 unit of red blood cells given May consult GI monitor CBC No evidence of active bleeding. Continue erythropoietin stimulating agents per nephrology. (6) ESRD (end stage renal disease) on dialysis Current Visit: Yes Status: Chronic Assessment and plan: Nephrology is following. Continue dialysis Has hemodialysis catheter for access. Followed by Dr Fisher (7) Hyperphosphatemia Current Visit: Yes Status: Chronic (8) Hypotension Current Visit: Yes Status: Acute Assessment and plan: Was transferred to the ICU due to severe hypotension in the low 60s Continue Midodrine Qualifiers: Hypotension type: unspecified hypotension type Qualified Code(s): I95.9 - Hypotension, unspecified (9) Dysphagia Current Visit: Yes Status: Acute Assessment and plan: Followed by speech pathology service, advanced to soft diet with honey thickened liquids Qualifiers: Dysphagia type: other dysphagia Qualified Code(s): R13.19 - Other dysphagia - Time Spent With Patient Greater than 35 minutes - Subjective Interval history: Disoriented and confused, denies any pain, feels slightly short of breath, very sleepy unable to complete review of systems due to confusion - Constitutional Vitals: Temp Pulse Resp BP Pulse Ox 97.1 F L 93 18 93/61 93 L 06/22/16 07:30 06/22/16 07:30 06/22/16 09:27 06/22/16 07:30 06/22/16 09:27 General appearance: Present: A&O X 1, pleasant, no acute distress - Head Head exam: Present: atraumatic, normocephalic - Eye Eye exam: Present: PERRL, conjuntiva pink, sclera anicteric Pupils: Present: PERRL - Neck Neck exam general surgery: Present: supple, trachea midline. Absent: lymphadenopathy - Respiratory Respiratory exam: Present: decreased breath sounds, CTAB. Absent: accessory muscle use, rales, rhonchi, wheezes Additional comments: Upper airway congestion - Cardiovascular Cardiovascular exam: Present: RRR, +S1, +S2. Absent: diastolic murmur, gallop, rubs, systolic murmur - GI/Abdominal GI/Abdominal exam: Present: normal bowel sounds, soft, no peritoneal signs. Absent: distended, tenderness - Extremities Exam Extremities exam: Present: warm, radial pulses palpable and symetrical. Absent : calf tenderness, cyanotic, pedal edema Additional comments: Multiple ecchymotic areas in both upper and lower extremities, severe weakness in both lower extremities - Neurological Exam Neurological exam: Present: CN II-XII intact, no focal deficits. Absent: oriented X3, pronater drift, facial droop, speech deficit - Skin Skin exam: Present: dry, intact Internal Medicine: Result - Labs CBC & Chem 7: 06/22/16 04:20 06/22/16 04:20 Labs: Short CBC 06/22/16 Range/Units 04:20 WBC 7.9 (4.3-11.1) K/mcL Hgb 8.6 L (12.9-16.9) g/dL Hct 28.3 L (37.5-50.1) % Plt Count 108 L (140-400) K/mcL BMP 06/22/16 04:20 Sodium 140 Potassium 4.7 H Chloride 103 Carbon Dioxide 28 BUN 36 H D Creatinine 4.71 H Glucose 98 Calcium 8.2 L - ABG Interpretation ABG results: ABG ABG pH 7.31 pH Units (7.32-7.45) L 06/17/16 13:30 ABG pCO2 56 mmHg (35-45) H 06/17/16 13:30 ABG pO2 98 mmHg (85-104) 06/17/16 13:30 ABG O2 Saturation 97 % (95-98) 06/17/16 13:30 PT/INR, D-dimer PT 27.3 Seconds (9.4-12.1) H 06/22/16 04:20 Consult Discharge Plan - Plan Referrals: Carl Cormier DO [Primary Care Provider] - (possible ecf placement ) Prescriptions: Daptomycin 600 mg IV Q48H #13 vial
[2016-06-22 16:24] LABS: ABG Base Excess 4.7 mEq/L (-2.0 to 3.0); ABG HCO3 31.1 mEQ/L (21-27); ABG Oxygen Saturation 85 % (95-98); ABG PCO2 55 mmHg (35-45); ABG PH 7.36 pH Units (7.32-7.45); ABG PO2 52 mmHg (85-104); ABG TCO2 32.8 mEq/L (20-26); Blood Gas Liter Flow 2 L/MIN
[2016-06-22] MEDS ORDERED: *HR* Warfarin 3 MG TABLET PO ONE (18:00)
[2016-06-22] MEDS: Atropine Sulfate 300 DROP/15 ML BOTTLE SL PRN (22:56)
[2016-06-23] MEDS: Ipratropium/Albuterol Neb 3 ML IH SCH ×4 (03:22→22:58)
[2016-06-23] MEDS: Atropine Sulfate 300 DROP/15 ML BOTTLE SL PRN ×6 (04:20→22:58)
[2016-06-23] MEDS: Silvasorb 44.4 ML TUBE TP SCH ×2 (04:20→13:19)
[2016-06-23 04:40] LABS: Hematocrit 28.2 % (37.5-50.1); Hemoglobin 8.7 g/dL (12.9-16.9); Mean Corpuscular HGB Conc 30.9 g/dL (31.6-35.5); Mean Corpuscular Hemoglobin 32.8 pg (28.0-33.3); Mean Corpuscular Volume 106.4 fL (83.0-100.0); Mean Platelet Volume 12.5 fL (9.4-12.4); Platelet Count 104 K/mcL (140-400); Red Blood Count 2.65 M/mcL (4.19-5.50); Red Cell Distribution Width 21.5 % (11.5-14.5)
[2016-06-23 04:44] LABS: INR 3.4; Prothrombin Time 38.6 Seconds (9.4-12.1)
[2016-06-23 04:49] LABS: Calcium 8.3 mg/dL (8.6-10.8); Potassium 5.2 mEq/L (3.5-4.5)
[2016-06-23] MEDS: Aspirin 81 MG TAB.CHEW PO SCH (06:31)
[2016-06-23] MEDS: Multivitamin Liquid 15 ML UDC PO SCH (06:31)
[2016-06-23] MEDS: Famotidine 20 MG TABLET PO SCH (06:32)
[2016-06-23] MEDS: *HR* Amiodarone 200 MG TABLET PO SCH (06:32)
[2016-06-23] MEDS: Levothyroxine 25 MCG TABLET PO SCH (06:32)
[2016-06-23] MEDS ORDERED: 0.9 % Sodium Chloride 250 ML IV PRN (08:23)
[2016-06-23] MEDS ORDERED: *HR* Heparin 10,000 UNIT/10 ML VIAL IV PRN (08:23)
--- NOTE | 2016-06-23 08:41 | Internal Med Progress Note ---
Date of Encounter: 06/23/16 Time of Encounter: 08:38 - Assessment and plan (1) AV fistula infection Current Visit: Yes Status: Acute Assessment and plan: MSSA bacteremia Diagnosed at facility in [place] supposedly with MSSA. Patient was initially treated with oxacillin and had an allergic reaction. Patient is currently on daptomycin. This infection was surgically addressed in [place]. Infection appears to be improving, white count was normal, no other signs or symptoms of Infection. Continue Daptomycin (last day 07/16/16), request sent to [place] to retrieve culture results and sensitivity. Check a CPK in the morning Qualifiers: Encounter type: subsequent encounter Qualified Code(s): T82.7XXD - Infection and inflammatory reaction due to other cardiac and vascular devices, implants and grafts, subsequent encounter (2) Hyperkalemia Current Visit: Yes Status: Acute Assessment and plan: Monitor Consider Kayexalate (3) MSSA (methicillin susceptible Staphylococcus aureus) infection Current Visit: Yes Status: Acute (4) Supratherapeutic INR Current Visit: Yes Status: Acute Assessment and plan: Was reversed with vitamin K. There is no evidence of active bleeding. Coumadin was restarted, hold his dose tonight as his INR is supratherapeutic again at 3.4 Continue Coumadin per pharmacy dosing. (5) Anemia of chronic disease Current Visit: Yes Status: Chronic Assessment and plan: 1 unit of red blood cells given May consult GI i fno hospice is pursued monitor CBC No evidence of active bleeding. Continue erythropoietin stimulating agents per nephrology. (6) ESRD (end stage renal disease) on dialysis Current Visit: Yes Status: Chronic Assessment and plan: Nephrology is following. Continue dialysis Has hemodialysis catheter for access. Followed by Dr Fisher (7) Hyperphosphatemia Current Visit: Yes Status: Chronic (8) Hypotension Current Visit: Yes Status: Acute Assessment and plan: Was transferred to the ICU due to severe hypotension in the low 60s Continue Midodrine Qualifiers: Hypotension type: unspecified hypotension type Qualified Code(s): I95.9 - Hypotension, unspecified (9) Dysphagia Current Visit: Yes Status: Acute Assessment and plan: Followed by speech pathology service, advanced to soft diet with honey thickened liquids The patient seems to be more congested, family decided to switch his status to DNR CC, consider pursuing full comfort measures. Palliative care service following. I would advise against a PEG tube as it would not prevent any aspiration. Patient is declining Qualifiers: Dysphagia type: other dysphagia Qualified Code(s): R13.19 - Other dysphagia - Time Spent With Patient Greater than 35 minutes - Subjective Interval history: Very congested. Disoriented and confused, denies any pain, feels slightly short of breath, very sleepy unable to complete review of systems due to confusion - Constitutional Vitals: Temp Pulse Resp BP Pulse Ox 97.5 F L 90 17 111/72 99 06/23/16 08:17 06/23/16 08:17 06/23/16 08:17 06/23/16 08:17 06/23/16 08:17 General appearance: Present: A&O X 1 (Oriented in person only), pleasant, no acute distress - Head Head exam: Present: atraumatic, normocephalic - Eye Eye exam: Present: PERRL, conjuntiva pink, sclera anicteric Pupils: Present: PERRL - Neck Neck exam general surgery: Present: supple, trachea midline. Absent: lymphadenopathy - Respiratory Respiratory exam: Present: CTAB, rales (Diffuse crackles). Absent: accessory muscle use, rhonchi, wheezes - Cardiovascular Cardiovascular exam: Present: RRR, +S1, +S2. Absent: diastolic murmur, gallop, rubs, systolic murmur - GI/Abdominal GI/Abdominal exam: Present: normal bowel sounds, soft, no peritoneal signs. Absent: distended, tenderness - Extremities Exam Extremities exam: Present: warm, radial pulses palpable and symetrical. Absent : calf tenderness, cyanotic, pedal edema Additional comments: left upper extremity wound covered by dressing, no signs of infection - Neurological Exam Neurological exam: Present: CN II-XII intact, no focal deficits. Absent: oriented X3, pronater drift, facial droop, speech deficit - Skin Skin exam: Present: dry, intact Internal Medicine: Result - Labs CBC & Chem 7: 06/23/16 04:20 06/23/16 04:20 Labs: Short CBC 06/23/16 Range/Units 04:20 WBC 7.6 (4.3-11.1) K/mcL Hgb 8.7 L (12.9-16.9) g/dL Hct 28.2 L (37.5-50.1) % Plt Count 104 L (140-400) K/mcL BMP 06/23/16 04:20 Sodium 138 Potassium 5.2 H Chloride 102 Carbon Dioxide 26 BUN 49 H D Creatinine 5.86 H Glucose 90 Calcium 8.3 L - ABG Interpretation ABG results: ABG ABG pH 7.36 pH Units (7.32-7.45) 06/22/16 16:09 ABG pCO2 55 mmHg (35-45) H 06/22/16 16:09 ABG pO2 52 mmHg (85-104) L 06/22/16 16:09 ABG O2 Saturation 85 % (95-98) L 06/22/16 16:09 PT/INR, D-dimer PT 38.6 Seconds (9.4-12.1) H 06/23/16 04:20 - Impressions Impressions Chest X-Ray 06/22/16 13:47 IMPRESSION: Findings of pulmonary edema. No pneumothorax. Small bilateral pleural effusions and bibasilar atelectasis. D/ / 06/22/2016 14:19:14 Phu Leonardo MD / bcarter Interpreting Provider: Phu Leonardo MD Consult Discharge Plan - Plan Referrals: Carl Cormier DO [Primary Care Provider] - (possible ecf placement ) Prescriptions: Daptomycin 600 mg IV Q48H #13 vial
--- NOTE | 2016-06-23 09:52 | Palliative Progress Note ---
Date of Encounter: 06/23/16 Time of Encounter: 09:00 - Assessment and plan (1) Airway clearance impairment Current Visit: Yes Status: Acute Assessment and plan: Continue Atropine drops - add Scopolamine patch (2) Dysphagia Current Visit: Yes Status: Acute Assessment and plan: Comfort feeds only r/t aspiration Qualifiers: Dysphagia type: other dysphagia Qualified Code(s): R13.19 - Other dysphagia (3) Decreased oral intake Current Visit: Yes Status: Acute Assessment and plan: Appears to continue to aspirate despite dietary modifications. Will address with family when they arrive. (4) Counseling regarding advanced care planning and goals of care Current Visit: Yes Status: Acute Assessment and plan: 50 min meeting with pt , 3 daughters, and 2 son-n-law re: goals of care. Events of this weekend discussed - family was here when his condition deteriorated yesterday. Patient had expressed wishes to that he would not want artificial feedings and no PEG tube. Family decided to no longer pursue dialysis and honor his wishes. Daughter has to fly back to [place] this evening , and some medical equipment needs set up. After discussion, plan to d/c home with [facility] tentatively Thursday. IR to remove dialysis line possibly later today. D/w DR. Andrade and Dr. Velez. Will continue to follow (5) AV fistula infection Current Visit: Yes Status: Acute Qualifiers: Encounter type: subsequent encounter Qualified Code(s): T82.7XXD - Infection and inflammatory reaction due to other cardiac and vascular devices, implants and grafts, subsequent encounter (6) ESRD (end stage renal disease) on dialysis Current Visit: Yes Status: Chronic (7) Supratherapeutic INR Current Visit: Yes Status: Acute - Time Spent With Patient Total time spent is greater than 50% in coordination of care (as documented) at patient's floor/unit and/or counseling patient: 25 - 35 minutes - Subjective Interval history: Patient awake, confused x3. Appears in mild respiratory distress. No family present. Reviewed events from this weekend. Patient most likely aspirated and developed respiratory distress. Family decided against re-intubation and code status was transitioned to DNRCC. Awaiting family meeting today. - Constitutional Vitals: Abnormal lab results RBC 2.65 M/mcL (4.19-5.50) L 06/23/16 04:20 Hgb 8.7 g/dL (12.9-16.9) L 06/23/16 04:20 Hct 28.2 % (37.5-50.1) L 06/23/16 04:20 MCV 106.4 fL (83.0-100.0) H 06/23/16 04:20 MCHC 30.9 g/dL (31.6-35.5) L 06/23/16 04:20 RDW 21.5 % (11.5-14.5) H 06/23/16 04:20 Plt Count 104 K/mcL (140-400) L 06/23/16 04:20 MPV 12.5 fL (9.4-12.4) H 06/23/16 04:20 Band Neutrophils % 10.0 % (0-4) H 06/15/16 03:17 Metamyelocytes % 2.0 % (0) H 06/15/16 03:17 Lymphocytes # 0.4 K/mcL (0.6-4.6) L 06/20/16 02:55 Nucleated RBCs/100 WBC 0.3 /100 WBC (0) H 06/20/16 02:55 Large Platelets Present (Not Present) A 06/15/16 03:17 Immature Plt Fraction 18.3 % (1.1-6.1) H 06/16/16 04:20 Polychromasia 1+ (Not Present) A 06/15/16 03:17 Anisocytosis 2+ (Not Present) A 06/20/16 02:55 Macrocytosis Present (Not Present) A 06/20/16 02:55 Target Cells 1+ (Not Present) A 06/15/16 03:17 Stomatocytes 1+ (Not Present) A 06/15/16 03:17 PT 38.6 Seconds (9.4-12.1) H 06/23/16 04:20 ABG pCO2 55 mmHg (35-45) H 06/22/16 16:09 ABG pO2 52 mmHg (85-104) L 06/22/16 16:09 ABG HCO3 31.1 mEQ/L (21-27) H 06/22/16 16:09 ABG Total CO2 32.8 mEq/L (20-26) H 06/22/16 16:09 ABG O2 Saturation 85 % (95-98) L 06/22/16 16:09 ABG Base Excess 4.7 mEq/L (-2.0 to 3.0) H 06/22/16 16:09 Potassium 5.2 mEq/L (3.5-4.5) H 06/23/16 04:20 BUN 49 mg/dL (8-26) H D 06/23/16 04:20 Creatinine 5.86 mg/dL (0.72-1.25) H 06/23/16 04:20 Est GFR ( Amer) 11 (> 60) L 06/23/16 04:20 Est GFR (Non-Af Amer) 9 (> 60) L 06/23/16 04:20 POC Glucose 91 (58-89) H 06/20/16 15:34 Calcium 8.3 mg/dL (8.6-10.8) L 06/23/16 04:20 Phosphorus 6.9 mg/dL (2.3-4.7) H 06/16/16 04:20 Iron 51 mcg/dL (65-175) L 06/16/16 04:20 Transferrin 167 mg/dL (174-364) L 06/16/16 04:20 Ferritin 1381 ng/ml (22-275) H 06/16/16 04:20 Albumin 2.3 g/dL (3.5-5.0) L 06/16/16 04:20 PTH Intact 199.7 pg/ml (8.5-72.5) H 06/16/16 04:20 General appearance: Present: no acute distress - Expanded Respiratory Exam Location: rhonchi: Left, Right, Upper, Lower - Cardiovascular Cardiovascular exam: Present: +S1, +S2 - GI/Abdominal GI/Abdominal exam: Present: normal bowel sounds, soft - Extremities Exam Extremities exam: Present: normal capillary refill, normal inspection - Neurological Exam Neurological exam: Present: alert - Psychiatric Psychiatric exam: Present: anxious - Skin Skin exam: Present: dry, pallor, warm Palliative Quality Palliative Quality: Screen for Code Status: Yes, Screen for Goals of Care: Yes, Screen for Pain: Yes, If Pain Regimen Started, Initiate Bowel Regimen: NA, Screen for Nausea/Vomitting: NA Code Status: 06/14/16 15:57 Resuscitation Status: Active [RES] Routine Comment: Resuscitation Status: Full Code 06/22/16 16:57 CODE [Resuscitation Status: Active] [RES] Routine Comment: Resuscitation Status: DNR-Comfort Care - Labs CBC & Chem 7: 06/23/16 04:20 06/23/16 04:20 Labs: Laboratory Results - last 24 hr 06/22/16 06/23/16 06/23/16 16:09 04:20 04:20 WBC 7.6 RBC 2.65 L Hgb 8.7 L Hct 28.2 L MCV 106.4 H MCH 32.8 MCHC 30.9 L RDW 21.5 H Plt Count 104 L MPV 12.5 H PT INR ABG pH 7.36 ABG pCO2 55 H ABG pO2 52 L ABG HCO3 31.1 H ABG Total CO2 32.8 H ABG O2 Saturation 85 L ABG Base Excess 4.7 H Liter Flow 2 Blood Gas Modality NC Sodium 138 Potassium 5.2 H Chloride 102 Carbon Dioxide 26 BUN 49 H D Creatinine 5.86 H Est GFR ( Amer) 11 L Est GFR (Non-Af Amer) 9 L BUN/Creatinine Ratio 8 Glucose 90 Calculated Osmolality 299 Calcium 8.3 L Creatine Kinase 06/23/16 06/23/16 04:20 04:20 WBC RBC Hgb Hct MCV MCH MCHC RDW Plt Count MPV PT 38.6 H INR 3.4 ABG pH ABG pCO2 ABG pO2 ABG HCO3 ABG Total CO2 ABG O2 Saturation ABG Base Excess Liter Flow Blood Gas Modality Sodium Potassium Chloride Carbon Dioxide BUN Creatinine Est GFR ( Amer) Est GFR (Non-Af Amer) BUN/Creatinine Ratio Glucose Calculated Osmolality Calcium Creatine Kinase 50 - Impressions Impressions Guidance Needle Placement Ultrasound 06/20/16 00:00 IMPRESSION: Successful ultrasound and fluoroscopy guided tunneled small bore central infusion catheter, as well as tunneled hemodialysis catheter placement. These may be used immediately. Successful temporary hemodialysis catheter removal. D/ / Kurtis Graves MD / Kurtis Graves MD Interpreting Provider: Kurtis Graves MD Chest X-Ray 06/22/16 13:47 IMPRESSION: Findings of pulmonary edema. No pneumothorax. Small bilateral pleural effusions and bibasilar atelectasis. D/ / 06/22/2016 14:19:14 Phu Lenoardo MD / bcarter Interpreting Provider: Phu Leonardo MD - ABG Interpretation ABG results: ABG ABG pH 7.36 pH Units (7.32-7.45) 06/22/16 16:09 ABG pCO2 55 mmHg (35-45) H 06/22/16 16:09 ABG pO2 52 mmHg (85-104) L 06/22/16 16:09 ABG O2 Saturation 85 % (95-98) L 06/22/16 16:09 PT/INR, D-dimer PT 38.6 Seconds (9.4-12.1) H 06/23/16 04:20 Consult Discharge Plan - Plan Referrals: Carl Cormier DO [Primary Care Provider] - (possible ecf placement ) Prescriptions: Daptomycin 600 mg IV Q48H #13 vial
[2016-06-23] MEDS ORDERED: 0.9 % Sodium Chloride 2,000 ML ONE (10:03)
[2016-06-23] MEDS ORDERED: OxyCODONE CONC 5 MG/0.25 ML ORAL.SYG PO PRN (13:21)
[2016-06-23] MEDS ORDERED: Scopolamine Patch 1.5 MG PATCH.TD72 TD SCH (13:30)
[2016-06-23] MEDS ORDERED: Atropine Sulfate 300 DROP/15 ML BOTTLE SL SCH (15:00)
--- NOTE | 2016-06-23 16:02 | Event Note ---
Date of Encounter: 06/23/16 Time of Encounter: 15:58 Patient was seen this am. He was difficult to arouse, but spontaneous breathing was noted. I spoke with palliative care after their family meeting and was updated on the family's decision to withdraw care which seems appropriate as the patient seems to have taken a significant clinical decompensation. I have informed Dr. Martin as well. Patient has been removed from the dialysis list for today. Unless the dialysis catheter is needed for iv access, or the family changes their mind about dialysis then it should be removed prior to discharge. Will sign off. Please call if questions.
[2016-06-23] MEDS: DAPTOmycin 600 MG in 0.9 % Sodium Chloride 100 ML IVPB SCH (17:47)
[2016-06-23] MEDS ORDERED: *HR* Morphine 2 MG/ML SYRINGE IVP PRN (23:19)
[2016-06-23] MEDS ORDERED: *HR* FentaNYL PATCH 12 MCG PATCH TD SCH (23:30)
[2016-06-24] MEDS: Atropine Sulfate 300 DROP/15 ML BOTTLE SL PRN (00:47)
[2016-06-24 00:55] VITALS: BP 82/46
[2016-06-24] MEDS: Ipratropium/Albuterol Neb 3 ML IH SCH (05:06)
[2016-06-24] MEDS ORDERED: Aspirin Enteric Coated 81 MG Tablet PO SCH (09:00)
--- NOTE | 2016-07-16 17:37 | Death Note ---
Discharge Sum: Summary - Date and Time Date of admission: 06/14/16 14:39 Date of : 06/24/16 Time of : 02:50 - Summary Details: 86 year old male transferred via life flight from [place] per request of the family as I understand it for continued care at [facility]. The patient presented to the local facility in [place] with altered mental status and fever. Ultimately, the patient was discovered to have localized infection of his left upper extremity AV fistula (end-stage renal disease patient) required resection of the same (2 1517) and underwent placement of a temporary left IJ catheter for hemodynamic dialysis. The other hospital course seemingly was complicated by the development of respiratory failure for which the patient required intubation for at least 1 or 2 days, possible aspiration pneumonia, encephalopathy. Patient did require administration of intravenous pressor agent for at least several days and at the time of the call to transfer this individual last week, he remained on low-dose pressor however that was titrated off perhaps 24-48 hours prior to the time of his transfer. This patient has an extensive past medical history which includes COPD, peripheral vascular disease for which she has a known abdominal aortic aneurysm , chronic atrial fibrillation and diastolic heart dysfunction, dementia, prostate cancer in the aforenoted end-stage renal disease. From review of the most recent progress note, the patient is currently receiving both daptomycin and meropenem for treatment of MSSA fistula infection (with bacteremia) and aspiration pneumonia respectively. The therapy for the aspiration pneumonia is seemingly complete at this time. Given the fact the patient had bacteremia however, will require a protracted course of daptomycin likely for 4 to 6 weeks assuming that he has sterilized blood cultures at this time and there is no evidence of dissemination of MSSA to other end organs. The patient became hypotensive and went to the ICU, was maintained on antibiotic therapy with daptomycin. On 06/23/16 family decided to pursue only confort measures and the patient on 06/24/16 at 02h50 AM. Had an absence of respirations, heart beat, and blood pressure. Dr. Marie paged and made aware. Laura Fischer NP paged and made aware. called and made aware, stated that she would try to find a ride here so that she could come visit. Loop contacted and body was ruled out for any donation. Case # [id number]. Central lines to left chest removed and gauze dressing applied over site. Post-mortem care will be given to pt after family leaves. Spouse also asked for body to be taken to [facility] in [place], - Additional Data Attending physician: Trae Angel Discharge Sum: Diag - PCOD Probable Cause of : Bacteremia - Contributing Factors (1) AV fistula infection cause of related to complications of MSSA bacteremia from infected AV fistula Discharge Sum: Prov - Provider Primary care physician: Carl Cormier Consults: 06/14/16 15:40 Consult to Pastoral Services [CONS] Routine Comment: Consult to Highway Design Engineer [CONS] Routine Reason for SW Consult: may need help when discharged 06/14/16 16:01 Consult to Physical Therapy [CONS] Routine Comment: strengthening Consult to Speech Therapy [CONS] Routine Comment: aspiration evaluation Reason for Consult: aspiration Call Completed: No 06/14/16 16:20 Consult to Nephrology [CONS] Routine Consulting Provider: Kidney Kelley/CATHLEEN/TRACY/WILY Reason for Consult: ESRD Time Notified: 16:21 Call Completed: No 06/15/16 10:22 Consult to Wound Care [CONS] Routine Reason for Consult: Please evaluate and treat the LUE wound s/p left AVF excision. Call Completed: No 06/16/16 08:00 Consult to Dialysis [CONS] ONCE 06/16/16 17:34 Consult to Palliative Care [CONS] Routine Comment: change in code status. wanting palli Consulting Provider: [facility] [place] 06/17/16 16:14 Consult to Pulmonology [CONS] Routine Consulting Provider: Pulm [facility] [place] Reason for Consult: Acute Resp Failure Call Completed: Yes 06/18/16 08:45 Consult to Dialysis [CONS] ONCE 06/19/16 08:52 Consult to Interventional Radiology [CONS] Routine Consulting Provider: Radiology Interventional [place] Reason for Consult: Please evaluate for a Permacath on Thursday06/20/16 and removal of the temporary HD catheter (which was placed at an outside hospital in [place]). Thank you. Call Completed: Yes 06/19/16 13:12 Consult to Interventional Radiology [CONS] Routine Consulting Provider: Radiology Interventional [facility] Reason for Consult: Planned placement of permacath tomorrow (06/20/16) for continued dialysis. Patient will require extended antibiotics; wanted to see if he could have tunnelled catheter placed in addition tomorrow. Thank you. Time Notified: 13:12 Call Completed: Yes 06/20/16 08:00 Consult to Dialysis [CONS] ONCE 06/23/16 08:30 Consult to Dialysis [CONS] ONCE 06/23/16 12:05 Consult to Interventional Radiology [CONS] Routine Consulting Provider: Radiology Interventional [facility] Reason for Consult: D/C dialysis line - pt with aspiration over the weekend. Family transitioned to comfort care and desire no artificial feeding. Dialysis to be discontinued Time Notified: 12:00 Call Completed: Yes
== END 2016-06-24 02:50 | disposition expired | DRG 949 ==
LOC: ICNU 14:39 → SUATTDRO 14:39 → ICNU 15:02 → 2ANU 06-16 13:32 → ICNU 06-17 16:27 → 2ANU 06-20 16:05
PROVIDERS: ADMIT Specialist; ATTEND Internal Medicine
PROC: IRPERMA (2016-06-20 12:00)